=== PATIENT | female | born 1935 | race Caucasian/White ===

== ENCOUNTER 2021-02-23 12:46 | Emergency (ER) | payer MEDICARE ==
[2021-02-23] MEDS ORDERED: HYDROcodone/APAP 5-325MG 1 EACH TAB PO STA (13:12)
--- NOTE | 2021-02-23 13:19 | ED ---
General Adult HPI - General Chief complaint: Back Pain/Injury Stated complaint: Rash Time Seen by Provider: 02/23/21 13:03 Source: patient, RN notes reviewed Mode of arrival: wheelchair Limitations: no limitations - History of Present Illness Initial comments: Patient is a pleasant 85-year-old female presenting to the emergency Department with complaints of rash with discomfort left flank. Onset of symptoms was 2 days ago. Patient did have some mild discomfort a couple of days prior to that. Patient states rash is irritating when something touches it. Area starts in the left mid to lower back and does radiate around to the abdomen. Rash also follows the same distribution. No history of similar symptoms previously. Patient states her did have shingles once with similar rash. Discomfort is moderate. No fever. No headache. - Related Data Home Medications Medication Instructions Recorded Confirmed Acetaminophen [Tylenol] 500 mg PO Q6H PRN 06/04/16 06/16/16 Calcium Carbonate [Tums] 2 - 4 tab PO DAILY PRN 06/04/16 06/16/16 Cholecalciferol [Vitamin D3 (25 2,000 unit PO HS 06/04/16 06/16/16 Mcg = 1000 Iu)] Cyclobenzaprine [Flexeril] 5 mg PO Q8HR PRN 06/04/16 06/16/16 Famotidine [Pepcid] 20 mg OP DAILY 06/04/16 06/16/16 Ferrous Sulfate [Iron (65 MG 325 mg PO HS 06/04/16 06/16/16 Elemental)] Fluticasone Nasal [place] [Flonase 1 spray EA NOSTRIL DAILY 06/04/16 06/16/16 Nasal [place]] Furosemide [Lasix] 60 mg PO DAILY 06/04/16 06/16/16 HYDROcodone/APAP 7.5-325MG [[place] 1 tab PO Q6H PRN 06/04/16 06/16/16 7.5-325] Isosorbide Mononitrate ER [Imdur] 30 mg PO DAILY 06/04/16 06/16/16 Loratadine [Claritin] 10 mg PO DAILY PRN 06/04/16 06/16/16 Magnesium Hydroxide [Milk of 30 ml PO DAILY PRN 06/04/16 06/16/16 Magnesia] Metoprolol Tartrate [Lopressor] 12.5 mg PO HS 06/04/16 06/16/16 Sennosides [Senna] 8.6 mg PO BID 06/04/16 06/16/16 Simvastatin [Zocor] 10 mg PO HS 06/04/16 06/16/16 guaiFENesin [Mucinex] 600 mg PO Q12HR PRN 06/04/16 06/16/16 lisinopriL [Zestril] 10 mg PO BID 06/04/16 06/16/16 Previous Rx's Medication Instructions Recorded ALPRAZolam [Xanax] 0.25 mg PO TID PRN #90 tab 06/19/16 Aspirin 325 mg PO BID #60 tab 06/19/16 HYDROcodone/APAP 7.5-325MG [[place] 1 - 2 each PO Q6HR PRN #90 tab 06/19/16 7.5-325] Sennosides-Docusate Sodium 2 tab PO DAILY #60 tablet 06/19/16 [Senokot-S] bisacodyL [Dulcolax] 10 mg RECTAL DAILY PRN #0 supp 06/19/16 valACYclovir HCL [Valtrex] 1 tab PO BID #14 tablet 02/23/21 Allergies Allergy/AdvReac Type Severity Reaction Status Date / Time clarithromycin Allergy Nausea & Verified 02/23/21 12:53 Vomiting clindamycin Allergy Dyspnea Verified 02/23/21 12:53 Latex, Natural Rubber Allergy SWELLING Verified 02/23/21 12:52 AROUND FACE levalbuterol Allergy Dyspnea Verified 02/23/21 12:53 Penicillins Allergy Swelling Verified 02/23/21 12:52 Review of Systems ROS Statement: Those systems with pertinent positive or pertinent negative responses have been documented in the HPI. ROS Other: All systems not noted in ROS Statement are negative. Constitutional: Denies: fever, chills Eyes: Denies: eye pain ENT: Denies: ear pain Respiratory: Denies: cough Cardiovascular: Denies: chest pain Endocrine: Denies: fatigue Gastrointestinal: Reports: as per HPI Genitourinary: Denies: dysuria Musculoskeletal: Reports: as per HPI Skin: Reports: rash, lesions Neurological: Denies: weakness Past Medical History Past Medical History: Eye Disorder, GERD/Reflux, Hyperlipidemia, Hypertension, Osteoarthritis (OA) Additional Past Medical History / Comment(s): STAGE ONE GLAUCOMA Additional Past Surgical History / Comment(s): LT TKA X 2. ORIF LT LEG. COLONOSCOPY. HERNIA X 2 Additional Past Anesthesia/Blood Transfusion Reaction / Comment(s): OVER MEDICATED AFTER LT TKA. UTI. UNCONTROLLED PAIN BEFORE AND AFTER SURGERY Past Psychological History: No Psychological Hx Reported Smoking Status: Never smoker Past Alcohol Use History: None Reported Past Drug Use History: None Reported - Past Family History Mother Family Medical History: Cancer Additional Family Medical History / Comment(s): age 49 from breast cancer Father Family Medical History: Myocardial Infarction ([place]) Additional Family Medical History / Comment(s): in his 60's from [place] Brother(s) Family Medical History: Diabetes Mellitus Additional Family Medical History / Comment(s): 2nd brother was paralized from accident later from complications Sister(s) Family Medical History: Diabetes Mellitus General Exam Limitations: no limitations General appearance: alert, in no apparent distress Head exam: Present: normocephalic Eye exam: Present: normal appearance Neck exam: Present: normal inspection Respiratory exam: Present: normal lung sounds bilaterally Cardiovascular Exam: Present: regular rate, normal rhythm GI/Abdominal exam: Present: soft. Absent: distended, tenderness Extremities exam: Present: normal inspection Back exam: Present: normal inspection. Absent: vertebral tenderness Neurological exam: Present: alert Psychiatric exam: Present: normal affect, normal mood Skin exam: Present: rash (Patient does have 4 patches extending from her left upper lumbar through left mid abdomen with erythematous base and vesicular lesions.) Course Vital Signs 02/23/21 12:48 Temperature 97.8 F Pulse Rate 102 H Respiratory 18 Rate Blood Pressure 133/80 O2 Sat by Pulse 97 Oximetry Disposition Clinical Impression: Herpes zoster Disposition: HOME SELF-CARE Condition: Stable Instructions (If sedation given, give patient instructions): Shingles (ED), Shingles Vaccine (ED) Additional Instructions: Please do follow-up to primary care physician in the being the week. Prescr iption for antiviral medication has been sent to your pharmacy. Return for fevers, headaches weakness or confusion, worsening symptoms or other concerns. You may also take [id number] ibuprofen for discomfort. Lidocaine patches may also be used. Prescriptions: valACYclovir HCL [Valtrex] 1 tab PO BID #14 tablet Is patient prescribed a controlled substance at d/c from ED?: No Referrals: Bharath Hermosillo MD [Primary Care Provider] - 1-2 days Time of Disposition: 13:17
[2021-02-23] MEDS ORDERED: ACET/COD 300 MG/30 MG STARTER PACK 6 TAB BTL PO STA (14:03)
[2021-02-23] MEDS ORDERED: valACYclovir HCL 1,000 MG TABLET PO STA (14:03)
[2021-02-23 14:51] VITALS: BP 121/70; PULSE 98; RESP 20; TEMP 98
== END 2021-02-23 14:25 | disposition home or self-care (01) ==
LOC: EC 12:46
DX: B02.9 Zoster without complications (principal); M19.90 Unspecified osteoarthritis, unspecified site; K21.9 Gastro-esophageal reflux disease without esophagitis; I10 Essential (primary) hypertension; Z88.1 Allergy status to other antibiotic agents; Z88.0 Allergy status to penicillin; Z91.040 Latex allergy status; Z88.8 Allergy status to other drugs, medicaments and biological substances; Z79.82 Long term (current) use of aspirin; Z79.899 Other long term (current) drug therapy
CPT/HCPCS: 99282

== ENCOUNTER → 2021-05-22 | Outpatient (CLI) | payer MEDICARE ==
--- NOTE | 2021-05-23 07:26 | ECHOF ---
Referral Reason:I48.91 Afib MEASUREMENTS -------- HEIGHT: 165.1 cm WEIGHT: 102.1 kg BP: 129/57 RVIDd: 2.6 cm (< 3.3) IVSd: 1.2 cm (0.6 - 1.1) LVIDd: 4.7 cm (3.9 - 5.3) LVPWd: 1.1 cm (0.6 - 1.1) IVSs: 1.4 cm LVIDs: 3.6 cm LVPWs: 1.4 cm LA Diam: 4.0 cm (2.7 - 3.8) LAESV Index (A-L): 30.32 ml/m Ao Diam: 3.0 cm (2.0 - 3.7) AV Cusp: 1.5 cm (1.5 - 2.6) MV EXCURSION: 13.666 mm (> 18.000) MV EF SLOPE: 73 mm/s (70 - 150) EPSS: 0.8 cm RAP: 5.00 mmHg RVSP: 40.30 mmHg FINDINGS -------- Atrial fibrillation. This was a technically adequate study. The left ventricular size is normal. There is borderline concentric left ventricular hypertrophy. Overall left ventricular systolic function is low-normal with, an EF between 50 - 55 %. The right ventricle is normal in size. LA is midly dilated 29-33ml/m2. The right atrium is normal in size. Interatrial and interventricular septum intact. There is mild aortic valve sclerosis. Trace amount of aortic regurgitation. Mild tricuspid regurgitation present. There is mild pulmonary hypertension. The right ventricular systolic pressure, as measured by Doppler, is 40.30mmHg. Trace/mild (physiologic) pulmonic regurgitation. The aortic root size is normal. Normal inferior vena cava with normal inspiratory collapse consistent with estimated right atrial pre ssure of 5 mmHg. There is no pericardial effusion. CONCLUSIONS -------- 1. The left ventricular size is normal. 2. There is borderline concentric left ventricular hypertrophy. 3. Overall left ventricular systolic function is low-normal with, an EF between 50 - 55 %. 4. LA is midly dilated 29-33ml/m2. 5. Interatrial and interventricular septum intact. 6. There is mild aortic valve sclerosis. 7. Trace amount of aortic regurgitation. 8. Mild tricuspid regurgitation present. 9. There is mild pulmonary hypertension. 10. The right ventricular systolic pressure, as measured by Doppler, is 40.30mmHg. 11. Trace/mild (physiologic) pulmonic regurgitation. 12. There is no pericardial effusion. LIGHTNING ROD INSTALLER: Alycia Arteaga RDCS
== END | disposition home or self-care (01) ==
LOC: RADECHMAIN 14:35
PROVIDERS: ATTEND Internal Medicine Geriatric Medicine
DX: I51.7 Cardiomegaly (principal); I35.8 Other nonrheumatic aortic valve disorders; I35.1 Nonrheumatic aortic (valve) insufficiency; I27.20 Pulmonary hypertension, unspecified; I37.1 Nonrheumatic pulmonary valve insufficiency; I48.91 Unspecified atrial fibrillation
CPT/HCPCS: 93306

== ENCOUNTER 2024-01-26 18:39 | Observation (INO) | payer MEDICARE ==
[2024-01-26 19:37] LABS: Basophils # (A) 0.1 k/uL (0-0.2); Basophils % (A) 1 %; Eosinophils # (A) 0.2 k/uL (0-0.7); Eosinophils % (A) 4 %; HCT 37.5 % (34.0-46.0); HGB 12.7 gm/dL (11.4-16.0); Lymphocytes # (A) 2.1 k/uL (1.0-4.8); Lymphocytes % (A) 35 %; MCH 36.3 pg (25.0-35.0); MCHC 33.9 g/dL (31.0-37.0); MCV 107.1 fL (80.0-100.0); Macrocytosis Moderate; Mean Platelet Volume 8.2; Monocytes # (A) 0.5 k/uL (0-1.0); Monocytes % (A) 8 %; Neutrophils # (A) 2.9 k/uL (1.3-7.7); Neutrophils % (A) 49 %; Platelet Count 194 k/uL (150-450); RDW 12.5 % (11.5-15.5)
--- NOTE | 2024-01-26 19:41 | ED ---
General Adult HPI - General Chief complaint: Extremity Injury, Lower Stated complaint: Swelling in legs Time Seen by Provider: 01/26/24 18:52 Source: patient, RN notes reviewed Mode of arrival: ambulatory Limitations: no limitations - History of Present Illness Initial comments: 88-year-old female presents to the emergency department for evaluation of b ilateral lower extremity edema. She states that over the past few weeks she has noticed worsening edema to both of her legs. She does report that she takes water pills. She admits to shortness of breath when she bends over. Denies orthopnea or PND. Denies fever, chills. Denies chest pain. - Related Data Home Medications Medication Instructions Recorded Confirmed Cholecalciferol [Vitamin D3 (25 50 mcg PO W/LUNCH 06/04/16 01/26/24 Mcg = 1000 Iu)] Ferrous Sulfate [Iron (65 MG 325 mg PO W/SUPPER 06/04/16 06/16/16 Elemental)] Fluticasone Nasal [place] [Flonase 1 spr EA NOSTRIL DAILY PRN 06/04/16 01/26/24 Nasal [place]] Isosorbide Mononitrate ER [Imdur] 30 mg PO DAILY 06/04/16 01/26/24 Metoprolol Tartrate [Lopressor] 25 mg PO BID 06/04/16 01/26/24 guaiFENesin [Mucinex] 600 mg PO Q12HR PRN 06/04/16 01/26/24 Albuterol Inhaler [Ventolin Hfa 1 - 2 puff INHALATION RT-QID PRN 01/26/24 01/26/24 Inhaler] Apixaban [Eliquis] 5 mg PO BID 01/26/24 01/26/24 Brimonidine Tartrate [Alphagan P 1 drop BOTH EYES BID 01/26/24 01/26/24 0.2% Ophth Soln] Budesonide [Pulmicort] 0.5 mg INHALATION RT-BID PRN 01/26/24 01/26/24 Bumetanide [BUMEX] 2 mg PO W/SUPPER 01/26/24 01/26/24 Bumetanide [BUMEX] 4 mg PO DAILY 01/26/24 01/26/24 Cetirizine HCl [Zyrtec] 10 mg PO W/LUNCH 01/26/24 01/26/24 Circulation And Vein Support 1 tab PO W/SUPPER 01/26/24 01/26/24 Ibandronate Sodium [Boniva] 150 mg PO Q30D 01/26/24 01/26/24 L.acidoph,Paracasei, B.lactis 1 cap PO DAILY 01/26/24 01/26/24 [Probiotic] Latanoprost [Latanoprost 0.005%] 1 drop BOTH EYES HS 01/26/24 01/26/24 Montelukast [Singulair] 10 mg PO HS 01/26/24 01/26/24 Multivit-Min/Folic Acid/Biotin 133.3 mcg PO W/SUPPER 01/26/24 01/26/24 [Hair, Skin and Nails Softgel] [place]-3(Unknown Dose) 1 cap PO W/LUNCH 01/26/24 01/26/24 Pantoprazole [Protonix] 40 mg PO W/SUPPER 01/26/24 01/26/24 Potassium Chloride ER [K-Dur 20] 40 meq PO BID 01/26/24 01/26/24 Primidone 100 mg PO BID-W/MEALS 01/26/24 01/26/24 Rosuvastatin [Crestor] 10 mg PO HS 01/26/24 01/26/24 Spironolactone [Aldactone] 25 mg PO DAILY 01/26/24 01/26/24 Vit C/E/Zn/Coppr/Lutein/Zeaxan 1 cap PO BID@1000,2100 01/26/24 01/26/24 [Preservision Areds 2 Softgel] allopurinoL 100 mg PO DAILY 01/26/24 01/26/24 metOLazone [Zaroxolyn] 2.5 mg PO Q2D 01/26/24 01/26/24 rOPINIRole HCL [Requip] 1 mg PO BID@1700,2100 01/26/24 01/26/24 traZODone HCL 100 mg PO HS 01/26/24 01/26/24 Allergies Allergy/AdvReac Type Severity Reaction Status Date / Time clarithromycin Allergy Nausea & Verified 01/26/24 18:47 Vomiting clindamycin Allergy Dyspnea Verified 01/26/24 18:47 Latex, Natural Rubber Allergy SWELLING Verified 01/26/24 18:47 AROUND FACE levalbuterol Allergy Dyspnea Verified 01/26/24 18:47 Penicillins Allergy Swelling Verified 01/26/24 18:47 Review of Systems ROS Statement: Those systems with pertinent positive or pertinent negative responses have been documented in the HPI. ROS Other: All systems not noted in ROS Statement are negative. Past Medical History Past Medical History: Eye Disorder, GERD/Reflux, Hyperlipidemia, Hypertension, Osteoarthritis (OA) Additional Past Medical History / Comment(s): STAGE ONE GLAUCOMA History of Any Multi-Drug Resistant Organisms: None Reported Additional Past Surgical History / Comment(s): LT TKA X 2. ORIF LT LEG. COLONOSCOPY. HERNIA X 2 Additional Past Anesthesia/Blood Transfusion Reaction / Comment(s): OVER MEDICATED AFTER LT TKA. UTI. UNCONTROLLED PAIN BEFORE AND AFTER SURGERY Past Psychological History: No Psychological Hx Reported Smoking Status: Never smoker Past Alcohol Use History: None Reported Past Drug Use History: None Reported - Past Family History Mother Family Medical History: Cancer Additional Family Medical History / Comment(s): age 49 from breast cancer Father Family Medical History: Myocardial Infarction ([place]) Additional Family Medical History / Comment(s): in his 60's from [place] Brother(s) Family Medical History: Diabetes Mellitus Additional Family Medical History / Comment(s): 2nd brother was paralized from accident later from complications Sister(s) Family Medical History: Diabetes Mellitus General Exam Limitations: no limitations General appearance: alert, in no apparent distress Head exam: Present: atraumatic, normocephalic, normal inspection Eye exam: Present: normal appearance, PERRL, EOMI. Absent: scleral icterus, conjunctival injection, periorbital swelling ENT exam: Present: normal exam, mucous membranes moist Respiratory exam: Present: rales (Minimal on the basis of bilateral lungs). Absent: respiratory distress, wheezes, rhonchi, stridor Cardiovascular Exam: Present: regular rate, irregular rhythm, normal heart sounds. Absent: systolic murmur, diastolic murmur, rubs, gallop, clicks GI/Abdominal exam: Present: soft, normal bowel sounds. Absent: distended, tenderness, guarding, rebound, rigid Extremities exam: Present: full ROM, tenderness, normal capillary refill, pedal edema, other (2+ pitting edema bilateral lower extremities). Absent: joint swelling, calf tenderness Back exam: Present: normal inspection Neurological exam: Present: alert, oriented X3 Psychiatric exam: Present: normal affect, normal mood Skin exam: Present: warm, dry, intact, normal color. Absent: rash Course Vital Signs 01/26/24 01/26/24 01/26/24 18:44 19:15 22:35 Temperature 98.0 F Pulse Rate 66 75 70 Respiratory 16 18 18 Rate Blood Pressure 124/73 126/80 135/68 O2 Sat by Pulse 98 99 97 Oximetry - Reevaluation(s) Reevaluation #1: 01/26/24 22:15 Patient reevaluated and informed on results of laboratory studies, chest x-ray. Patient states that she had some pressure in her chest which was new. She did not have this pain when she arrived to the ED. Repeat EKG and troponin obtained. EKG at 2221 shows A-fib with a rate of 76, compared to prior EKG at 1855 which shows no acute T wave changes. Reevaluation #2: 01/26/24 23:00 Patient had negative troponin. Discussed with patient and family. Spoke with Dr. Hermosillo. Patient will be admitted for CHF exacerbation, chest pain. 01/26/24 23:21 Medical Decision Making - Medical Decision Making Was pt. sent in by a medical professional or institution (, PA, FAMILY RESOURCE SPECIALIST, urgent care, hospital, or [place] health care facility...) When possible be specific @ -No Did you speak to anyone other than the patient for history (EMS, parent, family, police, friend...)? What history was obtained from this source @ -No Did you review nursing and triage notes (agree or disagree)? Why? @ -I reviewed and agree with nursing and triage notes Were old charts reviewed (outside hosp., previous admission, EMS record, old EKG, old radiological studies, urgent care reports/EKG's, [place] health care facility records)? Report findings @ -No old charts were reviewed Differential Diagnosis (chest pain, altered mental status, abdominal pain women, abdominal pain men, vaginal bleeding, weakness, fever, dyspnea, syncope, headache, dizziness, GI bleed, back pain, seizure, CVA, palpatations, mental health, musculoskeletal)? @ -Differential Chest Pain: Stable Angina, Unstable Angina, STEMI, NSTEMI Aortic Dissection, Pneumothorax, Musculoskeletal, Esophageal Spasm GERD, Cholecystitis, Pancreatitis, Zoster, this is not meant to be an all-inclusive list. EKG interpreted by me (3pts min.). @ -EKG at 1855 shows A-fib rate 74, QRS 114, QTQTc [id number] EKG at 2221 shows A-fib rate 76, QRS 109, QTQTc [id number] X-rays interpreted by me (1pt min.). @ -Chest x-ray shows cardiomegaly with mild pulmonary vascular congestion CT interpreted by me (1pt min.). @ -None done U/S interpreted by me (1pt. min.). @ -None done What testing was considered but not performed or refused? (CT, X-rays, U/S, labs)? Why? @ -None What meds were considered but not given or refused? Why? @ -None Did you discuss the management of the patient with other professionals (professionals i.e. , PA, FAMILY RESOURCE SPECIALIST, lab, RT, psych nurse, clinical social worker, account maintenance representative, teacher, chief scientific officer, pillowcase cutter)? Give summary @ -Discussed with Dr. Hermosillo, patient will be admitted as observation for chest pain, CHF exacerbation, cardiology will be consulted Was smoking cessation discussed for >3mins.? @ -No Was critical care preformed (if so, how long)? @ -No Were there social determinants of health that impacted care today? How? (Homelessness, low income, unemployed, alcoholism, drug addiction, transportation, low edu. Level, literacy, decrease access to med. care, snf, rehab)? @ -No Was there de-escalation of care discussed even if they declined (Discuss DNR or withdrawal of care, Hospice)? DNR status @ -No What co-morbidities impacted this encounter? (DM, HTN, Smoking, COPD, CAD, Cancer, CVA, ARF, Chemo, Hep., AIDS, mental health diagnosis, sleep apnea, morbid obesity)? @ -CHF, Was patient admitted / discharged? Hospital course, mention meds given and route, prescriptions, significant lab abnormalities, going to OR and other pertinent info. @ -Admitted. Patient presented to the emergency department for evaluation of lower extremity edema. Laboratory studies obtained. CBC shows normal WBC at 6.0, normal h/h; normal coagulation studies; elevated BUN at 58, creatinine 1.24; elevated BNP 3050 ; negative troponin. Chest x-ray shows cardiomegaly with mild pulmonary vascular congestion. While in ED, patient started experiencing chest pressure. Repeat EKG was performed which showed no acute T wave, ST abnormalities. Troponin was obtained which was negative. Repeat troponins will be drawn. Case was discussed with patient's primary care provider, Dr. Hermosillo who is accepting of the admission. Patient will be admitted for observation for chest pain, CHF exacerbation. Consult for cardiology. Patient and family understanding agreeable with plan. Patient stable at time of discharge. Case discussed with Dr. Lou Undiagnosed new problem with uncertain prognosis? @ -No Drug Therapy requiring intensive monitoring for toxicity (Heparin, Nitro, Insulin, Cardizem)? @ -No Were any procedures done? @ -No Diagnosis/symptom? @ -CHF exacerbation, chest pain Acute, or Chronic, or Acute on Chronic? @ -acute Uncomplicated (without systemic symptoms) or Complicated (systemic symptoms)? @ -uncomplicated Side effects of treatment? @ -No Exacerbation, Progression, or Severe Exacerbation? @ -No Poses a threat to life or bodily function? How? (Chest pain, [place], MA, pneumonia, PE, COPD, DKA, ARF, appy, cholecystitis, CVA, Diverticulitis, Homicidal, Suicidal, threat to staff... and all critical care pts) @ -No - Lab Data Result diagrams: 01/26/24 19:29 01/26/24 19:29 Lab Results 01/26/24 01/26/24 01/26/24 Range/Units 19:29 19:29 19:29 WBC 6.0 (3.8-10.6) k/uL RBC 3.50 L (3.80-5.40) m/uL Hgb 12.7 (11.4-16.0) gm/dL Hct 37.5 (34.0-46.0) % MCV 107.1 H (80.0-100.0) fL MCH 36.3 H (25.0-35.0) pg MCHC 33.9 (31.0-37.0) g/dL RDW 12.5 (11.5-15.5) % Plt Count 194 (150-450) k/uL MPV 8.2 Neutrophils % 49 % Lymphocytes % 35 % Monocytes % 8 % Eosinophils % 4 % Basophils % 1 % Neutrophils # 2.9 (1.3-7.7) k/uL Lymphocytes # 2.1 (1.0-4.8) k/uL Monocytes # 0.5 (0-1.0) k/uL Eosinophils # 0.2 (0-0.7) k/uL Basophils # 0.1 (0-0.2) k/uL Macrocytosis Moderate PT 10.6 (10.0-12.5) sec INR 1.0 (<1.2) APTT 22.2 (22.0-30.0) sec Sodium 136 L (137-145) mmol/L Potassium 3.6 (3.5-5.1) mmol/L Chloride 93 L (98-107) mmol/L Carbon Dioxide 36 H (22-30) mmol/L Anion Gap 7 mmol/L BUN 58 H (7-17) mg/dL Creatinine 1.24 H (0.52-1.04) mg/dL Est GFR (CKD-EPI)AfAm 45 (>60 ml/min/1.73 sqM) Est GFR (CKD-EPI)NonAf 39 (>60 ml/min/1.73 sqM) Glucose 104 H (74-99) mg/dL Calcium 9.0 (8.4-10.2) mg/dL Total Bilirubin 0.4 (0.2-1.3) mg/dL AST 19 (14-36) U/L ALT 14 (4-34) U/L Alkaline Phosphatase 59 (38-126) U/L Troponin I (0.000-0.034) ng/mL NT-Pro-B Natriuret Pep 3050 pg/mL Total Protein 6.5 (6.3-8.2) g/dL Albumin 3.7 (3.5-5.0) g/dL Urine Color Urine Appearance (Clear) Urine pH (5.0-8.0) Ur Specific [place] (1.001-1.035) Urine Protein (Negative) Urine Glucose (UA) (Negative) Urine Ketones (Negative) Urine Blood (Negative) Urine Nitrite (Negative) Urine Bilirubin (Negative) Urine Urobilinogen (<2.0) mg/dL Ur Leukocyte Esterase (Negative) Urine RBC (0-5) /hpf Urine WBC (0-5) /hpf Ur Squamous Epith Cells (0-4) /hpf Urine Bacteria (None) /hpf Hyaline Casts (0-2) /lpf Granular Casts (0) /lpf 01/26/24 01/26/24 Range/Units 21:30 22:26 WBC (3.8-10.6) k/uL RBC (3.80-5.40) m/uL Hgb (11.4-16.0) gm/dL Hct (34.0-46.0) % MCV (80.0-100.0) fL MCH (25.0-35.0) pg MCHC (31.0-37.0) g/dL RDW (11.5-15.5) % Plt Count (150-450) k/uL MPV Neutrophils % % Lymphocytes % % Monocytes % % Eosinophils % % Basophils % % Neutrophils # (1.3-7.7) k/uL Lymphocytes # (1.0-4.8) k/uL Monocytes # (0-1.0) k/uL Eosinophils # (0-0.7) k/uL Basophils # (0-0.2) k/uL Macrocytosis PT (10.0-12.5) sec INR (<1.2) APTT (22.0-30.0) sec Sodium (137-145) mmol/L Potassium (3.5-5.1) mmol/L Chloride (98-107) mmol/L Carbon Dioxide (22-30) mmol/L Anion Gap mmol/L BUN (7-17) mg/dL Creatinine (0.52-1.04) mg/dL Est GFR (CKD-EPI)AfAm (>60 ml/min/1.73 sqM) Est GFR (CKD-EPI)NonAf (>60 ml/min/1.73 sqM) Glucose (74-99) mg/dL Calcium (8.4-10.2) mg/dL Total Bilirubin (0.2-1.3) mg/dL AST (14-36) U/L ALT (4-34) U/L Alkaline Phosphatase (38-126) U/L Troponin I <0.012 (0.000-0.034) ng/mL NT-Pro-B Natriuret Pep pg/mL Total Protein (6.3-8.2) g/dL Albumin (3.5-5.0) g/dL Urine Color Colorless Urine Appearance Clear (Clear) Urine pH 7.0 (5.0-8.0) Ur Specific [place] 1.016 (1.001-1.035) Urine Protein Negative (Negative) Urine Glucose (UA) Negative (Negative) Urine Ketones Negative (Negative) Urine Blood Negative (Negative) Urine Nitrite Negative (Negative) Urine Bilirubin Negative (Negative) Urine Urobilinogen <2.0 (<2.0) mg/dL Ur Leukocyte Esterase Large H (Negative) Urine RBC 1 (0-5) /hpf Urine WBC 16 H (0-5) /hpf Ur Squamous Epith Cells 2 (0-4) /hpf Urine Bacteria Rare H (None) /hpf Hyaline Casts 1 (0-2) /lpf Granular Casts 1 (0) /lpf Disposition Clinical Impression: Chest pain, CHF exacerbation Disposition: ADMITTED IP TO THIS HOSP Condition: Stable Is patient prescribed a controlled substance at d/c from ED?: No Referrals: Bharath Hermosillo MD [Primary Care Provider] - 1-2 days
[2024-01-26 19:59] LABS: ALT 14 U/L (4-34); AST 19 U/L (14-36); African American GFR (CKD) 45 (>60 ml/min/1.73 sqM); Albumin 3.7 g/dL (3.5-5.0); Alkaline Phosphatase 59 U/L (38-126); Anion Gap 7 mmol/L; Blood Urea Nitrogen 58 mg/dL (7-17); Carbon Dioxide 36 mmol/L (22-30); Chloride 93 mmol/L (98-107); Glucose 104 mg/dL (74-99); Non-African American GFR(CKD) 39 (>60 ml/min/1.73 sqM); Potassium 3.6 mmol/L (3.5-5.1); Sodium 136 mmol/L (137-145); Total Bilirubin 0.4 mg/dL (0.2-1.3); Total Protein 6.5 g/dL (6.3-8.2)
[2024-01-26 20:00] LABS: Partial Thromboplastin Time 22.2 sec (22.0-30.0); Prothrombin Time 10.6 sec (10.0-12.5)
[2024-01-26 20:07] LABS: NT-Pro-B-Type Natriuretic Pept 3050 pg/mL
--- NOTE | 2024-01-26 20:37 | XR ---
EXAMINATION TYPE: XR chest 2V DATE OF EXAM: 01/26/2024 8:25 PM CLINICAL INDICATION:Female, 88 years old with history of shortness of breath; [facility] COMPARISON: Chest radiographs from 06/18/2016 TECHNIQUE: XR chest 2V Frontal and lateral views of the chest. FINDINGS: Lungs/Pleura: There is no evidence of pleural effusion, focal consolidation, or pneumothorax. Pulmonary vascularity: Pulmonary vascular congestion. Heart/mediastinum: Cardiomediastinal silhouette is prominent in size. Musculoskeletal: No acute osseous pathology. IMPRESSION: Cardiomegaly and mild pulmonary vascular congestion. Correlate with BNP for congestive heart failure.
[2024-01-26 22:06] LABS: Appearance,Urine Clear (Clear); Bacteria,Urine Rare /hpf; Bilirubin,Urine Negative (Negative); Blood,Urine Negative (Negative); Color,Urine Colorless; Glucose,Urine (UA) Negative (Negative); Granular Casts,Urine 1 /lpf (0); Hyaline Casts,Urine 1 /lpf (0-2); Ketones,Urine Negative (Negative); Leukocyte Esterase,Urine Large (Negative); Nitrite,Urine Negative (Negative); Protein,Urine Negative (Negative); RBC,Urine 1 /hpf (0-5); Specific Gravity,Urine 1.016 (1.001-1.035); Squamous Epithelial Cell,Urine 2 /hpf (0-4); Urobilinogen,Urine <2.0 mg/dL (<2.0); WBC,Urine 16 /hpf (0-5)
[2024-01-26] MEDS ORDERED: NALOXONE 0.4 MG/ML 1 ML VIAL IV PRN (22:58)
[2024-01-26] MEDS: MORPHINE SULFATE 4 MG/ML SYRINGE IV PRN (23:32)
[2024-01-26] MEDS: FUROSEMIDE 10 MG/ML 4 ML VIAL IV STA (23:34)
[2024-01-27] MEDS ORDERED: FLUTICASONE 50MCG/SPRAY NASAL 16GM EA NOSTRIL PRN (05:22)
[2024-01-27] MEDS ORDERED: guaiFENesin 600 MG TABLET.ER PO PRN (05:22)
[2024-01-27] MEDS: PRIMIDONE 50 MG TAB PO SCH (06:32)
--- NOTE | 2024-01-27 08:15 | P.HPIM ---
History of Present Illness H&P Date: 01/27/24 HISTORY OF PRESENT ILLNESS: 88-year-old one of our office patient with active medical history of hypertension, hyperlipidemia, A-fib, anasarca, GERD, essential tremor, mild s ystolic congestive heart failure, osteoporosis, chronic kidney disease, chronic anemia, who has a history of asthma as well and has been having significant worsening edema for the last few years with adjustment of her diuretics repeatedly to gain 12 pounds last 2 weeks according to family patient lives in [facility] [place] and take her medication regularly. Has been complaining of worsening shortness of breath and worsening edema along with slight discomfort in the legs bilaterally. Developing and to have PND and orthopnea not been able to lay down flat and tiredness fatigue with minimal exertion. Her Bumex is up to total of 4 mg in the morning 2 mg in the evening still on spironolactone and Zaroxolyn despite the change in medication less than 4 weeks ago patient edema become worse. Patient was seen at the emergency department at [facility] Found to have acute kidney injury with BUN 58 creatinine 1.24 with sodium of 136, her BNP was 3050 troponin was negative normal liver enzymes UA was positive as well patient has not been having any symptoms. EKG showed atrial fibrillation with pulse well- controlled at 76, chest x-ray showed cardiomegaly and mild pulmonary vascular congestion. Do not remember when patient had her echocardiogram last time she was diagnosed early with congestive heart failure and diastolic dysfunction along with her anasarca and lymphedema and the increase in medication and have been gradually she is known to have history of A-fib with mild atherosclerotic heart disease with no anginal signs and symptoms and has not had any heart cath or any intervention. Patient be hospitalized on IV diuretics will adjust her medication consult cardiology echocardiogram will be done repeat CK troponin x 3. REVIEW OF SYSTEMS: CONSTITUTIONAL: Obese in slight distress. EYES: No icterus sclerae, no conjunctivitis. EARS, NOSE, MOUTH, THROAT, and FACE: No sore throat, lymphadenopathy, carotid bruits or deformity. RESPIRATORY: Mild shortness of breath with mild cough no wheezes. CARDIOVASCULAR: Positive PND orthopnea palpitation.. GASTROINTESTINAL: No Abd pain, Nausea or vomiting, no Diarrhea or constipation, No GI Bleed, no distention or masses. GENITOURINARY: Negative for Hematuria or UTI, no kidney stones. Worsening incontinence and recurrent UTI. INTEGUMENT/BREAST: Negative for any muscular injury with mild osteoarthritis. Generalized arthralgia and myalgia. HEMATOLOGIC/LYMPHATIC: Negative for bleed or purpura. MUSCULOSKELTAL: Negative for Myalgia or arthralgia. NEURLOGICAL: No LOC, Sz or syncope, blurred vision dizziness or abnormality. Positive signs of resting tremor. BEHAVIORAL/PSYCH: Negative. ENDOCRINE: Negative. PHYSICAL EXAMINATION: General Appearance: Alert, cooperative, no distress, appears stated age. Neck HEENT: Supple, no lymphadenopathy, no thyroid enlargement, no carotid bruits. Lungs: Decreased breath sound bilaterally with fine rhonchi mild crackles in the bases with mild expiratory wheezes. Chest Wall: Decreased expansion with deep inspiration no tenderness and no deformity was found on exam, no costochondral pain or discomfort. Heart: Irregular rate and rhythm, S1, S2 positive S3 positive systolic murmur. Back: Symmetric, no curvature, ROM normal, no CVA tenderness. Abdomen: Soft, non-tender, bowel sounds active all four quadrants, no masses, no organomegaly. Extremities: 2+ edema with lymphedema as well as slight discoloration bilateral feet are quite bit swelling as well. Pulses: 2+ and symmetric. Skin: Skin color, texture, tugor normal, no rashes or lesions. Neurologic: Alert oriented x3 cranial nerves II through XII intact, no motor de ficit, no abnormal balance or gait. Has essential tremor. ASSESSMENT AND PLAN: _Significant fluid overload and dyspnea: Mostly sign of diastolic congestive heart failure, patient be hospitalized continue IV diuretics resume spironolactone and Zaroxolyn for now continue IV diuretics then IV drip if needed. Consult cardiology, echocardiogram will be done and watch her urine output along with kidney function over the next 2 days. _Atherosclerotic heart disease: With no chest pain or angina, repeat echo continue current management. Isosorbide, metoprolol will add smaller dose of ARB. _A-fib with RVR: Pulse rates under control continue Lopressor 25 mg. Based cat g Eliquis 5 mg twice a day as well. _Asthma/COPD: Has been on Ventolin and Pulmicort has been doing well with it and switch patient to nebulizer if needed. _Acute kidney disease with chronic kidney failure, continue diuretics with watch kidney function closely as well. _ UTI: will start Rocephin today and switch to oral by tomorrow. _Chronic iron deficiency anemia: Still on iron supplement on regular basis. _Chronic hypokalemia: Has improved significantly since start using spironolactone. _Essential tremor with no sign of parkinsonism: Has been on primidone total of 50 mg twice a day. _Restless leg syndrome: Continue Requip 1 mg twice a day. _Hyperlipidemia: Has been on Crestor 10 mg a day. _Severe GERD: Patient remain on pantoprazole 40 mg daily. _Osteoporosis: Remain on Boniva 150 mg monthly along with calcium and vitamin D. _GI prophylaxis: Will continue patient on pantoprazole. _DVT prophylaxis: Still on Eliquis 5 mg twice a day. CODE STATUS: Full code. Admit patient to the inpatient service for more than 2 night stay. Past Medical History Past Medical History: Eye Disorder, GERD/Reflux, Hyperlipidemia, Hypertension, Osteoarthritis (OA) Additional Past Medical History / Comment(s): STAGE ONE GLAUCOMA History of Any Multi-Drug Resistant Organisms: None Reported Additional Past Surgical History / Comment(s): LT TKA X 2. ORIF LT LEG. COLONOSCOPY. HERNIA X 2 Additional Past Anesthesia/Blood Transfusion Reaction / Comment(s): OVER MEDICATED AFTER LT TKA. UTI. UNCONTROLLED PAIN BEFORE AND AFTER SURGERY Past Psychological History: No Psychological Hx Reported Smoking Status: Never smoker Past Alcohol Use History: None Reported Past Drug Use History: None Reported - Past Family History Mother Family Medical History: Cancer Additional Family Medical History / Comment(s): age 49 from breast cancer Father Family Medical History: Myocardial Infarction ([place]) Additional Family Medical History / Comment(s): in his 60's from mi Brother(s) Family Medical History: Diabetes Mellitus Additional Family Medical History / Comment(s): 2nd brother was paralized from accident later from complications Sister(s) Family Medical History: Diabetes Mellitus Medications and Allergies Home Medications Medication Instructions Recorded Confirmed Type Cholecalciferol [Vitamin D3 (25 50 mcg PO W/LUNCH 06/04/16 01/26/24 History Mcg = 1000 Iu)] Ferrous Sulfate [Iron (65 MG 325 mg PO W/SUPPER 06/04/16 06/16/16 History Elemental)] Fluticasone Nasal [place] [Flonase 1 spr EA NOSTRIL DAILY PRN 06/04/16 01/26/24 History Nasal [place]] Isosorbide Mononitrate ER [Imdur] 30 mg PO DAILY 06/04/16 01/26/24 History Metoprolol Tartrate [Lopressor] 25 mg PO BID 06/04/16 01/26/24 History guaiFENesin [Mucinex] 600 mg PO Q12HR PRN 06/04/16 01/26/24 History Albuterol Inhaler [Ventolin Hfa 1 - 2 puff INHALATION RT-QID PRN 01/26/24 0 01/26/24 History Inhaler] Apixaban [Eliquis] 5 mg PO BID 01/26/24 01/26/24 History Brimonidine Tartrate [Alphagan P 1 drop BOTH EYES BID 01/26/24 01/26/24 History 0.2% Ophth Soln] Budesonide [Pulmicort] 0.5 mg INHALATION RT-BID PRN 01/26/24 01/26/24 History Bumetanide [BUMEX] 2 mg PO W/SUPPER 01/26/24 01/26/24 History Bumetanide [BUMEX] 4 mg PO DAILY 01/26/24 01/26/24 History Cetirizine HCl [Zyrtec] 10 mg PO W/LUNCH 01/26/24 01/26/24 History Circulation And Vein Support 1 tab PO W/SUPPER 01/26/24 01/26/24 History Ibandronate Sodium [Boniva] 150 mg PO Q30D 01/26/24 01/26/24 History L.acidoph,Paracasei, B.lactis 1 cap PO DAILY 01/26/24 01/26/24 History [Probiotic] Latanoprost [Latanoprost 0.005%] 1 drop BOTH EYES HS 01/26/24 01/26/24 History Montelukast [Singulair] 10 mg PO HS 01/26/24 01/26/24 History Multivit-Min/Folic Acid/Biotin 133.3 mcg PO W/SUPPER 01/26/24 01/26/24 History [Hair, Skin and Nails Softgel] [place]-3(Unknown Dose) 1 cap PO W/LUNCH 01/26/24 01/26/24 History Pantoprazole [Protonix] 40 mg PO W/SUPPER 01/26/24 01/26/24 History Potassium Chloride ER [K-Dur 20] 40 meq PO BID 01/26/24 01/26/24 History Primidone 100 mg PO BID-W/MEALS 01/26/24 01/26/24 History Rosuvastatin [Crestor] 10 mg PO HS 01/26/24 01/26/24 History Spironolactone [Aldactone] 25 mg PO DAILY 01/26/24 01/26/24 History Vit C/E/Zn/Coppr/Lutein/Zeaxan 1 cap PO BID@1000,2100 01/26/24 01/26/24 History [Preservision Areds 2 Softgel] allopurinoL 100 mg PO DAILY 01/26/24 01/26/24 History metOLazone [Zaroxolyn] 2.5 mg PO Q2D 01/26/24 01/26/24 History rOPINIRole HCL [Requip] 1 mg PO BID@1700,2100 01/26/24 01/26/24 History traZODone HCL 100 mg PO HS 01/26/24 01/26/24 History Allergies Allergy/AdvReac Type Severity Reaction Status Date / Time clarithromycin Allergy Nausea & Verified 01/26/24 18:47 Vomiting clindamycin Allergy Dyspnea Verified 01/26/24 18:47 Latex, Natural Rubber Allergy SWELLING Verified 01/26/24 18:47 AROUND FACE levalbuterol Allergy Dyspnea Verified 01/26/24 18:47 Penicillins Allergy Swelling Verified 01/26/24 18:47 Physical Exam Vitals: Vital Signs Temp Pulse Resp BP Pulse Ox 01/27/24 03:31 73 16 125/51 96 01/27/24 01:06 69 18 109/48 96 01/26/24 23:26 78 H 115/73 93 L 01/26/24 22:35 70 18 135/68 97 01/26/24 19:15 75 18 126/80 99 01/26/24 18:44 98.0 F 66 16 124/73 98 Intake and Output 01/26/24 01/26/24 01/27/24 14:59 22:59 06:59 Other: Weight 96.615 kg Results CBC & Chem 7: 01/26/24 19:29 01/26/24 19:29 Labs: Abnormal Lab Results - Last 24 Hours (Table) 01/26/24 01/26/2401/25/24 Range/Units 19:29 19:29 21:30 RBC 3.50 L (3.80-5.40) m/uL MCV 107.1 H (80.0-100.0) fL MCH 36.3 H (25.0-35.0) pg Sodium 136 L (137-145) mmol/L Chloride 93 L (98-107) mmol/L Carbon Dioxide 36 H (22-30) mmol/L BUN 58 H (7-17) mg/dL Creatinine 1.24 H (0.52-1.04) mg/dL Glucose 104 H (74-99) mg/dL Ur Leukocyte Esterase Large H (Negative) Urine WBC 16 H (0-5) /hpf Urine Bacteria Rare H (None) /hpf
[2024-01-27] MEDS: ISOSORBIDE MONONITRATE ER 30 MG TAB.ER.24H PO SCH (09:55)
[2024-01-27] MEDS: diphenhydrAMINE 25 MG CAP PO PRN (09:55)
[2024-01-27] MEDS: LACTOBACILLUS ACIDOPHILUS/PECT 1 EACH CAPSULE PO SCH (09:55)
[2024-01-27] MEDS: METOPROLOL TARTRATE 25 MG TAB PO SCH (09:55)
[2024-01-27] MEDS: SPIRONOLACTONE 25 MG TAB PO SCH (09:55)
[2024-01-27] MEDS: APIXABAN 5 MG TAB PO SCH (09:55)
[2024-01-27] MEDS: allopurinoL 100 MG TAB PO SCH (09:55)
[2024-01-27] MEDS: POTASSIUM CHLORIDE ER 20 MEQ TAB.ER PO SCH (09:56)
[2024-01-27] MEDS: VIT A,C & E-LUTEIN-MINERALS 1 EACH TAB PO SCH (09:59)
[2024-01-27] MEDS: metOLazone 2.5 MG TAB PO SCH (09:59)
[2024-01-27] MEDS: BRIMONIDINE TARTRATE 0.2% DROPS 5 ML BTL BOTH EYES SCH (09:59)
[2024-01-27] MEDS: FUROSEMIDE 10 MG/ML 10 ML VIAL IV SCH (10:05)
--- NOTE | 2024-01-27 10:50 | P.CRDCN ---
History of Present Illness Consult date: 01/27/24 Consult reason: chest pain, congestive heart failure History of present illness: History of present illness: This is an 88-year-old female patient of Dr. 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 We have been asked to evaluate the patient for chest pain and CHF. Patient gives history that she came into the hospital with lower extremity edema. She states she has been taking her water pills and the swelling has not gone down. She feels that she is not urinating very much even though she is taking all of her medications as directed. She states she is also following a low-sodium diet. She states she has developed some right lower extremity cellulitis and has been started on antibiotics. She states the symptoms have been going on for couple weeks and not improving. Patient has had a weight gain of 14 pounds. Patient also has left-sided pressure in her chest that started while she was in the emergency center. She states is better now but she occasionally feels a little heaviness. Patient is seen today in the emergency center waiting for a bed on the observation unit. Patient is status post 1 dose of IV Lasix 40 mg followed by 60 mg IV every 8 hours. EKG atrial fibrillation with ventricular rate of 76 Chest x-ray: Cardiomegaly and mild pulmonary vascular congestion. Correlate for heart failure. WBC 6, hemoglobin 12.7. Sodium 136, potassium 3.6, BUN 58, creatinine 1.24. Troponin negative x 3. proBNP 3050. Urinalysis reveals leukoesterase large, WBCs 16. Home cardiac medications: Eliquis 5 mg twice daily, Bumex 4 mg in the morning and 2 mg with supper, Imdur 30 mg daily, Zaroxolyn 2.5 mg every 2 days, Lopressor 25 mg twice daily, K. Dur 40 mEq twice daily, Crestor 10 mg at bedtime, Aldactone 25 mg daily. Echocardiogram performed in the office on 01/13/2024 reveals EF 55%. Mild co ncentric left ventricular hypertrophy. Mild aortic regurgitation. Moderate to severe mitral regurgitation. Moderate tricuspid regurgitation. PASP 48 mmHg. Review Of Systems: At the time of my exam: CONSTITUTIONAL: Denies fever or chills. HEENT: Denies blurred vision, vision changes, or eye pain. Denies hemoptysis CARDIOVASCULAR: Denies chest pain. Denies orthopnea. Denies PND. Denies palpita tions. Reports lower extremity edema RESPIRATORY: Denies shortness of breath. GASTROINTESTINAL: Denies abdominal pain. Denies nausea or vomiting. HEMATOLOGIC: Denies bleeding disorders. GENITOURINARY: Denies any blood in urine. SKIN: Denies pruitis. Denies rash. Physical examination: Gen: This is an 88-year-old female in no acute distress VS: reviewed blood pressure 127/62, heart rate 72, pulse ox 95%. HEENT: Head is atraumatic, normocephalic. Pupils equal, round. Sclerae is anicteric. NECK: Supple. No JVD. LUNGS: Clear to auscultation. No wheezes or rhonchi. No intercostal retractions . HEART: Irregular rate and rhythm. Systolic murmur at the right and left upper sternal border. ABDOMEN: Soft No tenderness. EXTREMITIES: 2+ lower extremity edema. No calf tenderness. NEUROLOGICAL: Patient is awake, alert and oriented x3. Assessment: Acute on chronic diastolic heart failure Valvular heart disease with mild aortic regurgitation, moderate to severe mitral regurgitation Pulmonary hypertension Permanent atrial fibrillation Hypertension Dyslipidemia Chronic kidney disease Possible urinary tract infection Plan: Resume patient's home cardiac medications Continue IV Lasix 60 mg every 8 hours Monitor SORAYA, daily weights, electrolytes and renal function No need to repeat echocardiogram as this was done in the office on 01/13/2024 Plan will be for outpatient CONRADO and catheterization at a later date to further evaluate valvular heart disease Further recommendations to follow based upon clinical course Thank you kindly for this consultation. Nurse practitioner note has been reviewed, I agree with documented findings and plan of care. Patient was seen and examined. Past Medical History Past Medical History: Eye Disorder, GERD/Reflux, Hyperlipidemia, Hypertension, Osteoarthritis (OA) Additional Past Medical History / Comment(s): STAGE ONE GLAUCOMA History of Any Multi-Drug Resistant Organisms: None Reported Additional Past Surgical History / Comment(s): LT TKA X 2. ORIF LT LEG. COLONOSCOPY. HERNIA X 2 Additional Past Anesthesia/Blood Transfusion Reaction / Comment(s): OVER MEDICATED AFTER LT TKA. UTI. UNCONTROLLED PAIN BEFORE AND AFTER SURGERY Past Psychological History: No Psychological Hx Reported Smoking Status: Never smoker Past Alcohol Use History: None Reported Past Drug Use History: None Reported - Past Family History Mother Family Medical History: Cancer Additional Family Medical History / Comment(s): age 49 from breast cancer Father Family Medical History: Myocardial Infarction ([place]) Additional Family Medical History / Comment(s): in his 60's from mi Brother(s) Family Medical History: Diabetes Mellitus Additional Family Medical History / Comment(s): 2nd brother was paralized from accident later from complications Sister(s) Family Medical History: Diabetes Mellitus Medications and Allergies Home Medications Medication Instructions Recorded Confirmed Type Cholecalciferol [Vitamin D3 (25 50 mcg PO W/LUNCH 06/04/16 01/26/24 History Mcg = 1000 Iu)] Ferrous Sulfate [Iron (65 MG 325 mg PO W/SUPPER 06/04/16 06/16/16 History Elemental)] Fluticasone Nasal [place] [Flonase 1 spr EA NOSTRIL DAILY PRN 06/04/16 01/26/24 History Nasal [place]] Isosorbide Mononitrate ER [Imdur] 30 mg PO DAILY 06/04/16 01/26/24 History Metoprolol Tartrate [Lopressor] 25 mg PO BID 06/04/16 01/26/24 History guaiFENesin [Mucinex] 600 mg PO Q12HR PRN 06/04/16 01/26/24 History Albuterol Inhaler [Ventolin Hfa 1 - 2 puff INHALATION RT-QID PRN 01/26/24 01/26/24 History Inhaler] Apixaban [Eliquis] 5 mg PO BID 01/26/24 01/26/24 History Brimonidine Tartrate [Alphagan P 1 drop BOTH EYES BID 01/26/24 01/26/24 History 0.2% Ophth Soln] Budesonide [Pulmicort] 0.5 mg INHALATION RT-BID PRN 01/26/24 01/26/24 History Bumetanide [BUMEX] 2 mg PO W/SUPPER 01/26/24 01/26/24 History Bumetanide [BUMEX] 4 mg PO DAILY 01/26/24 01/26/24 History Cetirizine HCl [Zyrtec] 10 mg PO W/LUNCH 01/26/24 01/26/24 History Circulation And Vein Support 1 tab PO W/SUPPER 01/26/24 01/26/24 History Ibandronate Sodium [Boniva] 150 mg PO Q30D 01/26/24 01/26/24 History L.acidoph,Paracasei, B.lactis 1 cap PO DAILY 01/26/24 01/26/24 History [Probiotic] Latanoprost [Latanoprost 0.005%] 1 drop BOTH EYES HS 01/26/24 01/26/24 History Montelukast [Singulair] 10 mg PO HS 01/26/24 01/26/24 History Multivit-Min/Folic Acid/Biotin 133.3 mcg PO W/SUPPER 01/26/24 01/26/24 History [Hair, Skin and Nails Softgel] [place]-3(Unknown Dose) 1 cap PO W/LUNCH 01/26/24 01/26/24 History Pantoprazole [Protonix] 40 mg PO W/SUPPER 01/26/24 01/26/24 History Potassium Chloride ER [K-Dur 20] 40 meq PO BID 01/26/24 01/26/24 History Primidone 100 mg PO BID-W/MEALS 01/26/24 01/26/24 History Rosuvastatin [Crestor] 10 mg PO HS 01/26/24 01/26/24 History Spironolactone [Aldactone] 25 mg PO DAILY 01/26/24 01/26/24 History Vit C/E/Zn/Coppr/Lutein/Zeaxan 1 cap PO BID@1000,2100 01/26/24 01/26/24 History [Preservision Areds 2 Softgel] allopurinoL 100 mg PO DAILY 01/26/24 01/26/24 History metOLazone [Zaroxolyn] 2.5 mg PO Q2D 01/26/24 01/26/24 History rOPINIRole HCL [Requip] 1 mg PO BID@1700,2100 01/26/24 01/26/24 History traZODone HCL 100 mg PO HS 01/26/24 01/26/24 History Allergies Allergy/AdvReac Type Severity Reaction Status Date / Time clarithromycin Allergy Nausea & Verified 01/26/24 18:47 Vomiting clindamycin Allergy Dyspnea Verified 01/26/24 18:47 Latex, Natural Rubber Allergy SWELLING Verified 01/26/24 18:47 AROUND FACE levalbuterol Allergy Dyspnea Verified 01/26/24 18:47 Penicillins Allergy Swelling Verified 01/26/24 18:47 Physical Exam Vitals: Vital Signs Temp Pulse Resp BP Pulse Ox 01/27/24 06:10 72 14 127/62 95 01/27/24 03:31 73 16 125/51 96 01/27/24 01:06 69 18 109/48 96 01/26/24 23:26 78 H 115/73 93 L 01/26/24 22:35 70 18 135/68 97 01/26/24 19:15 75 18 126/80 99 01/26/24 18:44 98.0 F 66 16 124/73 98 Intake and Output 01/26/24 01/27/24 01/27/24 22:59 06:59 14:59 Other: Weight 96.615 kg Results 01/26/24 19:29 01/26/24 19:29 Cardiac Enzymes 01/26/24 01/26/24 01/26/24 Range/Units 19:29 22:26 23:34 AST 19 (14-36) U/L Troponin I <0.012 <0.012 (0.000-0.034) ng/mL 01/27/24 Range/Units 04:55 AST (14-36) U/L Troponin I <0.012 (0.000-0.034) ng/mL Coagulation 01/26/24 Range/Units 19:29 PT 10.6 (10.0-12.5) sec APTT 22.2 (22.0-30.0) sec CBC 01/26/24 Range/Units 19:29 WBC 6.0 (3.8-10.6) k/uL RBC 3.50 L (3.80-5.40) m/uL Hgb 12.7 (11.4-16.0) gm/dL Hct 37.5 (34.0-46.0) % Plt Count 194 (150-450) k/uL Comprehensive Metabolic Panel 01/26/24 Range/Units 19:29 Sodium 136 L (137-145) mmol/L Potassium 3.6 (3.5-5.1) mmol/L Chloride 93 L (98-107) mmol/L Carbon Dioxide 36 H (22-30) mmol/L BUN 58 H (7-17) mg/dL Creatinine 1.24 H (0.52-1.04) mg/dL Glucose 104 H (74-99) mg/dL Calcium 9.0 (8.4-10.2) mg/dL AST 19 (14-36) U/L ALT 14 (4-34) U/L Alkaline Phosphatase 59 (38-126) U/L Total Protein 6.5 (6.3-8.2) g/dL Albumin 3.7 (3.5-5.0) g/dL Current Medications Generic Name Dose Route Start Last Admin Trade Name Freq PRN Reason Stop Dose Admin Acetaminophen 650 mg 01/26/24 22:58 Acetaminophen Tab 325 Mg Tab PO Q6HR PRN Mild Pain or Fever > 100.5 Albuterol Sulfate 2.5 mg 01/27/24 05:22 Albuterol Nebulized 2.5 Mg/3 Ml INHALATION RT-QID PRN Shortness Of Breath Allopurinol 100 mg 01/27/24 09:00 Allopurinol 100 Mg Tab PO DAILY [facility] Apixaban 5 mg 01/27/24 09:00 Apixaban 5 Mg Tab PO BID [facility] Protocol Atorvastatin Calcium 20 mg 01/27/24 21:00 Atorvastatin 20 Mg Tab PO HS [facility] Brimonidine Tartrate 1 drops 01/27/24 09:00 Brimonidine Tartrate 0.2% Drops 5 Ml Btl BOTH EYES BID [facility] Budesonide 0.5 mg 01/27/24 05:22 Budesonide 0.5 Mg/2 Ml Nebu INHALATION RT-BID PRN Shortness Of Breath Cholecalciferol 50 mcg 01/27/24 12:30 Cholecalciferol 25 Mcg (1000 Iu) Tablet PO W/LUNCH [facility] Ferrous Sulfate 325 mg 01/27/24 17:30 Ferrous Sulfate 325 Mg Tab PO W/SUPPER [facility] Fluticasone Propionate 1 spray 01/27/24 05:22 Fluticasone 50mcg/Mio Nasal 16gm EA NOSTRIL DAILY PRN Allergy Symptoms Furosemide 60 mg 01/27/24 08:15 Furosemide 10 Mg/Ml 10 Ml Vial IV Q8HR TIA Guaifenesin 600 mg 01/27/24 05:22 Guaifenesin 600 Mg Tablet.Er PO Q12HR PRN CONGESTION/COUGH Ceftriaxone Sodium 1 gm/ 50 mls @ 100 mls/hr 01/27/24 09:00 Sodium Chloride IVPB Q24HR [facility] Protocol Isosorbide Mononitrate 30 mg 01/27/24 09:00 Isosorbide Mononitrate Er 30 Mg Tab.Er.24h PO DAILY [facility] Lactobacillus Acidophilus 1 each 01/27/24 09:00 Lactobacillus Acidophilus/Pect 1 Each Capsule PO DAILY [facility] Latanoprost 1 drops 01/27/24 21:00 Latanoprost 0.005% Ophth Drops 2.5 Ml Btl BOTH EYES HS [facility] Loratadine 10 mg 01/27/24 12:30 Loratadine 10 Mg Tab PO W/LUNCH [facility] Metolazone 2.5 mg 01/27/24 09:00 Metolazone 2.5 Mg Tab PO Q2D [facility] Metoprolol Tartrate 25 mg 01/27/24 09:00 Metoprolol Tartrate 25 Mg Tab PO BID [facility] Montelukast Sodium 10 mg 01/27/24 21:00 Montelukast 10 Mg Tab PO HS [facility] Morphine Sulfate 4 mg 01/26/24 22:58 01/27/24 05:11 Morphine Sulfate 4 Mg/Ml Syringe IV 4 mg Q4HR PRN Administration Severe Pain (Scale 7 to 10) Multivitamins/Minerals 1 each 01/27/24 10:00 Vit A,C & I-Emnwao-Adqrdjqi 1 Each Tab PO BID@1000,2100 [facility] Naloxone HCl 0.2 mg 01/26/24 22:58 Naloxone 0.4 Mg/Ml 1 Ml Vial IV Q2M PRN Opioid Reversal Pantoprazole Sodium 40 mg 01/27/24 17:30 Pantoprazole 40 Mg Tablet PO W/SUPPER [facility] Potassium Chloride 40 meq 01/27/24 09:00 Potassium Chloride Er 20 Meq Tab.Er PO BID [facility] Primidone 100 mg 01/27/24 07:30 01/27/24 06:32 Primidone 50 Mg Tab PO 100 mg BID-W/MEALS [facility] Administration Ropinirole HCl 1 mg 01/27/24 17:00 Ropinirole Hcl 1 Mg Tab PO BID@1700,2100 [facility] Spironolactone 25 mg 01/27/24 09:00 Spironolactone 25 Mg Tab PO DAILY [facility] Trazodone HCl 100 mg 01/27/24 21:00 Trazodone Hcl 100 Mg Tab PO HS [facility] Intake and Output 01/26/24 01/27/24 01/27/24 22:59 06:59 14:59 Other: Weight 96.615 kg 01/26/24 19:29 01/26/24 19:29
[2024-01-27] MEDS ORDERED: OMEGA PO SCH (12:30)
[2024-01-27] MEDS: CHOLECALCIFEROL 25 MCG (1000 IU) TABLET PO SCH (13:05)
[2024-01-27] MEDS: LORATADINE 10 MG TAB PO SCH (13:05)
[2024-01-27] MEDS: PANTOPRAZOLE 40 MG TABLET PO SCH (17:21)
[2024-01-27] MEDS: FERROUS SULFATE 325 MG TAB PO SCH (17:21)
[2024-01-27] MEDS ORDERED: [UNRECOGNIZED DRUG - OTHER] PO SCH (17:30)
[2024-01-27] MEDS ORDERED: NON FORMULARY DRUG (Multivit-Min/Folic Acid/Biotin [Hair, Skin And Nails Softgel] 133.3 MC PO SCH (17:30)
[2024-01-27] MEDS: MONTELUKAST 10 MG TAB PO SCH (20:57)
[2024-01-27] MEDS: ATORVASTATIN 20 MG TAB PO SCH (20:58)
[2024-01-27] MEDS: traZODone HCL 100 MG TAB PO SCH (20:58)
[2024-01-27] MEDS: LATANOPROST 0.005% OPHTH DROPS 2.5 ML BTL BOTH EYES SCH (22:27)
[2024-01-28 06:53] LABS: Basophils % (A) 1 %; Eosinophils # (A) 0.2 k/uL (0-0.7); Eosinophils % (A) 3 %; HCT 37.8 % (34.0-46.0); HGB 12.9 gm/dL (11.4-16.0); Lymphocytes # (A) 1.6 k/uL (1.0-4.8); Lymphocytes % (A) 23 %; MCH 36.5 pg (25.0-35.0); MCHC 34.1 g/dL (31.0-37.0); Macrocytosis Moderate; Mean Platelet Volume 7.8; Monocytes # (A) 0.6 k/uL (0-1.0); Monocytes % (A) 8 %; Neutrophils # (A) 4.4 k/uL (1.3-7.7); Neutrophils % (A) 64 %; Platelet Count 183 k/uL (150-450); RBC 3.54 m/uL (3.80-5.40); RDW 12.5 % (11.5-15.5); WBC 6.9 k/uL (3.8-10.6)
[2024-01-28 07:05] LABS: ALT 45 U/L (4-34); AST 43 U/L (14-36); African American GFR (CKD) 51 (>60 ml/min/1.73 sqM); Albumin 3.5 g/dL (3.5-5.0); Albumin/Globulin Ratio 1.3; Alkaline Phosphatase 72 U/L (38-126); Anion Gap 7 mmol/L; Blood Urea Nitrogen 40 mg/dL (7-17); Carbon Dioxide 35 mmol/L (22-30); Chloride 95 mmol/L (98-107); Globulin 2.8 g/dL; Glucose 102 mg/dL (74-99); Magnesium 2.1 mg/dL (1.6-2.3); Non-African American GFR(CKD) 44 (>60 ml/min/1.73 sqM); Potassium 3.5 mmol/L (3.5-5.1); Sodium 137 mmol/L (137-145); Total Bilirubin 0.9 mg/dL (0.2-1.3); Total Protein 6.3 g/dL (6.3-8.2)
[2024-01-28 07:12] LABS: NT-Pro-B-Type Natriuretic Pept 3120 pg/mL
[2024-01-28] MEDS: ACETAMINOPHEN TAB 325 MG TAB PO PRN (09:38)
--- NOTE | 2024-01-28 09:45 | P.PN ---
Subjective Progress Note Date: 01/28/24 Consult reason: chest pain, congestive heart failure History of present illness: This is an 88-year-old female patient of Dr. 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 We have been asked to evaluate the patient for chest pain and CHF. Patient gives history that she came into the hospital with lower extremity edema. She states she has been taking her water pills and the swelling has not gone down. She feels that she is not urinating very much even though she is taking all of her medications as directed. She states she is also following a low-sodium diet. She states she has developed some right lower extremity cellulitis and has been started on antibiotics. She states the symptoms have been going on for couple weeks and not improving. Patient has had a weight gain of 14 pounds. Patient also has left-sided pressure in her chest that started while she was in the emergency center. She states is better now but she occasionally feels a little heaviness. Patient is seen today in the emergency center waiting for a bed on the observation unit. Patient is status post 1 dose of IV Lasix 40 mg followed by 60 mg IV every 8 hours. EKG atrial fibrillation with ventricular rate of 76 Chest x-ray: Cardiomegaly and mild pulmonary vascular congestion. Correlate for heart failure. WBC 6, hemoglobin 12.7. Sodium 136, potassium 3.6, BUN 58, creatinine 1.24. Troponin negative x 3. proBNP 3050. Urinalysis reveals leukoesterase large, WBCs 16. Home cardiac medications: Eliquis 5 mg twice daily, Bumex 4 mg in the morning and 2 mg with supper, Imdur 30 mg daily, Zaroxolyn 2.5 mg every 2 days, Lopressor 25 mg twice daily, K. Dur 40 mEq twice daily, Crestor 10 mg at bedtime, Aldactone 25 mg daily. Echocardiogram performed in the office on 01/13/2024 reveals EF 55%. Mild concentric left ventricular hypertrophy. Mild aortic regurgitation. Moderate to severe mitral regurgitation. Moderate tricuspid regurgitation. PASP 48 mmHg. 01/27 Patient is seen today in follow-up on the observation unit. She has been maintained on IV Lasix 60 mg every 8 hours. Patient has a negative fluid balance. She states her legs feel jumpy. Her breathing is a lot better and she has less lower extremity edema. Recommended the patient wear compression socks which she states she normally wears diabetic socks. Blood pressure 131/67, heart rate 82, pulse ox 96% on room air. Repeat blood work reveals hemoglobin 12.9. BUN 40, creatinine 1.12. proBNP 3120. Physical examination: Gen: This is an 88-year-old female in no acute distress VS: reviewed HEENT: Head is atraumatic, normocephalic. Pupils equal, round. Sclerae is anicteric. LUNGS: Few expiratory wheeze. No intercostal retractions. HEART: Irregular rate and rhythm. Systolic murmur at the right and left upper sternal border. EXTREMITIES: Minimal lower extremity edema. No calf tenderness. NEUROLOGICAL: Patient is awake, alert and oriented x3. Assessment: Acute on chronic diastolic heart failure Valvular heart disease with mild aortic regurgitation, moderate to severe mitral regurgitation Pulmonary hypertension Permanent atrial fibrillation Hypertension Dyslipidemia Chronic kidney disease Possible urinary tract infection Plan: Continue current cardiac medications Monitor SORAYA, daily weights, electrolytes and renal function No need to repeat echocardiogram as this was done in the office on 01/13/2024 Plan will be for outpatient CONRADO and catheterization at a later date to further evaluate valvular heart disease If patient is feeling well this afternoon, IV Lasix may be transitioned to her home dose of oral Bumex and patient can be discharged home and follow-up with Dr. Spencer in the office in 1 to 2 weeks. Nurse practitioner note has been reviewed, I agree with documented findings and plan of care. Patient was seen and examined. Objective - Vital Signs Vital signs: Vital Signs Temp 98.6 F 01/28/24 07:00 Pulse 82 01/28/24 07:00 Resp 20 01/28/24 07:00 BP 131/67 01/28/24 07:00 Pulse Ox 96 01/28/24 07:00 FiO2 Intake & Output 01/27/24 01/28/24 01/28/24 18:59 06:59 18:59 Output Total 1400 1100 Balance -1400 -1100 Output: Urine 1400 1100 Other: Voiding Method Diaper Diaper Incontinent Incontinent # Bowel Movements 0 - Labs CBC & Chem 7: 01/28/24 06:30 01/28/24 06:30 Labs: Abnormal Lab Results - Last 24 Hours (Table) 01/28/24 01/28/24 Range/Units 06:30 06:30 RBC 3.54 L (3.80-5.40) m/uL MCV 107.0 H (80.0-100.0) fL MCH 36.5 H (25.0-35.0) pg Chloride 95 L (98-107) mmol/L Carbon Dioxide 35 H (22-30) mmol/L BUN 40 H (7-17) mg/dL Creatinine 1.12 H (0.52-1.04) mg/dL Glucose 102 H (74-99) mg/dL AST 43 H (14-36) U/L ALT 45 H (4-34) U/L
[2024-01-29] MEDS: BUDESONIDE 0.5 MG/2 ML NEBU INHALATION PRN (09:40)
[2024-01-29] MEDS: ALBUTEROL NEBULIZED 2.5 MG/3 ML INHALATION PRN (09:40)
--- NOTE | 2024-01-29 12:48 | P.PN ---
Subjective Progress Note Date: 01/29/24 This is an 88-year-old female patient of Dr. 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 We have been asked to evaluate the patient for chest pain and CHF. Patient gives history that she came into the hospital with lower extremity edema. She states she has been taking her water pills and the swelling has not gone down. She feels that she is not urinating very much even though she is taking all of her medications as directed. She states she is also following a low-sodium diet. She states she has developed some right lower extremity cellulitis and has been started on antibiotics. She states the symptoms have been going on for couple weeks and not improving. Patient has had a weight gain of 14 pounds. Patient also has left-sided pressure in her chest that started while she was in the emergency center. She remains on IV Lasix 60 mg every 8 hours. She is unsure if her breathing is better as she has not been very active. She has been up to the chair yesterday without much difficulty in breathing. Most of her breathing issues at home were mostly with bending over and getting dressed. Vital signs have been stable. She had an episode earlier this morning of left-sided chest pressure similar to what she had yesterday and prior to admission. Discomfort occurred at rest lasted about 15 minutes and resolved on its own gradually. She did feel some shortness of breath at the time. Objective - Vital Signs Vital signs: Vital Signs Temp 98.6 F 01/29/24 07:00 Pulse 80 01/29/24 09:48 Resp 16 01/29/24 07:00 BP 140/88 01/29/24 07:00 Pulse Ox 96 01/29/24 07:00 FiO2 Intake & Output 01/28/24 01/29/24 01/29/24 18:59 06:59 18:59 Output Total 1000 700 Balance -1000 -700 Output: Urine 1000 700 Other: Voiding Method Diaper Diaper Incontinent Incontinent External Catheter External Catheter # Voids 250 # Bowel Movements 0 - Exam Gen: This is an 88-year-old female in no acute distress VS: reviewed HEENT: Head is atraumatic, normocephalic. Pupils equal, round. Sclerae is anicteric. LUNGS: Few expiratory wheeze. No intercostal retractions. HEART: Irregular rate and rhythm. Systolic murmur at the right and left upper sternal border. EXTREMITIES: Minimal lower extremity edema. No calf tenderness. NEUROLOGICAL: Patient is awake, alert and oriented x3. - Labs CBC & Chem 7: 01/28/24 06:30 01/28/24 06:30 Assessment and Plan Assessment: Acute on chronic diastolic heart failure Valvular heart disease with mild aortic regurgitation, moderate to severe mitral regurgitation Pulmonary hypertension Permanent atrial fibrillation Hypertension Dyslipidemia Chronic kidney disease Possible urinary tract infection Plan: From cardiology's perspective medications were reviewed and we will continue the same. Will add Farxiga 10 mg p.o. daily. Continue to monitor renal function and electrolytes. Depending on patient's clinical course further recommendations will be made. SERVICE CENTER TECHNICIAN note has been reviewed, I agree with a documented findings and plan of care. Patient was seen and examined.
[2024-01-29] MEDS: DAPAGLIFLOZIN PROPANEDIOL 10 MG TABLET PO SCH (13:38)
--- NOTE | 2024-01-29 13:57 | P.DS ---
Providers Date of admission: 01/26/24 22:58 Expected date of discharge: 01/29/24 Attending physician: Bharath Hermosillo Consults: 01/26/24 22:58 Consult Physician Routine Consulting Provider: Yayo Spencer Consult Reason/Comments: chest pain, chf Do you want consulting provider notified?: Yes, Notify in am Primary care physician: Bharath Hermosillo [facility] Course: Discharge diagnoses; Significant fluid overload and dyspnea Acute on chronic diastolic CHF Continue home regimen of diuretics, added Farxiga _Atherosclerotic heart disease: Isosorbide, metoprolol ,ARB. _A-fib with RVR: Continue Lopressor, Eliquis _Asthma/COPD: Has been on Ventolin and Pulmicort has been doing well with it and switch patient to nebulizer if needed. _Acute kidney disease with chronic kidney failure, continue diuretics with watch kidney function closely as well. _ UTI: Completed course of Rocephin _Chronic iron deficiency anemia: Still on iron supplement on regular basis. _Chronic hypokalemia: Resolved _Essential tremor with no sign of parkinsonism: Has been on primidone total of 50 mg twice a day. _Restless leg syndrome: Continue Requip 1 mg twice a day. _Hyperlipidemia: Has been on Crestor 10 mg a day. _Severe GERD: Patient remain on pantoprazole 40 mg daily. _Osteoporosis: Remain on Boniva 150 mg monthly along with calcium and vitamin D. Hospital course; 88-year-old one of our office patient with active medical history of hypertension, hyperlipidemia, A-fib, anasarca, GERD, essential tremor, mild systolic congestive heart failure, osteoporosis, chronic kidney disease, chronic anemia, who has a history of asthma as well and has been having significant worsening edema for the last few years with adjustment of her diuretics repeatedly to gain 12 pounds last 2 weeks according to family patient lives in [facility] and take her medication regularly. Has been complaining of worsening shortness of breath and worsening edema along with slight discomfort in the legs bilaterally. Developing and to have PND and orthopnea not been able to lay down flat and tiredness fatigue with minimal exertion. Her Bumex is up to total of 4 mg in the morning 2 mg in the evening still on spironolactone and Zaroxolyn despite the change in medication less than 4 weeks ago patient edema become worse. Patient was seen at the emergency department at [facility] Found to have acute kidney injury with BUN 58 creatinine 1.24 with sodium of 136, her BNP was 3050 troponin was negative normal liver enzymes UA was positive as well patient has not been having any symptoms. EKG showed atrial fibrillation with pulse well- controlled at 76, chest x-ray showed cardiomegaly and mild pulmonary vascular congestion. Do not remember when patient had her echocardiogram last time she was diagnosed early with congestive heart failure and diastolic dysfunction along with her anasarca and lymphedema and the increase in medication and have been gradually she is known to have history of A-fib with mild atherosclerotic heart disease with no anginal signs and symptoms and has not had any heart cath or any intervention. Patient be hospitalized on IV diuretics will adjust her medication consult cardiology echocardiogram will be done repeat CK troponin x 3. 5/. Patient seen and examined. Patient was evaluated by cardiology, they recommended discharging patient on her home regimen of diuretics. Patient was discharged on Farxiga per cardiology recommendations. PHYSICAL EXAMINATION: GENERAL: The patient is alert and oriented x3, not in any acute distress. Well developed, well nourished. HEENT: Pupils are round and equally reacting to light. EOMI. No scleral icterus. No conjunctival pallor. Normocephalic, atraumatic. No pharyngeal erythema. No thyromegaly. CARDIOVASCULAR: S1 and S2 present. No murmurs, rubs, or gallops. PULMONARY: Chest is clear to auscultation, no wheezing or crackles. ABDOMEN: Soft, nontender, nondistended, normoactive bowel sounds. No palpable organomegaly. MUSCULOSKELETAL: No joint swelling or deformity. EXTREMITIES: No cyanosis, clubbing, or pedal edema. NEUROLOGICAL: Gross neurological examination did not reveal any focal deficits. SKIN: No rashes. Dictation was produced using [employer] dictation software. please excuse any grammatical, word or spelling errors. Patient Condition at Discharge: Stable Plan - Discharge Summary New Discharge Prescriptions: New Dapagliflozin Propanediol [Farxiga] 10 mg PO DAILY 30 Days #30 tab Continue Cholecalciferol [Vitamin D3 (25 Mcg = 1000 Iu)] 50 mcg PO W/LUNCH Ferrous Sulfate [Iron (65 MG Elemental)] 325 mg PO W/SUPPER Fluticasone Nasal [place] [Flonase Nasal [place]] 1 spr EA NOSTRIL DAILY PRN PRN Reason: Allergy Symptoms guaiFENesin [Mucinex] 600 mg PO Q12HR PRN PRN Reason: CONGESTION/COUGH Isosorbide Mononitrate ER [Imdur] 30 mg PO DAILY Metoprolol Tartrate [Lopressor] 25 mg PO BID Albuterol Inhaler [Ventolin Hfa Inhaler] 1 - 2 puff INHALATION RT-QID PRN PRN Reason: Shortness Of Breath Montelukast [Singulair] 10 mg PO HS Circulation And Vein Support 1 tab PO W/SUPPER rOPINIRole HCL [Requip] 1 mg PO BID@1700,2100 Primidone 100 mg PO BID-W/MEALS Pantoprazole [Protonix] 40 mg PO W/SUPPER Vit C/E/Zn/Coppr/Lutein/Zeaxan [Preservision Areds 2 Softgel] 1 cap PO BID@1000,2100 metOLazone [Zaroxolyn] 2.5 mg PO Q2D Bumetanide [BUMEX] 2 mg PO W/SUPPER Latanoprost [Latanoprost 0.005%] 1 drop BOTH EYES HS Ibandronate Sodium [Boniva] 150 mg PO Q30D traZODone HCL 100 mg PO HS Budesonide [Pulmicort] 0.5 mg INHALATION RT-BID PRN PRN Reason: Shortness Of Breath Rosuvastatin [Crestor] 10 mg PO HS Multivit-Min/Folic Acid/Biotin [Hair, Skin and Nails Softgel] 133.3 mcg PO W/SUPPER Comstock-3(Unknown Dose) 1 cap PO W/LUNCH Cetirizine HCl [Zyrtec] 10 mg PO W/LUNCH L.acidoph,Paracasei, B.lactis [Probiotic] 1 cap PO DAILY Spironolactone [Aldactone] 25 mg PO DAILY Bumetanide [BUMEX] 4 mg PO DAILY Apixaban [Eliquis] 5 mg PO BID allopurinoL 100 mg PO DAILY Potassium Chloride ER [K-Dur 20] 40 meq PO BID Brimonidine Tartrate [Alphagan P 0.2% Ophth Soln] 1 drop BOTH EYES BID Discharge Medication List Cholecalciferol [Vitamin D3 (25 Mcg = 1000 Iu)] 50 mcg PO W/LUNCH 06/04/16 [History] Ferrous Sulfate [Iron (65 MG Elemental)] 325 mg PO W/SUPPER 06/04/16 [History] Fluticasone Nasal [place] [Flonase Nasal [place]] 1 spr EA NOSTRIL DAILY PRN 06/04/16 [History] Isosorbide Mononitrate ER [Imdur] 30 mg PO DAILY 06/04/16 [History] Metoprolol Tartrate [Lopressor] 25 mg PO BID 06/04/16 [History] guaiFENesin [Mucinex] 600 mg PO Q12HR PRN 06/04/16 [History] Albuterol Inhaler [Ventolin Hfa Inhaler] 1 - 2 puff INHALATION RT-QID PRN 01/26/24 [History] Apixaban [Eliquis] 5 mg PO BID 01/26/24 [History] Brimonidine Tartrate [Alphagan P 0.2% Ophth Soln] 1 drop BOTH EYES BID 01/26/24 [History] Budesonide [Pulmicort] 0.5 mg INHALATION RT-BID PRN 01/26/24 [History] Bumetanide [BUMEX] 2 mg PO W/SUPPER 01/26/24 [History] Bumetanide [BUMEX] 4 mg PO DAILY 01/26/24 [History] Cetirizine HCl [Zyrtec] 10 mg PO W/LUNCH 01/26/24 [History] Circulation And Vein Support 1 tab PO W/SUPPER 01/26/24 [History] Ibandronate Sodium [Boniva] 150 mg PO Q30D 01/26/24 [History] L.acidoph,Paracasei, B.lactis [Probiotic] 1 cap PO DAILY 01/26/24 [History] Latanoprost [Latanoprost 0.005%] 1 drop BOTH EYES HS 01/26/24 [History] Montelukast [Singulair] 10 mg PO HS 01/26/24 [History] Multivit-Min/Folic Acid/Biotin [Hair, Skin and Nails Softgel] 133.3 mcg PO W/SUPPER 01/26/24 [History] [place]-3(Unknown Dose) 1 cap PO W/LUNCH 01/26/24 [History] Pantoprazole [Protonix] 40 mg PO W/SUPPER 01/26/24 [History] Potassium Chloride ER [K-Dur 20] 40 meq PO BID 01/26/24 [History] Primidone 100 mg PO BID-W/MEALS 01/26/24 [History] Rosuvastatin [Crestor] 10 mg PO HS 01/26/24 [History] Spironolactone [Aldactone] 25 mg PO DAILY 01/26/24 [History] Vit C/E/Zn/Coppr/Lutein/Zeaxan [Preservision Areds 2 Softgel] 1 cap PO BID@1000,2100 01/26/24 [History] allopurinoL 100 mg PO DAILY 01/26/24 [History] metOLazone [Zaroxolyn] 2.5 mg PO Q2D 01/26/24 [History] rOPINIRole HCL [Requip] 1 mg PO BID@1700,2100 01/26/24 [History] traZODone HCL 100 mg PO HS 01/26/24 [History] Dapagliflozin Propanediol [Farxiga] 10 mg PO DAILY 30 Days #30 tab 01/29/24 [Rx] Follow up Appointment(s)/Referral(s): Bharath Hermosillo MD [Primary Care Provider] - 1-2 days Yayo Spencer MD [STAFF PHYSICIAN] - 1 Week Discharge Disposition: HOME SELF-CARE
[2024-01-29 15:07] VITALS: BP 101/65; PULSE 78; RESP 15; TEMP 97.6
== END 2024-01-29 16:35 | disposition home or self-care (01) ==
LOC: EC 18:39 → 6NMEDSUR 22:58
PROVIDERS: ADMIT Internal Medicine Geriatric Medicine; ATTEND Internal Medicine Geriatric Medicine
DX: I13.0 Hypertensive heart and chronic kidney disease with heart failure and stage 1 through stage 4 chronic kidney disease, or unspecified chronic kidney disease (principal); I50.43 Acute on chronic combined systolic (congestive) and diastolic (congestive) heart failure; N17.9 Acute kidney failure, unspecified; N18.9 Chronic kidney disease, unspecified; N39.0 Urinary tract infection, site not specified; I48.91 Unspecified atrial fibrillation; G25.81 Restless legs syndrome; E78.5 Hyperlipidemia, unspecified; K21.9 Gastro-esophageal reflux disease without esophagitis; M81.0 Age-related osteoporosis without current pathological fracture; G25.0 Essential tremor; E87.6 Hypokalemia; J45.909 Unspecified asthma, uncomplicated
CPT/HCPCS: 96365 ×2; 96366 ×2; 96367 ×2; 96376; 99285; 51798; 36415; 94640; 93005; 97162; 83880 ×2; 80053 ×2; 83735; 84484 ×2; 85025 ×2; 85610; 85730; 81001; 71046; G0378 ×4; J2270 ×2; J1940 ×4; J0696 ×3

== ENCOUNTER 2024-10-10 17:57 | Inpatient (IN) | payer MEDICARE ==
--- NOTE | 2024-10-10 18:29 | ED ---
General Adult HPI - General Chief complaint: Extremity Problem,Nontraumatic Stated complaint: SOB/HAS A COLD Time Seen by Provider: 10/10/24 18:03 Source: patient, EMS, RN notes reviewed, old records reviewed Mode of arrival: EMS Limitations: no limitations - History of Present Illness Initial comments: 88-year-old female presenting for evaluation of cough, dyspnea, lower extremity swelling. Patient developed a productive cough with fever and chills approximately 1 week ago. She states she had a negative COVID test at that time. Her symptoms have progressed and she has had poor appetite with associated nausea and has been unable to take her daily medication which does include water pill. She is developed worsening bilateral lower extremity edema. She was seen by her primary care provider yesterday prescribed antibiotics, steroids, Tessalon Perles. - Related Data Home Medications Medication Instructions Recorded Confirmed Cholecalciferol [Vitamin D3 (25 50 mcg PO W/LUNCH 06/04/16 01/26/24 Mcg = 1000 Iu)] Ferrous Sulfate [Iron (65 MG 325 mg PO W/SUPPER 06/04/16 06/16/16 Elemental)] Fluticasone Nasal [place] [Flonase 1 spr EA NOSTRIL DAILY PRN 06/04/16 01/26/24 Nasal [place]] Isosorbide Mononitrate ER [Imdur] 30 mg PO DAILY 06/04/16 01/26/24 Metoprolol Tartrate [Lopressor] 25 mg PO BID 06/04/16 01/26/24 guaiFENesin [Mucinex] 600 mg PO Q12HR PRN 06/04/16 01/26/24 Albuterol Inhaler [Ventolin Hfa 1 - 2 puff INHALATION RT-QID PRN 01/26/24 01/26/24 Inhaler] Apixaban [Eliquis] 5 mg PO BID 01/26/24 01/26/24 Brimonidine Tartrate [Alphagan P 1 drop BOTH EYES BID 01/26/24 01/26/24 0.2% Ophth Soln] Budesonide [Pulmicort] 0.5 mg INHALATION RT-BID PRN 01/26/24 01/26/24 Bumetanide [BUMEX] 2 mg PO W/SUPPER 01/26/24 01/26/24 Bumetanide [BUMEX] 4 mg PO DAILY 01/26/24 01/26/24 Cetirizine HCl [Zyrtec] 10 mg PO W/LUNCH 01/26/24 01/26/24 Circulation And Vein Support 1 tab PO W/SUPPER 01/26/24 01/26/24 Ibandronate Sodium [Boniva] 150 mg PO Q30D 01/26/24 01/26/24 L.acidoph,Paracasei, B.lactis 1 cap PO DAILY 01/26/24 01/26/24 [Probiotic] Latanoprost [Latanoprost 0.005%] 1 drop BOTH EYES HS 01/26/24 01/26/24 Montelukast [Singulair] 10 mg PO HS 01/26/24 01/26/24 Multivit-Min/Folic Acid/Biotin 133.3 mcg PO W/SUPPER 01/26/24 01/26/24 [Hair, Skin and Nails Softgel] Bivalve-3(Unknown Dose) 1 cap PO W/LUNCH 01/26/24 01/26/24 Pantoprazole [Protonix] 40 mg PO W/SUPPER 01/26/24 01/26/24 Potassium Chloride ER [K-Dur 20] 40 meq PO BID 01/26/24 01/26/24 Primidone 100 mg PO BID-W/MEALS 01/26/24 01/26/24 Rosuvastatin [Crestor] 10 mg PO HS 01/26/24 01/26/24 Spironolactone [Aldactone] 25 mg PO DAILY 01/26/24 01/26/24 Vit C/E/Zn/Coppr/Lutein/Zeaxan 1 cap PO BID@1000,2100 01/26/24 01/26/24 [Preservision Areds 2 Softgel] allopurinoL 100 mg PO DAILY 01/26/24 01/26/24 metOLazone [Zaroxolyn] 2.5 mg PO Q2D 01/26/24 01/26/24 rOPINIRole HCL [Requip] 1 mg PO BID@1700,2100 01/26/24 01/26/24 traZODone HCL 100 mg PO HS 01/26/24 01/26/24 Previous Rx's Medication Instructions Recorded Dapagliflozin Propanediol [Farxiga] 10 mg PO DAILY 30 Days #30 tab 01/29/24 Allergies Allergy/AdvReac Type Severity Reaction Status Date / Time clarithromycin Allergy Nausea & Verified 10/10/24 18:12 Vomiting clindamycin Allergy Dyspnea Verified 10/10/24 18:12 Latex, Natural Rubber Allergy SWELLING Verified 10/10/24 18:12 AROUND FACE levalbuterol Allergy Dyspnea Verified 10/10/24 18:12 Penicillins Allergy Swelling Verified 10/10/24 18:12 Review of Systems ROS Statement: Those systems with pertinent positive or pertinent negative responses have been documented in the HPI. ROS Other: All systems not noted in ROS Statement are negative. Past Medical History Past Medical History: Eye Disorder, GERD/Reflux, Hyperlipidemia, Hypertension, Osteoarthritis (OA) Additional Past Medical History / Comment(s): STAGE ONE GLAUCOMA History of Any Multi-Drug Resistant Organisms: None Reported Additional Past Surgical History / Comment(s): LT TKA X 2. ORIF LT LEG. COLONOSCOPY. HERNIA X 2 Additional Past Anesthesia/Blood Transfusion Reaction / Comment(s): OVER MEDICATED AFTER LT TKA. UTI. UNCONTROLLED PAIN BEFORE AND AFTER SURGERY Past Psychological History: No Psychological Hx Reported Smoking Status: Never smoker Past Alcohol Use History: None Reported Past Drug Use History: None Reported - Past Family History Mother Family Medical History: Cancer Additional Family Medical History / Comment(s): age 49 from breast cancer Father Family Medical History: Myocardial Infarction ([place]) Additional Family Medical History / Comment(s): in his 60's from [place] Brother(s) Family Medical History: Diabetes Mellitus Additional Family Medical History / Comment(s): 2nd brother was paralized from accident later from complications Sister(s) Family Medical History: Diabetes Mellitus General Exam Limitations: no limitations General appearance: alert, in no apparent distress Head exam: Present: atraumatic, normocephalic Eye exam: Present: normal appearance, PERRL ENT exam: Present: normal exam Neck exam: Present: normal inspection. Absent: tenderness, meningismus Respiratory exam: Present: rhonchi, decreased breath sounds. Absent: respiratory distress Cardiovascular Exam: Present: regular rate, normal rhythm GI/Abdominal exam: Present: soft. Absent: distended, tenderness Extremities exam: Present: pedal edema Neurological exam: Present: alert, oriented X3, CN II-XII intact. Absent: motor sensory deficit Psychiatric exam: Present: normal affect, normal mood Skin exam: Present: warm, dry, intact. Absent: cyanosis, diaphoretic Course Vital Signs 10/10/24 10/10/24 18:06 20:26 Temperature 98.8 F Pulse Rate 90 82 Respiratory 18 18 Rate Blood Pressure 109/42 113/60 O2 Sat by Pulse 95 95 Oximetry Medical Decision Making - Medical Decision Making Was pt. sent in by a medical professional or institution (, KENNETH, IRON WORKER APPRENTICE, urgent care, hospital, or half-way...) When possible be specific @ -No Did you speak to anyone other than the patient for history (EMS, parent, family, police, friend...)? What history was obtained from this source @ -No Did you review nursing and triage notes (agree or disagree)? Why? @ -I reviewed and agree with nursing and triage notes Were old charts reviewed (outside hosp., previous admission, EMS record, old EKG, old radiological studies, urgent care reports/EKG's, half-way records)? Report findings @ -No old charts were reviewed Differential Diagnosis (chest pain, altered mental status, abdominal pain women, abdominal pain men, vaginal bleeding, weakness, fever, dyspnea, syncope, headache, dizziness, GI bleed, back pain, seizure, CVA, palpatations, mental health, musculoskeletal)? @ -Not applicable EKG interpreted by me (3pts min.). @ -EKG: Atrial fibrillation no ST segment elevation, rate of 86, AR interval 130, QRS duration 370 X-rays interpreted by me (1pt min.). @Chest x-ray showing bilateral lower lobe infiltrate suspect right-sided pleural effusion. CT interpreted by me (1pt min.). @ -None done U/S interpreted by me (1pt. min.). @ -None done What testing was considered but not performed or refused? (CT, X-rays, U/S, labs)? Why? @ -None What meds were considered but not given or refused? Why? @ -None Did you discuss the management of the patient with other professionals (professionals i.e. , KENNETH, IRON WORKER APPRENTICE, lab, RT, psych nurse, adoption social worker, carcass trimmer, teacher, ship's officer, block and case maker)? Give summary @ -Bernadette durant for [facility] Was smoking cessation discussed for >3mins.? @ -No Was critical care preformed (if so, how long)? @ -No Were there social determinants of health that impacted care today? How? (Homelessness, low income, unemployed, alcoholism, drug addiction, transportation, low edu. Level, literacy, decrease access to med. care, residential, rehab)? @ -No Was there de-escalation of care discussed even if they declined (Discuss DNR or withdrawal of care, Hospice)? DNR status @ -No What co-morbidities impacted this encounter? (DM, HTN, Smoking, COPD, CAD, Cancer, CVA, ARF, Chemo, Hep., AIDS, mental health diagnosis, sleep apnea, morbid obesity)? @Congestive heart failure Was patient admitted / discharged? Hospital course, mention meds given and route, prescriptions, significant lab abnormalities, going to OR and other pertinent info. @ -[88-year-old female with productive cough, not feeling well for about 5 days. Patient was started on oral antibiotics. She has been unable to take her medications including her diuretics and has had worsening dyspnea as well as bilateral lower extremity edema. Workup reveals chest x-ray showing concern for bilateral lower lobe pneumonia. She has an elevated white blood cell count of 14.5. Her potassium is 2.5 requiring both IV and oral replacement. Her BNP is also significantly elevated which I believe is due to not taking her diuretics over the past 5 days. Her potassium will be replaced and then she will be started back on IV Lasix. She is given IV antibiotics to cover pneumonia in the emergency department. Admitted to [facility]. Lactic acid is normal Undiagnosed new problem with uncertain prognosis? @ -No Drug Therapy requiring intensive monitoring for toxicity (Heparin, Nitro, Ins ulin, Cardizem)? @ -No Were any procedures done? @ -No Diagnosis/symptom? @Pneumonia, fluid overload, failed outpatient treatment Acute, or Chronic, or Acute on Chronic? @ -Acute Uncomplicated (without systemic symptoms) or Complicated (systemic symptoms)? @ -Default Side effects of treatment? @ -No Exacerbation, Progression, or Severe Exacerbation? @ -No Poses a threat to life or bodily function? How? (Chest pain, [place], [place], pneumonia, PE, COPD, DKA, ARF, appy, cholecystitis, CVA, Diverticulitis, Homicidal, Suicidal, threat to staff... and all critical care pts) @ -Yes, sepsis, CHF - Lab Data Result diagrams: 10/10/24 19:20 10/10/24 19:20 Lab Results 10/10/24 10/10/24 10/10/24 Range/Units 18:43 19:20 19:20 WBC 14.5 H (3.8-10.6) k/uL RBC 3.49 L (3.80-5.40) m/uL Hgb 12.7 (11.4-16.0) gm/dL Hct 36.7 (34.0-46.0) % MCV 105.3 H (80.0-100.0) fL MCH 36.3 H (25.0-35.0) pg MCHC 34.5 (31.0-37.0) g/dL RDW 12.5 (11.5-15.5) % Plt Count 218 (150-450) k/uL MPV 8.0 Neutrophils % 78 % Lymphocytes % 11 % Monocytes % 8 % Eosinophils % 1 % Basophils % 0 % Neutrophils # 11.4 H (1.3-7.7) k/uL Lymphocytes # 1.6 (1.0-4.8) k/uL Monocytes # 1.1 H (0-1.0) k/uL Eosinophils # 0.1 (0-0.7) k/uL Basophils # 0.0 (0-0.2) k/uL Macrocytosis Slight PT 11.1 (10.0-12.5) sec INR 1.0 (<1.2) APTT 30.0 (22.0-30.0) sec Sodium (137-145) mmol/L Potassium (3.5-5.1) mmol/L Chloride (98-107) mmol/L Carbon Dioxide (22-30) mmol/L Anion Gap mmol/L BUN (7-17) mg/dL Creatinine (0.52-1.04) mg/dL Est GFR (CKD-EPI)AfAm (>60 ml/min/1.73 sqM) Est GFR (CKD-EPI)NonAf (>60 ml/min/1.73 sqM) Glucose (74-99) mg/dL Plasma Lactic Acid Gualberto (0.7-2.0) mmol/L Calcium (8.4-10.2) mg/dL Total Bilirubin (0.2-1.3) mg/dL AST (14-36) U/L ALT (4-34) U/L Alkaline Phosphatase (38-126) U/L Troponin I (0.000-0.034) ng/mL NT-Pro-B Natriuret Pep pg/mL Total Protein (6.3-8.2) g/dL Albumin (3.5-5.0) g/dL Influenza Type A (PCR) Not Detected (Not Detectd) Influenza Type B (PCR) Not Detected (Not Detectd) RSV (PCR) Not Detected (Not Detectd) SARS-CoV-2 (PCR) Not Detected (Not Detectd) 10/10/24 10/10/24 10/10/24 Range/Units 19:20 19:20 19:20 WBC (3.8-10.6) k/uL RBC (3.80-5.40) m/uL Hgb (11.4-16.0) gm/dL Hct (34.0-46.0) % MCV (80.0-100.0) fL MCH (25.0-35.0) pg MCHC (31.0-37.0) g/dL RDW (11.5-15.5) % Plt Count (150-450) k/uL MPV Neutrophils % % Lymphocytes % % Monocytes % % Eosinophils % % Basophils % % Neutrophils # (1.3-7.7) k/uL Lymphocytes # (1.0-4.8) k/uL Monocytes # (0-1.0) k/uL Eosinophils # (0-0.7) k/uL Basophils # (0-0.2) k/uL Macrocytosis PT (10.0-12.5) sec INR (<1.2) APTT (22.0-30.0) sec Sodium 132 L (137-145) mmol/L Potassium 2.5 L* (3.5-5.1) mmol/L Chloride 87 L (98-107) mmol/L Carbon Dioxide 36 H (22-30) mmol/L Anion Gap 9 mmol/L BUN 42 H (7-17) mg/dL Creatinine 1.06 H (0.52-1.04) mg/dL Est GFR (CKD-EPI)AfAm 54 (>60 ml/min/1.73 sqM) Est GFR (CKD-EPI)NonAf 47 (>60 ml/min/1.73 sqM) Glucose 101 H (74-99) mg/dL Plasma Lactic Acid Gualberto 1.3 (0.7-2.0) mmol/L Calcium 8.5 (8.4-10.2) mg/dL Total Bilirubin 0.9 (0.2-1.3) mg/dL AST 48 H (14-36) U/L ALT 48 H (4-34) U/L Alkaline Phosphatase 99 (38-126) U/L Troponin I 0.027 (0.000-0.034) ng/mL NT-Pro-B Natriuret Pep 6790 pg/mL Total Protein 6.3 (6.3-8.2) g/dL Albumin 3.4 L (3.5-5.0) g/dL Influenza Type A (PCR) (Not Detectd) Influenza Type B (PCR) (Not Detectd) RSV (PCR) (Not Detectd) SARS-CoV-2 (PCR) (Not Detectd) Disposition Clinical Impression: Community acquired pneumonia, CHF exacerbation Disposition: ADMITTED IP TO THIS HOSP Condition: Stable Is patient prescribed a controlled substance at d/c from ED?: No Referrals: Bharath Hermosillo MD [Primary Care Provider] - 1-2 days Time of Disposition: 21:35
[2024-10-10 19:28] LABS: Basophils % (A) 0 %; Eosinophils # (A) 0.1 k/uL (0-0.7); Eosinophils % (A) 1 %; HCT 36.7 % (34.0-46.0); HGB 12.7 gm/dL (11.4-16.0); Lymphocytes # (A) 1.6 k/uL (1.0-4.8); Lymphocytes % (A) 11 %; MCH 36.3 pg (25.0-35.0); MCHC 34.5 g/dL (31.0-37.0); MCV 105.3 fL (80.0-100.0); Macrocytosis Slight; Monocytes # (A) 1.1 k/uL (0-1.0); Monocytes % (A) 8 %; Neutrophils # (A) 11.4 k/uL (1.3-7.7); Neutrophils % (A) 78 %; Platelet Count 218 k/uL (150-450); RBC 3.49 m/uL (3.80-5.40); RDW 12.5 % (11.5-15.5); WBC 14.5 k/uL (3.8-10.6)
[2024-10-10 19:41] LABS: Influenza A Not Detected (Not Detectd); Influenza B Not Detected (Not Detectd); RSV Not Detected (Not Detectd)
--- NOTE | 2024-10-10 19:41 | XR ---
EXAMINATION TYPE: XR chest 2V DATE OF EXAM: 10/10/2024 7:11 PM COMPARISON: None. CLINICAL INDICATION: Female, 88 years old with history of difficulty breathing, TECHNIQUE: XR chest 2V view(s) obtained. FINDINGS: The heart size is normal. The pulmonary vasculature is normal. There is a right lower lobe infiltrate. Correlate for atelectasis or pneumonia.. Some left retrocard iac infiltrate may be present. IMPRESSION: 1. Bibasilar infiltrates. Correlate for atelectasis or pneumonia. [facility], , 10/10/2024 7:39 PM
[2024-10-10 19:42] LABS: ALT 48 U/L (4-34); AST 48 U/L (14-36); African American GFR (CKD) 54 (>60 ml/min/1.73 sqM); Albumin 3.4 g/dL (3.5-5.0); Alkaline Phosphatase 99 U/L (38-126); Anion Gap 9 mmol/L; Blood Urea Nitrogen 42 mg/dL (7-17); Calcium 8.5 mg/dL (8.4-10.2); Carbon Dioxide 36 mmol/L (22-30); Chloride 87 mmol/L (98-107); Glucose 101 mg/dL (74-99); Non-African American GFR(CKD) 47 (>60 ml/min/1.73 sqM); Sodium 132 mmol/L (137-145); Total Bilirubin 0.9 mg/dL (0.2-1.3); Total Protein 6.3 g/dL (6.3-8.2)
[2024-10-10 19:49] LABS: NT-Pro-B-Type Natriuretic Pept 6790 pg/mL
[2024-10-10 19:58] LABS: Potassium 2.5 mmol/L (3.5-5.1)
[2024-10-10 20:10] LABS: Prothrombin Time 11.1 sec (10.0-12.5)
[2024-10-10] MEDS: POTASSIUM CHLORIDE 10 MEQ in WATER FOR INJECTION 1 100ML.BAG IVPB SCH (20:30)
[2024-10-10] MEDS: POTASSIUM CHLORIDE ER 20 MEQ TAB.ER PO STA (20:30)
[2024-10-10] MEDS ORDERED: NALOXONE 0.4 MG/ML 1 ML VIAL IV PRN (21:27)
[2024-10-11 07:08] LABS: Basophils % (A) 0 %; Eosinophils # (A) 0.1 k/uL (0-0.7); Eosinophils % (A) 0 %; HCT 35.2 % (34.0-46.0); HGB 12.5 gm/dL (11.4-16.0); Lymphocytes # (A) 1.6 k/uL (1.0-4.8); Lymphocytes % (A) 11 %; MCH 37.4 pg (25.0-35.0); MCHC 35.5 g/dL (31.0-37.0); MCV 105.4 fL (80.0-100.0); Macrocytosis Slight; Mean Platelet Volume 8.1; Monocytes % (A) 7 %; Neutrophils # (A) 11.3 k/uL (1.3-7.7); Neutrophils % (A) 79 %; Platelet Count 224 k/uL (150-450); RBC 3.34 m/uL (3.80-5.40); RDW 12.4 % (11.5-15.5); WBC 14.3 k/uL (3.8-10.6)
[2024-10-11 07:36] LABS: ALT 48 U/L (4-34); AST 49 U/L (14-36); African American GFR (CKD) 63 (>60 ml/min/1.73 sqM); Albumin 3.1 g/dL (3.5-5.0); Alkaline Phosphatase 98 U/L (38-126); Anion Gap 7 mmol/L; Blood Urea Nitrogen 40 mg/dL (7-17); Calcium 8.5 mg/dL (8.4-10.2); Carbon Dioxide 32 mmol/L (22-30); Chloride 90 mmol/L (98-107); Glucose 114 mg/dL (74-99); Non-African American GFR(CKD) 54 (>60 ml/min/1.73 sqM); Potassium 3.3 mmol/L (3.5-5.1); Sodium 129 mmol/L (137-145); Total Bilirubin 1.3 mg/dL (0.2-1.3)
[2024-10-11] MEDS ORDERED: BUDESONIDE 0.5 MG/2 ML NEBU INHALATION PRN (09:31)
[2024-10-11] MEDS: DOXYCYCLINE 100 MG CAP PO SCH (09:53)
[2024-10-11] MEDS: allopurinoL 100 MG TAB PO SCH (09:53)
[2024-10-11] MEDS: SPIRONOLACTONE 25 MG TAB PO SCH (09:54)
[2024-10-11] MEDS: FUROSEMIDE 10 MG/ML 2 ML VIAL IV SCH (09:54)
[2024-10-11] MEDS: APIXABAN 5 MG TAB PO SCH (09:54)
[2024-10-11] MEDS: METOPROLOL TARTRATE 25 MG TAB PO SCH (09:56)
[2024-10-11] MEDS: CHOLECALCIFEROL 25 MCG (1000 IU) TABLET PO SCH (11:15)
[2024-10-11] MEDS: methylPREDNISolone SOD SUCCI 125 MG/2 ML VIAL IV SCH (11:15)
[2024-10-11] MEDS: MULTIVITAMINS, THERA 1 EACH TAB PO SCH (11:15)
[2024-10-11] MEDS: VIT A,C & E-LUTEIN-MINERALS 1 EACH TAB PO SCH (11:16)
[2024-10-11 12:09] LABS: C Reactive Protein 22.4 mg/dL (<1.0)
[2024-10-11] MEDS ORDERED: NON FORMULARY DRUG (Omega-3/Dha/Epa/Fish Oil [Omega-3 Fish Oil 1,000 Mg Sfgl] 1 EACH Capsu PO SCH (12:30)
--- NOTE | 2024-10-11 13:19 | P.HPIM ---
History of Present Illness H&P Date: 10/11/24 History of present illness; patient is a 88-year-old lady with past medical history significant for hypertension, hyperlipidemia, A-fib, anasarca, GERD, essential tremor, systolic congestive heart failure, osteoporosis, chronic kidney disease, chronic anemia Who presented to the ER because of cough and shortness of breath. Patient stated she was all right a week back when she started noticing that she was having cough and shortness of breath. Patient was also having fever and chills. Patient was complaining of lethargic and weakness. Patient denied any chest pain. There was complaint of worsening swelling of lower extremities, patient at baseline takes oral diuretics. Patient went to see his PCP and they did a COVID test was negative, patient was prescribed oral antibiotics and Tessalon Perles. Patient continued to worsen with worsening shortness of breath. Because of this, patient brought to the ER Initial lab work done in the ER showed WBC 14.5, hemoglobin 12.7, platelet count 218, sodium 132, potassium 2.5, BUN 42, creatinine 1.06, glucose 101, AST 48, ALT 48, Influenza A not detected Influenza B not detected RSV not detected COVID-19 not detected EKG done in the ER showed heart rate of 86, irregular rhythm, no ST segment elevation or depression seen, no T-wave inversions seen. Chest x-ray done in the ER showed bibasilar atelectasis with infiltrates, pneumonia suspected Patient admitted to internal medicine service REVIEW OF SYSTEMS: CONSTITUTIONAL: As mentioned above HEENT: No recent visual problems or hearing problems. Denied any sore throat. CARDIOVASCULAR: As mentioned above PULMONARY: As mentioned above GASTROINTESTINAL: No diarrhea, no nausea, no vomiting, no abdominal pain. NEUROLOGICAL: No headaches, no weakness, no numbness. HEMATOLOGICAL: Denies any bleeding or petechiae. GENITOURINARY: Denies any burning micturition, frequency, or urgency. MUSCULOSKELETAL/RHEUMATOLOGICAL: Denies any joint pain, swelling, or any muscle pain. ENDOCRINE: Denies any polyuria or polydipsia. The rest of the 14-point review of systems is negative. PHYSICAL EXAMINATION: GENERAL: The patient is alert and oriented x3, not in any acute distress. Well developed, well nourished. HEENT: Pupils are round and equally reacting to light. EOMI. No scleral icterus. No conjunctival pallor. Normocephalic, atraumatic. No pharyngeal erythema. No thyromegaly. CARDIOVASCULAR: S1 and S2 present. No murmurs, rubs, or gallops. PULMONARY: Coarse breath sound bilaterally, no wheezing or crackles. ABDOMEN: Soft, nontender, nondistended, normoactive bowel sounds. No palpable organomegaly. MUSCULOSKELETAL: No joint swelling or deformity. EXTREMITIES: No cyanosis, clubbing, chronic lower extremity edema NEUROLOGICAL: Gross neurological examination did not reveal any focal deficits. SKIN: No rashes. Assessment and plan Bacterial pneumonia, failed outpatient treatment Leukocytosis Hyponatremia Hypokalemia Atherosclerotic heart disease Chronic atrial fibrillation History of asthma History of anemia Essential tremor restless leg syndrome Hyperlipidemia GERD Osteoporosis Monitor vital signs Monitor CBC Monitor CMP Continue telemetry monitoring Ordered blood cultures Ordered sputum cultures Ordered IV Rocephin and azithromycin Ordered IV Lasix Resume home med Consult pulmonology Labs and medication were reviewed.. Continue same treatment. Continue with symptomatic treatment. Resume home medication. Monitor labs and vitals. DVT and GI prophylaxis. Further recommendations as per clinical course of the patient Dictation was produced using [employer] dictation software. please excuse any grammatical, word or spelling errors. Past Medical History Past Medical History: Eye Disorder, GERD/Reflux, Hyperlipidemia, Hypertension, Osteoarthritis (OA) Additional Past Medical History / Comment(s): STAGE ONE GLAUCOMA History of Any Multi-Drug Resistant Organisms: None Reported Additional Past Surgical History / Comment(s): LT TKA X 2. ORIF LT LEG. COLONOSCOPY. HERNIA X 2 Additional Past Anesthesia/Blood Transfusion Reaction / Comment(s): OVER MEDICATED AFTER LT TKA. UTI. UNCONTROLLED PAIN BEFORE AND AFTER SURGERY Past Psychological History: No Psychological Hx Reported Smoking Status: Never smoker Past Alcohol Use History: None Reported Past Drug Use History: None Reported - Past Family History Mother Family Medical History: Cancer Additional Family Medical History / Comment(s): age 49 from breast cancer Father Family Medical History: Myocardial Infarction ([place]) Additional Family Medical History / Comment(s): in his 60's from [place] Brother(s) Family Medical History: Diabetes Mellitus Additional Family Medical History / Comment(s): 2nd brother was paralized from accident later from complications Sister(s) Family Medical History: Diabetes Mellitus Medications and Allergies Home Medications Medication Instructions Recorded Confirmed Type Ferrous Sulfate [Iron (65 MG 325 mg PO W/SUPPER 06/04/16 10/11/24 History Elemental)] Fluticasone Nasal [place] [Flonase 1 spr EA NOSTRIL DAILY PRN 06/04/16 10/11/24 History Nasal [place]] Isosorbide Mononitrate ER [Imdur] 30 mg PO DAILY 06/04/16 10/11/24 History Metoprolol Tartrate [Lopressor] 25 mg PO BID 06/04/16 10/11/24 History guaiFENesin [Mucinex] 600 mg PO Q12HR PRN 06/04/16 10/11/24 History Albuterol Inhaler [Ventolin Hfa 1 - 2 puff INHALATION RT-QID PRN 01/26/24 10/11/24 History Inhaler] Apixaban [Eliquis] 5 mg PO BID 01/26/24 10/11/24 History Brimonidine Tartrate [Alphagan P 1 drop BOTH EYES BID 01/26/24 10/11/24 History 0.2% Ophth Soln] Budesonide [Pulmicort] 0.5 mg INHALATION RT-BID PRN 01/26/24 10/11/24 History Bumetanide [BUMEX] 3 mg PO BID@0800,1200 01/26/24 10/11/24 History Cetirizine HCl [Zyrtec] 10 mg PO W/LUNCH 01/26/24 10/11/24 History L.acidoph,Paracasei, B.lactis 1 cap PO W/SUPPER 01/26/24 10/11/24 History [Probiotic] Montelukast [Singulair] 10 mg PO HS 01/26/24 10/11/24 History Pantoprazole [Protonix] 40 mg PO W/SUPPER 01/26/24 10/11/24 History Potassium Chloride ER [K-Dur 20] 40 meq PO BID 01/26/24 10/11/24 History Primidone 100 mg PO BID-W/MEALS 01/26/24 10/11/24 History Rosuvastatin [Crestor] 10 mg PO HS 01/26/24 10/11/24 History Spironolactone [Aldactone] 25 mg PO DAILY 01/26/24 10/11/24 History Vit C/E/Zn/Coppr/Lutein/Zeaxan 1 cap PO BID@1200,2100 01/26/24 10/11/24 History [Preservision Areds 2 Softgel] allopurinoL 100 mg PO DAILY 01/26/24 10/11/24 History metOLazone [Zaroxolyn] 2.5 mg PO Q2D 01/26/24 10/11/24 History rOPINIRole HCL [Requip] 1 mg PO BID@1700,2100 01/26/24 10/11/24 History Benzonatate [Tessalon Perles] 100 mg PO TID 10/11/24 10/11/24 History Calcium Carbonate 1,000 mg PO DAILY 10/11/24 10/11/24 History Cholecalciferol (Vitamin D3) 50 mcg PO W/LUNCH 10/11/24 10/11/24 History [Vitamin D3 (50 Mcg = 2000 Iu) Chew Tab] Doxycycline Hyclate 100 mg PO BID 10/11/24 10/11/24 History Multivitamins, Thera [Multivitamin 1 tab PO W/LUNCH 10/11/24 10/11/24 History (formulary)] Hanna-3/Dha/Epa/Fish Oil [Hanna-3 1 cap PO W/LUNCH 10/11/24 10/11/24 History Fish Oil 1,000 mg Sfgl] methylPREDNISolone Dose Pack See Taper PO DIRECTED 10/11/24 10/11/24 History [Medrol Dose Pack] traZODone HCL [Desyrel] 50 mg PO HS PRN 10/11/24 10/11/24 History Allergies Allergy/AdvReac Type Severity Reaction Status Date / Time clindamycin Allergy Heavy Verified 10/11/24 08:38 chest/SOB Latex, Natural Rubber Allergy Rash/Hives Verified 10/11/24 08:38 levalbuterol Allergy Heavy Verified 10/11/24 08:38 chest/SOB Penicillins Allergy Rash/Hives Verified 10/11/24 08:38 clarithromycin AdvReac Nausea & Verified 10/11/24 08:38 Vomiting Physical Exam Vitals: Vital Signs Temp Pulse Resp BP Pulse Ox 10/11/24 07:32 110 H 24 122/56 94 L 10/11/24 06:00 98.9 F 110 H 22 114/78 97 10/11/24 00:43 98.5 F 109 H 22 120/50 97 10/10/24 20:26 82 18 113/60 95 10/10/24 18:06 98.8 F 90 18 109/42 95 Intake and Output 10/10/24 10/11/24 10/11/24 22:59 06:59 14:59 Output Total 300 Balance -300 Output: Urine 300 Straight 300 Other: Weight 92.533 kg Results CBC & Chem 7: 10/11/24 06:54 10/11/24 06:54 Labs: Abnormal Lab Results - Last 24 Hours (Table) 10/10/24 10/10/24 10/11/24 Range/Units 19:20 19:20 06:54 WBC 14.5 H 14.3 H (3.8-10.6) k/uL RBC 3.49 L 3.34 L (3.80-5.40) m/uL MCV 105.3 H 105.4 H (80.0-100.0) fL MCH 36.3 H 37.4 H (25.0-35.0) pg Neutrophils # 11.4 H 11.3 H (1.3-7.7) k/uL Monocytes # 1.1 H (0-1.0) k/uL Sodium 132 L (137-145) mmol/L Potassium 2.5 L* (3.5-5.1) mmol/L Chloride 87 L (98-107) mmol/L Carbon Dioxide 36 H (22-30) mmol/L BUN 42 H (7-17) mg/dL Creatinine 1.06 H (0.52-1.04) mg/dL Glucose 101 H (74-99) mg/dL AST 48 H (14-36) U/L ALT 48 H (4-34) U/L Total Protein (6.3-8.2) g/dL Albumin 3.4 L (3.5-5.0) g/dL 10/11/24 Range/Units 06:54 WBC (3.8-10.6) k/uL RBC (3.80-5.40) m/uL MCV (80.0-100.0) fL MCH (25.0-35.0) pg Neutrophils # (1.3-7.7) k/uL Monocytes # (0-1.0) k/uL Sodium 129 L (137-145) mmol/L Potassium 3.3 L (3.5-5.1) mmol/L Chloride 90 L (98-107) mmol/L Carbon Dioxide 32 H (22-30) mmol/L BUN 40 H (7-17) mg/dL Creatinine (0.52-1.04) mg/dL Glucose 114 H (74-99) mg/dL AST 49 H (14-36) U/L ALT 48 H (4-34) U/L Total Protein 6.0 L (6.3-8.2) g/dL Albumin 3.1 L (3.5-5.0) g/dL
--- NOTE | 2024-10-11 15:26 | P.CNPUL ---
History of Present Illness Consult date: 10/11/24 Requesting physician: Kyle E Brian Reason for consult: dyspnea, cough, abnormal CXR/CT Chief complaint: Shortness of breath, cough, congestion History of present illness: This is a pleasant 88-year-old female patient with a known history of atrial fibrillation anticoagulated with Eliquis, congestive heart failure, asthma, gout, hyperlipidemia, hypertension, osteoarthritis, gastroesophageal reflux disease, lifelong non-smoker. She presented here to the emergency room last evening with a 1 week history of increasing shortness of breath, cough congestion, fever. Generalized weakness. Yellow productive sputum. Poor appetite. Chest x-ray reveals bibasilar infiltrates consistent with pneumonia versus fluid volume overload, atelectasis. EKG reveals atrial fibrillation with a controlled ventricular response. White count 14.3. Hemoglobin 12.5. Platelets 224. Sodium 129. Potassium 3.3. Bicarb 32. BUN 40. Creatinine 0.94. Glucose 114. AST 49. ALT 48. proBNP 4900. Viral screen negative. She is seen today in consultation in the emergency department. Currently sitting up on a stretcher. Awake and alert in no acute distress. Maintaining O2 saturations in the 90s on room air. She does have a very congested cough with some yellow productive sputum. She is afebrile. Hemodynamically stable. Review of Systems REVIEW OF SYSTEMS: CONSTITUTIONAL: Denies any recent significant weight loss or weight gain. EYES: Denies change in vision. EARS, NOSE, MOUTH, THROAT: Denies headaches, denies sore throat. CARDIOVASCULAR: Denies chest pain, palpitations or syncopal episodes. RESPIRATORY: Positive for shortness of breath, cough, congestion no hemoptysis. GASTROINTESTINAL: Denies change in appetite, denies abdominal pain GENITOURINARY: Denies hematuria, denies infections. MUSKULOSKELETAL: Denies pain, denies swelling. INTEGUMENTARY: Denies rash, denies eczema. NEUROLOGICAL: Denies recent memory loss, no recent seizure activity. PSYCHIATRIC: Denies anxiety, denies depression. HEMATOLOGIC/LYMPHATIC: Denies anemia, denies enlarged lymph nodes. Past Medical History Past Medical History: Eye Disorder, GERD/Reflux, Hyperlipidemia, Hypertension, Osteoarthritis (OA) Additional Past Medical History / Comment(s): STAGE ONE GLAUCOMA History of Any Multi-Drug Resistant Organisms: None Reported Additional Past Surgical History / Comment(s): LT TKA X 2. ORIF LT LEG. COLONOSCOPY. HERNIA X 2 Additional Past Anesthesia/Blood Transfusion Reaction / Comment(s): OVER MEDICATED AFTER LT TKA. UTI. UNCONTROLLED PAIN BEFORE AND AFTER SURGERY Past Psychological History: No Psychological Hx Reported Smoking Status: Never smoker Past Alcohol Use History: None Reported Past Drug Use History: None Reported - Past Family History Mother Family Medical History: Cancer Additional Family Medical History / Comment(s): age 49 from breast cancer Father Family Medical History: Myocardial Infarction ([place]) Additional Family Medical History / Comment(s): in his 60's from mi Brother(s) Family Medical History: Diabetes Mellitus Additional Family Medical History / Comment(s): 2nd brother was paralized from accident later from complications Sister(s) Family Medical History: Diabetes Mellitus Medications and Allergies Home Medications Medication Instructions Recorded Confirmed Type Ferrous Sulfate [Iron (65 MG 325 mg PO W/SUPPER 06/04/16 10/11/24 History Elemental)] Fluticasone Nasal [facility] [Flonase 1 spr EA NOSTRIL DAILY PRN 06/04/16 10/11/24 History Nasal [facility]] Isosorbide Mononitrate ER [Imdur] 30 mg PO DAILY 06/04/16 10/11/24 History Metoprolol Tartrate [Lopressor] 25 mg PO BID 06/04/16 10/11/24 History guaiFENesin [Mucinex] 600 mg PO Q12HR PRN 06/04/16 10/11/24 History Albuterol Inhaler [Ventolin Hfa 1 - 2 puff INHALATION RT-QID PRN 01/26/24 10/11/24 History Inhaler] Apixaban [Eliquis] 5 mg PO BID 01/26/24 10/11/24 History Brimonidine Tartrate [Alphagan P 1 drop BOTH EYES BID 01/26/24 10/11/24 History 0.2% Ophth Soln] Budesonide [Pulmicort] 0.5 mg INHALATION RT-BID PRN 01/26/24 10/11/24 History Bumetanide [BUMEX] 3 mg PO BID@0800,1200 01/26/24 10/11/24 History Cetirizine HCl [Zyrtec] 10 mg PO W/LUNCH 01/26/24 10/11/24 History L.acidoph,Paracasei, B.lactis 1 cap PO W/SUPPER 01/26/24 10/11/24 History [Probiotic] Montelukast [Singulair] 10 mg PO HS 01/26/24 10/11/24 History Pantoprazole [Protonix] 40 mg PO W/SUPPER 01/26/24 10/11/24 History Potassium Chloride ER [K-Dur 20] 40 meq PO BID 01/26/24 10/11/24 History Primidone 100 mg PO BID-W/MEALS 01/26/24 10/11/24 History Rosuvastatin [Crestor] 10 mg PO HS 01/26/24 10/11/24 History Spironolactone [Aldactone] 25 mg PO DAILY 01/26/24 10/11/24 History Vit C/E/Zn/Coppr/Lutein/Zeaxan 1 cap PO BID@1200,2100 01/26/24 10/11/24 History [Preservision Areds 2 Softgel] allopurinoL 100 mg PO DAILY 01/26/24 10/11/24 History metOLazone [Zaroxolyn] 2.5 mg PO Q2D 01/26/24 10/11/24 History rOPINIRole HCL [Requip] 1 mg PO BID@1700,2100 01/26/24 10/11/24 History Benzonatate [Tessalon Perles] 100 mg PO TID 10/11/24 10/11/24 History Calcium Carbonate 1,000 mg PO DAILY 10/11/24 10/11/24 History Cholecalciferol (Vitamin D3) 50 mcg PO W/LUNCH 10/11/24 10/11/24 History [Vitamin D3 (50 Mcg = 2000 Iu) Chew Tab] Doxycycline Hyclate 100 mg PO BID 10/11/24 10/11/24 History Multivitamins, Thera [Multivitamin 1 tab PO W/LUNCH 10/11/24 10/11/24 History (formulary)] Dunlap-3/Dha/Epa/Fish Oil [Dunlap-3 1 cap PO W/LUNCH 10/11/24 10/11/24 History Fish Oil 1,000 mg Sfgl] methylPREDNISolone Dose Pack See Taper PO DIRECTED 10/11/24 10/11/24 History [Medrol Dose Pack] traZODone HCL [Desyrel] 50 mg PO HS PRN 10/11/24 10/11/24 History Allergies Allergy/AdvReac Type Severity Reaction Status Date / Time clindamycin Allergy Heavy Verified 10/11/24 08:38 chest/SOB Latex, Natural Rubber Allergy Rash/Hives Verified 10/11/24 08:38 levalbuterol Allergy Heavy Verified 10/11/24 08:38 chest/SOB Penicillins Allergy Rash/Hives Verified 10/11/24 08:38 clarithromycin AdvReac Nausea & Verified 10/11/24 08:38 Vomiting Physical Exam Vitals: Vital Signs Temp Pulse Resp BP Pulse Ox 10/11/24 14:00 75 16 115/69 96 10/11/24 12:00 84 20 110/57 94 L 10/11/24 11:00 80 16 112/83 92 L 10/11/24 09:59 110 H 20 126/65 92 L 10/11/24 07:32 110 H 24 122/56 94 L 10/11/24 06:00 98.9 F 110 H 22 114/78 97 10/11/24 00:43 98.5 F 109 H 22 120/50 97 10/10/24 20:26 82 18 113/60 95 10/10/24 18:06 98.8 F 90 18 109/42 95 GENERAL EXAM: Alert, pleasant 88-year-old female, on room air, fairly comfort able in no apparent distress. HEAD: Normocephalic. EYES: Normal reaction of pupils, equal size. NOSE: Clear with pink turbinates. THROAT: No erythema or exudates. NECK: No masses, no JVD. CHEST: No chest wall deformity. LUNGS: Equal air entry with bilateral bases, few scattered rhonchi. CVS: S1 and S2 normal with no audible murmur, regular rhythm. ABDOMEN: No hepatosplenomegaly, normal bowel sounds, no guarding or rigidity. SPINE: No scoliosis or deformity SKIN: No rashes CENTRAL NERVOUS SYSTEM: No focal deficits, tone is normal in all 4 extremities. EXTREMITIES: There is 1+ peripheral edema. No clubbing, no cyanosis. Peripheral pulses are intact. Results - Laboratory Findings CBC and BMP: 10/11/24 06:54 10/11/24 06:54 PT/INR, D-dimer PT 11.1 sec (10.0-12.5) 10/10/24 19:20 INR 1.0 (<1.2) 10/10/24 19:20 Abnormal lab findings: Abnormal Labs 10/10/24 10/10/24 10/11/24 19:20 19:20 06:54 WBC 14.5 H 14.3 H RBC 3.49 L 3.34 L MCV 105.3 H 105.4 H MCH 36.3 H 37.4 H Neutrophils # 11.4 H 11.3 H Monocytes # 1.1 H Sodium 132 L Potassium 2.5 L* Chloride 87 L Carbon Dioxide 36 H BUN 42 H Creatinine 1.06 H Glucose 101 H AST 48 H ALT 48 H C-Reactive Protein Total Protein Albumin 3.4 L 10/11/24 10/11/24 06:54 06:54 WBC RBC MCV MCH Neutrophils # Monocytes # Sodium 129 L Potassium 3.3 L Chloride 90 L Carbon Dioxide 32 H BUN 40 H Creatinine Glucose 114 H AST 49 H ALT 48 H C-Reactive Protein 22.4 H Total Protein 6.0 L Albumin 3.1 L - Diagnostic Findings Chest x-ray: image reviewed Assessment and Plan Assessment: Acute dyspnea secondary to an acute exacerbation of mild intermittent chronic bronchial asthma, suspected community-acquired pneumonia versus diastolic congestive heart failure Leukocytosis secondary to above Acute kidney injury secondary to dehydration Hyponatremia secondary to above Hypokalemia secondary to above Mild transaminitis secondary to above Chronic atrial fibrillation, anticoagulated with Eliquis Hypertension Hyperlipidemia History of gout History of mild intermittent chronic bronchial asthma Lifelong non-smoker History of congestive heart failure Plan: The patient was seen and evaluated Chest x-ray, labs and medications reviewed Continue ceftriaxone and doxycycline Add albuterol, Pulmicort inhalations Add Solu-Medrol Continue Mucinex, Tessalon Perles Continue IV diuretics Replace electrolytes Check a procalcitonin Sputum and blood cultures Resume home medications Oxygen supplement if needed We will continue to follow and make further recommendations based on her clinical status I have personally seen and examined the patient, performed the documentation and the assessment and plan as written. Number of minutes spent on the visit: 20 Dictation was produced using weipassation software. Please excuse any grammatical, word or spelling errors.
[2024-10-11] MEDS: BENZONATATE 100 MG CAP PO SCH (15:30)
[2024-10-11] MEDS: ACETAMINOPHEN TAB 325 MG TAB PO PRN (15:30)
[2024-10-11] MEDS: LACTOBACILLUS ACIDOPHILUS/PECT 1 EACH CAPSULE PO SCH (17:08)
[2024-10-11] MEDS: PRIMIDONE 50 MG TAB PO SCH (17:09)
[2024-10-11] MEDS: PANTOPRAZOLE 40 MG TABLET PO SCH (17:09)
[2024-10-11] MEDS: FERROUS SULFATE 325 MG TAB PO SCH (17:09)
[2024-10-11] MEDS: BUDESONIDE 1 MG/2 ML NEBU INHALATION SCH (20:07)
[2024-10-11] MEDS: POTASSIUM CHLORIDE ER 20 MEQ TAB.ER PO SCH (20:44)
[2024-10-11] MEDS: ATORVASTATIN 20 MG TAB PO SCH (20:44)
[2024-10-11] MEDS: MONTELUKAST 10 MG TAB PO SCH (20:45)
[2024-10-12 09:10] LABS: ALT 39 U/L (8-44); AST 24 U/L (13-35); Albumin 2.8 g/dL (3.8-4.9); Albumin/Globulin Ratio 1.12 Ratio (1.60-3.17); Alkaline Phosphatase 76 U/L (41-126); BUN/Creat Ratio 42.44 Ratio (12.00-20.00); Blood Urea Nitrogen 38.2 mg/dL (9.0-27.0); Calcium 8.2 mg/dL (8.7-10.3); Carbon Dioxide 28.9 mmol/L (21.6-31.8); Chloride 91 mmol/L (96-109); Globulin 2.5 g/dL (1.6-3.3); Glucose 118 mg/dL (70-110); Potassium 3.7 mmol/L (3.5-5.5); Sodium 131 mmol/L (135-145); Total Bilirubin 0.4 mg/dL (0.3-1.2); Total Protein 5.3 g/dL (6.2-8.2)
[2024-10-12 09:11] LABS: Basophils # (A) 0.03 X 10*3/uL (0.00-0.10); Basophils % (A) 0.3 %; Eosinophils # (A) 0.02 X 10*3/uL (0.04-0.35); Eosinophils % (A) 0.2 %; HCT 32.6 % (37.2-46.3); HGB 11.3 g/dL (12.0-15.0); Lymphocytes # (A) 1.38 X 10*3/uL (0.90-5.00); Lymphocytes % (A) 12.2 %; MCH 35.5 pg (27.0-32.0); MCHC 34.7 g/dL (32.0-37.0); MCV 102.5 FL (80.0-97.0); Mean Platelet Volume 10.6 FL (9.5-12.2); Monocytes # (A) 0.82 X 10*3/uL (0.20-1.00); Monocytes % (A) 7.2 %; NRBC Per 100 WBC 0 X 10*3/uL (0.00-0.01); Neutrophils # (A) 8.93 X 10*3/uL (1.80-7.70); Neutrophils % (A) 78.8 %; Platelet Count 230 X 10*3/uL (140-440); RBC 3.18 X 10*6/uL (4.10-5.20); RDW 13.2 % (11.5-14.5); WBC 11.33 X 10*3/uL (4.50-10.00)
[2024-10-12] MEDS: ISOSORBIDE MONONITRATE ER 30 MG TAB.ER.24H PO SCH (09:25)
--- NOTE | 2024-10-12 12:51 | P.PN ---
Subjective Progress Note Date: 10/12/24 This is a pleasant 88-year-old female patient with a known history of atrial fibrillation anticoagulated with Eliquis, congestive heart failure, asthma, gout, hyperlipidemia, hypertension, osteoarthritis, gastroesophageal reflux disease, lifelong non-smoker. She presented here to the emergency room last evening with a 1 week history of increasing shortness of breath, cough congestion, fever. Generalized weakness. Yellow productive sputum. Poor appetite. Chest x-ray reveals bibasilar infiltrates consistent with pneumonia versus fluid volume overload, atelectasis. EKG reveals atrial fibrillation with a controlled ventricular response. White count 14.3. Hemoglobin 12.5. Platelets 224. Sodium 129. Potassium 3.3. Bicarb 32. BUN 40. Creatinine 0.94. Glucose 114. AST 49. ALT 48. proBNP 4900. Viral screen negative. She is seen today in consultation in the emergency department. Currently sitting up on a stretcher. Awake and alert in no acute distress. Maintaining O2 saturations in the 90s on room air. She does have a very congested cough with some yellow productive sputum. She is afebrile. Hemodynamically stable. The patient is seen today October 12, 2024 in follow-up on the regular medical floor. She is awake and alert in no acute distress. Currently sitting up in a chair. Denies any worsening shortness of breath, cough or congestion. Doing a bit better today compared to yesterday. Maintaining O2 saturation in the 90s on 1 L/min per nasal cannula. Her procalcitonin was negative at 0.14. Her antibiotics will be discontinued. She remains on albuterol, Pulmicort, Solu- Medrol and Singulair. She is continued on Lasix 20 mg IV every 12 hours. Anticoagulated with Eliquis. White count 11.3. Hemoglobin 11.3. Platelets 230. Sodium 131. Potassium 3.7. Bicarb 29. BUN 38. Creatinine 0.9. Glucose 118. Objective - Vital Signs Vital signs: Vital Signs Temp 97.6 F 10/12/24 07:05 Pulse 96 10/12/24 08:24 Resp 16 10/12/24 08:24 BP 103/64 10/12/24 07:05 Pulse Ox 93 L 10/12/24 08:16 FiO2 Intake & Output 10/11/24 10/12/24 10/12/24 18:59 06:59 18:59 Output Total 700 200 Balance -700 -200 Weight 92.533 kg Output: Urine 700 200 Other: Voiding Method External Catheter External Catheter # Voids 1 - Exam GENERAL EXAM: Alert, 88-year-old female, on room air, sitting up in a chair, comfortable in no apparent distress. HEAD: Normocephalic. EYES: Normal reaction of pupils, equal size. NOSE: Clear with pink turbinates. THROAT: No erythema or exudates. NECK: No masses, no JVD. CHEST: No chest wall deformity. LUNGS: Equal air entry with few scattered rhonchi, end expiratory wheeze. CVS: S1 and S2 normal with no audible murmur, regular rhythm. ABDOMEN: No hepatosplenomegaly, normal bowel sounds, no guarding or rigidity. SPINE: No scoliosis or deformity SKIN: No rashes CENTRAL NERVOUS SYSTEM: No focal deficits, tone is normal in all 4 extremities. EXTREMITIES: There is 1+ peripheral edema. No clubbing, no cyanosis. Peripheral pulses are intact. - Labs CBC & Chem 7: 10/12/24 04:47 10/12/24 04:47 Labs: Abnormal Lab Results - Last 24 Hours (Table) 10/11/24 10/12/24 10/12/24 Range/Units 06:54 04:47 04:47 WBC 11.33 H (4.50-10.00) X 10*3/uL RBC 3.18 L (4.10-5.20) X 10*6/uL Hgb 11.3 L (12.0-15.0) g/dL Hct 32.6 L (37.2-46.3) % MCV 102.5 H (80.0-97.0) FL MCH 35.5 H (27.0-32.0) pg Immature Gran # 0.15 H (0.00-0.04) X 10*3/uL Neutrophils # 8.93 H (1.80-7.70) X 10*3/uL Eosinophils # 0.02 L (0.04-0.35) X 10*3/uL ESR 50 H (0-30) mm/Hr Sodium 131 L (135-145) mmol/L Chloride 91 L (96-109) mmol/L BUN 38.2 H (9.0-27.0) mg/dL BUN/Creatinine Ratio 42.44 H (12.00-20.00) Ratio Glucose 118 H (70-110) mg/dL Calcium 8.2 L (8.7-10.3) mg/dL Total Protein 5.3 L (6.2-8.2) g/dL Albumin 2.8 L (3.8-4.9) g/dL Albumin/Globulin Ratio 1.12 L (1.60-3.17) Ratio Microbiology - Last 24 Hours (Table) 10/10/24 19:16 Blood Culture - Preliminary Blood Assessment and Plan Assessment: Acute exacerbation of mild intermittent chronic bronchial asthma, diastolic congestive heart failure. Procalcitonin negative. Antibiotics discontinued Leukocytosis secondary to above, improving Acute kidney injury secondary to dehydration, improving Hyponatremia secondary to above Hypokalemia secondary to above, improved Mild transaminitis secondary to above Chronic atrial fibrillation, anticoagulated with Eliquis Hypertension Hyperlipidemia History of gout History of mild intermittent chronic bronchial asthma Lifelong non-smoker History of congestive heart failure Plan: The patient was seen and evaluated Labs and medications reviewed Discontinue ceftriaxone and doxycycline Continue bronchodilators, steroids Continue IV diuretics Titrate down the FiO2 as tolerated We will continue to follow I have personally seen and examined the patient, performed the documentation and the assessment and plan as written. Number of minutes spent on the visit: 10 Dictation was produced using [employer] dictation software. Please excuse any grammatical, word or spelling errors.
--- NOTE | 2024-10-12 13:43 | P.PN ---
Subjective Progress Note Date: 10/12/24 patient is a 88-year-old lady with past medical history significant for hypertension, hyperlipidemia, A-fib, anasarca, GERD, essential tremor, systolic congestive heart failure, osteoporosis, chronic kidney disease, chronic anemia Who presented to the ER because of cough and shortness of breath. Patient s tated she was all right a week back when she started noticing that she was having cough and shortness of breath. Patient was also having fever and chills. Patient was complaining of lethargic and weakness. Patient denied any chest pain. There was complaint of worsening swelling of lower extremities, patient at baseline takes oral diuretics. Patient went to see his PCP and they did a COVID test was negative, patient was prescribed oral antibiotics and Tessalon Perles. Patient continued to worsen with worsening shortness of breath. Because of this, patient brought to the ER Initial lab work done in the ER showed WBC 14.5, hemoglobin 12.7, platelet count 218, sodium 132, potassium 2.5, BUN 42, creatinine 1.06, glucose 101, AST 48, ALT 48, Influenza A not detected Influenza B not detected RSV not detected COVID-19 not detected EKG done in the ER showed heart rate of 86, irregular rhythm, no ST segment elevation or depression seen, no T-wave inversions seen. Chest x-ray done in the ER showed bibasilar atelectasis with infiltrates, pneumonia suspected Patient admitted to internal medicine service 10/12. Patient seen and examined. Blood work done showed WBC 11.33, hemoglobin 9.3, sodium 135, potassium 3.7, BUN 38, creatinine 0.9,. Breathing is improved. Patient is complaining of lethargic and weakness REVIEW OF SYSTEMS: CONSTITUTIONAL: No fever, no malaise,. CARDIOVASCULAR: No chest pain, no palpitations, no syncope. PULMONARY: No shortness of breath, no cough, GASTROINTESTINAL: No diarrhea, no nausea, no vomiting, no abdominal pain. NEUROLOGICAL: No headaches, no weakness, PHYSICAL EXAMINATION: GENERAL: The patient is alert and oriented x3, ill looking HEENT: Pupils are round and equally reacting to light. EOMI. No scleral icterus. No conjunctival pallor. Normocephalic, atraumatic. No pharyngeal erythema. No thyromegaly. CARDIOVASCULAR: S1 and S2 present. No murmurs, rubs, or gallops. PULMONARY: Diminished breath sounds at the bases bilaterally, no wheezing or crackles. ABDOMEN: Soft, nontender, nondistended, normoactive bowel sounds. No palpable organomegaly. MUSCULOSKELETAL: No joint swelling or deformity. EXTREMITIES: No cyanosis, clubbing, or pedal edema. NEUROLOGICAL: Gross neurological examination did not reveal any focal deficits. SKIN: No rashes. Assessment and plan Bacterial pneumonia, failed outpatient treatment Leukocytosis Hyponatremia Hypokalemia Atherosclerotic heart disease Chronic atrial fibrillation History of asthma History of anemia Essential tremor restless leg syndrome Hyperlipidemia GERD Osteoporosis Monitor vital signs Monitor CBC Monitor CMP Follow-up on blood cultures Follow-up sputum culture Continue IV Rocephin azithromycin Continue IV Lasix Pulmonology following Labs and medication were reviewed.. Continue same treatment. Continue with symptomatic treatment. Resume home medication. Monitor labs and vitals. DVT and GI prophylaxis. Further recommendations as per clinical course of the candido ent Dictation was produced using [employer] dictation software. please excuse any grammatical, word or spelling errors. Objective - Vital Signs Vital signs: Vital Signs Temp 97.6 F 10/12/24 07:05 Pulse 96 10/12/24 08:24 Resp 16 10/12/24 08:24 BP 103/64 10/12/24 07:05 Pulse Ox 93 L 10/12/24 08:16 FiO2 Intake & Output 10/11/24 10/12/24 10/12/24 18:59 06:59 18:59 Output Total 700 200 Balance -700 -200 Weight 92.533 kg Output: Urine 700 200 Other: Voiding Method External Catheter External Catheter # Voids 1 - Labs CBC & Chem 7: 10/12/24 04:47 10/12/24 04:47 Labs: Abnormal Lab Results - Last 24 Hours (Table) 10/11/24 10/12/24 10/12/24 Range/Units 06:54 04:47 04:47 WBC 11.33 H (4.50-10.00) X 10*3/uL RBC 3.18 L (4.10-5.20) X 10*6/uL Hgb 11.3 L (12.0-15.0) g/dL Hct 32.6 L (37.2-46.3) % MCV 102.5 H (80.0-97.0) FL MCH 35.5 H (27.0-32.0) pg Immature Gran # 0.15 H (0.00-0.04) X 10*3/uL Neutrophils # 8.93 H (1.80-7.70) X 10*3/uL Eosinophils # 0.02 L (0.04-0.35) X 10*3/uL ESR 50 H (0-30) mm/Hr Sodium 131 L (135-145) mmol/L Chloride 91 L (96-109) mmol/L BUN 38.2 H (9.0-27.0) mg/dL BUN/Creatinine Ratio 42.44 H (12.00-20.00) Ratio Glucose 118 H (70-110) mg/dL Calcium 8.2 L (8.7-10.3) mg/dL Total Protein 5.3 L (6.2-8.2) g/dL Albumin 2.8 L (3.8-4.9) g/dL Albumin/Globulin Ratio 1.12 L (1.60-3.17) Ratio Microbiology - Last 24 Hours (Table) 10/10/24 19:16 Blood Culture - Preliminary Blood
[2024-10-12] MEDS ORDERED: ZINC OXIDE PASTE (Z-GUARD) 1 APPLIC TOPICAL PRN (16:54)
--- NOTE | 2024-10-12 17:15 | CDI ---
Documentation Clarification Form Date: 10/12/2024 From: Cynthia Em Contact via ARI Email: [email or web address] Admit Date: 10/10/2024 09:28:00 PM Patient Name: Lynn Jones Visit Number: [id number] ATTENTION: The Clinical Documentation Specialists (CDI) and [facility] Coding Staff appreciate your assistance in clarifying documentation. Please respond to the clarification below the line at the bottom and electronically sign. The CDI & [facility] Coding staff will review the response and follow-up if needed. Please note: Queries are made part of the Legal Health Record. If you have any questions, please contact the author of this message via ITS. Doctor/Provider: Jaspal Helton The patient has leukocytosis, bacterial pneumonia, and acute kidney injury. Based on this information and the findings below, is there an additional diagnosis that is clinically appropriate for this patient? History/Risk Factors: 88yo presented with productive cough, dyspnea, subjective fever and chills for 1 week, and B/L lower extremity edema. Clinical Indicators: H&P noted coarse breath sounds. Pulm consult noted productive cough w/ yellow sputum CXR 10/10: Bibasilar infiltrates correlate clinically for atelectasis or pneumonia WBC: 10/10 14.5, 10/11 14.3, 10/12 11.33 Lactic acid 10/10: 1.3 CRP: 10/11 22.4 BNP: 10/10 6790, 10/11 4900 Procalcitonin 10/11: 0.14 Vitals signs: 10/10 @ 1806 98.8, 90, 18, 109/42, 95% on RA 10/11 @ 0043 98.5, 109, 22, 120/50, 97% on RA Treatment: Rocephin IV, Lasix IV, SVN, Solu-Medrol IV Is there an additional diagnosis that is clinically appropriate for this patient? [ ] Sepsis secondary to bacterial pneumonia [ x ] SIRS, without underlying infectious process secondary to CHF exacerbation [ ] No additional diagnosis/not clinically significant [ ] Other, please specify [ ] Unable to determine SIRS Criteria: 2 or more of the following may indicate SIRS Temperature < 96.8F (36C) or > 101.0F (38.3C) Heart Rate > 90 bpm Respiratory Rate > 20 breaths/min or PaCO2 < 32 mmHg White Blood Cell Count > 12,000 or < 4,000 cells/mm3 or > 10% bands (Template Last Reviewed: September 2022) [facility]
[2024-10-12] MEDS: ALBUTEROL NEBULIZED 2.5 MG/3 ML INHALATION PRN (20:28)
--- NOTE | 2024-10-13 10:53 | XR ---
EXAMINATION TYPE: XR chest 1V portable DATE OF EXAM: 10/13/2024 7:07 AM COMPARISON: 10/10/2024 CLINICAL INDICATION: Female, 88 years old with history of CHF, TECHNIQUE: XR chest 1V portable view(s) obtained. FINDINGS: The heart size is prominent. The pulmonary vasculature is normal. Right lower lobe infiltrate is present. Left costophrenic angle infiltrate is present. There is some platelike atelectasis in the left midlung. IMPRESSION: 1. Cardiomegaly. 2. Bibasilar infiltrates. Correlate for atelectasis [facility], Workstation: [facility], 10/13/2024 10:50 AM
--- NOTE | 2024-10-13 14:26 | P.PN ---
Subjective Progress Note Date: 10/13/24 This is a pleasant 88-year-old female patient with a known history of atrial fibrillation anticoagulated with Eliquis, congestive heart failure, asthma, gout, hyperlipidemia, hypertension, osteoarthritis, gastroesophageal reflux disease, lifelong non-smoker. She presented here to the emergency room last evening with a 1 week history of increasing shortness of breath, cough congestion, fever. Generalized weakness. Yellow productive sputum. Poor appetite. Chest x-ray reveals bibasilar infiltrates consistent with pneumonia versus fluid volume overload, atelectasis. EKG reveals atrial fibrillation with a controlled ventricular response. White count 14.3. Hemoglobin 12.5. Platelets 224. Sodium 129. Potassium 3.3. Bicarb 32. BUN 40. Creatinine 0.94. Glucose 114. AST 49. ALT 48. proBNP 4900. Viral screen negative. She is seen today in consultation in the emergency department. Currently sitting up on a stretcher. Awake and alert in no acute distress. Maintaining O2 saturations in the 90s on room air. She does have a very congested cough with some yellow productive sputum. She is afebrile. Hemodynamically stable. The patient is seen today October 12, 2024 in follow-up on the regular medical floor. She is awake and alert in no acute distress. Currently sitting up in a chair. Denies any worsening shortness of breath, cough or congestion. Doing a bit better today compared to yesterday. Maintaining O2 saturation in the 90s on 1 L/min per nasal cannula. Her procalcitonin was negative at 0.14. Her antibiotics will be discontinued. She remains on albuterol, Pulmicort, Solu- Medrol and Singulair. She is continued on Lasix 20 mg IV every 12 hours. Anticoagulated with Eliquis. White count 11.3. Hemoglobin 11.3. Platelets 230. Sodium 131. Potassium 3.7. Bicarb 29. BUN 38. Creatinine 0.9. Glucose 118. The patient is seen today October 13, 2024 in follow-up on the regular medical floor. She is currently sitting up in a chair at the bedside. Awake and alert in no acute distress. Denies any worsening shortness of breath, cough or congestion. She is maintaining good O2 saturations in the 90s on 2 L/min per nasal cannula. Follow-up chest x-ray reveals cardiomegaly. Bibasilar infiltrates. Suspect atelectasis. She is encouraged regarding the increased use of the incentive spirometer. Sputum cultures pending. She remains on albuterol, Solu-Medrol, Tessalon Perles, Singulair. Antibiotics in the form of ceftriaxone and doxycycline. Remains on IV diuretics. Currently in a -650 balance. Objective - Vital Signs Vital signs: Vital Signs Temp 97.5 F L 10/13/24 08:00 Pulse 96 10/13/24 09:38 Resp 18 10/13/24 08:00 BP 102/57 10/13/24 08:00 Pulse Ox 95 10/13/24 09:23 FiO2 Intake & Output 10/12/24 10/13/24 10/13/24 18:59 06:59 18:59 Intake Total 50 Output Total 700 Balance 50 -700 Weight 97 kg Intake: Intake, IV Titration 50 Amount cefTRIAXone 2 gm In 50 Sodium Chloride 0.9% 50 ml @ 100 mls/hr IVPB Q24HR [facility] Rx#:[id number] Output: Urine 700 Other: Voiding Method External Catheter External Catheter Diaper External Catheter # Voids 1 # Bowel Movements 1 - Exam GENERAL EXAM: Alert, pleasant 88-year-old female, on room air, up in a chair, in no apparent distress. HEAD: Normocephalic. EYES: Normal reaction of pupils, equal size. NOSE: Clear with pink turbinates. THROAT: No erythema or exudates. NECK: No masses, no JVD. CHEST: No chest wall deformity. LUNGS: Equal air entry with few scattered rhonchi, end expiratory wheeze. CVS: S1 and S2 normal with no audible murmur, regular rhythm. ABDOMEN: No hepatosplenomegaly, normal bowel sounds, no guarding or rigidity. SPINE: No scoliosis or deformity SKIN: No rashes CENTRAL NERVOUS SYSTEM: No focal deficits, tone is normal in all 4 extremities. EXTREMITIES: There is 1+ peripheral edema. No clubbing, no cyanosis. Peripheral pulses are intact. - Labs CBC & Chem 7: 10/12/24 04:47 10/12/24 04:47 Labs: Microbiology - Last 24 Hours (Table) 10/11/24 18:59 Gram Stain - Preliminary Sputum Sputum Culture - Preliminary 10/10/24 19:16 Blood Culture - Preliminary Blood Assessment and Plan Assessment: Acute exacerbation of mild intermittent chronic bronchial asthma, diastolic congestive heart failure. Procalcitonin negative. Remains on IV diuretics Leukocytosis secondary to above, improving Acute kidney injury secondary to dehydration, improving Hyponatremia secondary to above Hypokalemia secondary to above, improved Mild transaminitis secondary to above Chronic atrial fibrillation, anticoagulated with Eliquis Hypertension Hyperlipidemia History of gout History of mild intermittent chronic bronchial asthma Lifelong non-smoker History of congestive heart failure Plan: The patient was seen and evaluated Labs and medications reviewed Sputum culture pending Continue bronchodilators, steroids Continue IV diuretics Titrate down the FiO2 as tolerated Increase the use of the incentive spirometer Increase her activity as tolerated I have personally seen and examined the patient, performed the documentation and the assessment and plan as written. Number of minutes spent on the visit: 10 Dictation was produced using [employer] dictation software. Please excuse any grammatical, word or spelling errors.
[2024-10-13] MEDS: guaiFENesin 600 MG TABLET.ER PO PRN (21:01)
[2024-10-13] MEDS: traZODone HCL 50 MG TAB PO PRN (21:02)
[2024-10-14 09:58] LABS: HCT 32.3 % (37.2-46.3); HGB 11.2 g/dL (12.0-15.0); MCH 36.7 pg (27.0-32.0); MCHC 34.7 g/dL (32.0-37.0); MCV 105.9 FL (80.0-97.0); Mean Platelet Volume 10.4 FL (9.5-12.2); NRBC Per 100 WBC 0 X 10*3/uL (0.00-0.01); Platelet Count 345 X 10*3/uL (140-440); RBC 3.05 X 10*6/uL (4.10-5.20); RDW 13.4 % (11.5-14.5); WBC 10.82 X 10*3/uL (4.50-10.00)
[2024-10-14 10:34] LABS: BUN/Creat Ratio 49.11 Ratio (12.00-20.00); Blood Urea Nitrogen 44.2 mg/dL (9.0-27.0); Carbon Dioxide 31.4 mmol/L (21.6-31.8); Chloride 94 mmol/L (96-109); Glucose 129 mg/dL (70-110); Potassium 6.2 mmol/L (3.5-5.5); Sodium 133 mmol/L (135-145)
[2024-10-14 10:55] LABS: Basophils # (A) 0.02 X 10*3/uL (0.00-0.10); Basophils % (A) 0.2 %; Eosinophils # (A) 0.01 X 10*3/uL (0.04-0.35); Eosinophils % (A) 0.1 %; Lymphocytes # (A) 1.21 X 10*3/uL (0.90-5.00); Lymphocytes % (A) 11.2 %; Macrocytosis (M) 2+ (None Seen); Monocytes # (A) 0.36 X 10*3/uL (0.20-1.00); Monocytes % (A) 3.3 %; Neutrophils # (A) 9.04 X 10*3/uL (1.80-7.70); Neutrophils % (A) 83.5 %
--- NOTE | 2024-10-14 12:11 | P.PN ---
Subjective Progress Note Date: 10/14/24 This is a pleasant 88-year-old female patient with a known history of atrial fibrillation anticoagulated with Eliquis, congestive heart failure, asthma, gout, hyperlipidemia, hypertension, osteoarthritis, gastroesophageal reflux disease, lifelong non-smoker. She presented here to the emergency room last evening with a 1 week history of increasing shortness of breath, cough congestion, fever. Generalized weakness. Yellow productive sputum. Poor appetite. Chest x-ray reveals bibasilar infiltrates consistent with pneumonia versus fluid volume overload, atelectasis. EKG reveals atrial fibrillation with a controlled ventricular response. White count 14.3. Hemoglobin 12.5. Platelets 224. Sodium 129. Potassium 3.3. Bicarb 32. BUN 40. Creatinine 0.94. Glucose 114. AST 49. ALT 48. proBNP 4900. Viral screen negative. She is seen today in consultation in the emergency department. Currently sitting up on a stretcher. Awake and alert in no acute distress. Maintaining O2 saturations in the 90s on room air. She does have a very congested cough with some yellow productive sputum. She is afebrile. Hemodynamically stable. The patient is seen today October 12, 2024 in follow-up on the regular medical floor. She is awake and alert in no acute distress. Currently sitting up in a chair. Denies any worsening shortness of breath, cough or congestion. Doing a bit better today compared to yesterday. Maintaining O2 saturation in the 90s on 1 L/min per nasal cannula. Her procalcitonin was negative at 0.14. Her antibiotics will be discontinued. She remains on albuterol, Pulmicort, Solu- Medrol and Singulair. She is continued on Lasix 20 mg IV every 12 hours. Anticoagulated with Eliquis. White count 11.3. Hemoglobin 11.3. Platelets 230. Sodium 131. Potassium 3.7. Bicarb 29. BUN 38. Creatinine 0.9. Glucose 118. The patient is seen today October 13, 2024 in follow-up on the regular medical floor. She is currently sitting up in a chair at the bedside. Awake and alert in no acute distress. Denies any worsening shortness of breath, cough or congestion. She is maintaining good O2 saturations in the 90s on 2 L/min per nasal cannula. Follow-up chest x-ray reveals cardiomegaly. Bibasilar infiltrates. Suspect atelectasis. She is encouraged regarding the increased use of the incentive spirometer. Sputum cultures pending. The patient is seen today October 14, 2024 in follow-up on the regular medical floor. She is awake and alert in no acute distress. Sitting up in bed. Doing a bit better today compared to yesterday. Maintaining good O2 saturations in the high 90s on 2 L/min per nasal cannula. She is afebrile. Hemodynamically stable. Working with the incentive spirometer. Sputum culture revealed no growth. Blood culture revealed no growth. White count 10.8. Hemoglobin 11.2. Platelets 345. Sodium 133. Potassium 6.2. Bicarb 31. BUN 44. Creatinine 0.9. Glucose 129. She remains on albuterol, Solu-Medrol, Tessalon Perles, Si ngulair. Antibiotics in the form of ceftriaxone and doxycycline. Remains on IV diuretics. Currently in a -1250 balance. Objective - Vital Signs Vital signs: Vital Signs Temp 98.1 F 10/14/24 07:11 Pulse 100 10/14/24 08:22 Resp 17 10/14/24 07:11 BP 125/78 10/14/24 07:11 Pulse Ox 97 10/14/24 07:11 FiO2 Intake & Output 10/13/24 10/14/24 10/14/24 18:59 06:59 18:59 Output Total 1250 Balance -1250 Weight 98 kg Output: Urine 1250 Other: Voiding Method Diaper Diaper Diaper External Catheter External Catheter External Catheter # Voids 1 - Exam GENERAL EXAM: Alert, 88-year-old female, on 2 L nasal cannula, resting in bed, in no apparent distress. HEAD: Normocephalic. EYES: Normal reaction of pupils, equal size. NOSE: Clear with pink turbinates. THROAT: No erythema or exudates. NECK: No masses, no JVD. CHEST: No chest wall deformity. LUNGS: Equal air entry with few scattered rhonchi, end expiratory wheeze. CVS: S1 and S2 normal with no audible murmur, regular rhythm. ABDOMEN: No hepatosplenomegaly, normal bowel sounds, no guarding or rigidity. SPINE: No scoliosis or deformity SKIN: No rashes CENTRAL NERVOUS SYSTEM: No focal deficits, tone is normal in all 4 extremities. EXTREMITIES: There is 1+ peripheral edema. No clubbing, no cyanosis. Peripheral pulses are intact. - Labs CBC & Chem 7: 10/14/24 06:05 10/14/24 06:05 Labs: Abnormal Lab Results - Last 24 Hours (Table) 10/14/24 10/14/24 Range/Units 06:05 06:05 WBC 10.82 H (4.50-10.00) X 10*3/uL RBC 3.05 L (4.10-5.20) X 10*6/uL Hgb 11.2 L (12.0-15.0) g/dL Hct 32.3 L (37.2-46.3) % MCV 105.9 H (80.0-97.0) FL MCH 36.7 H (27.0-32.0) pg Immature Gran # 0.18 H (0.00-0.04) X 10*3/uL Neutrophils # 9.04 H (1.80-7.70) X 10*3/uL Eosinophils # 0.01 L (0.04-0.35) X 10*3/uL Macrocytosis (manual) 2+ A (None Seen) Sodium 133 L (135-145) mmol/L Potassium 6.2 A* (3.5-5.5) mmol/L Chloride 94 L (96-109) mmol/L BUN 44.2 H (9.0-27.0) mg/dL BUN/Creatinine Ratio 49.11 H (12.00-20.00) Ratio Glucose 129 H (70-110) mg/dL Microbiology - Last 24 Hours (Table) 10/11/24 18:59 Gram Stain - Final Sputum Sputum Culture - Final 10/10/24 19:16 Blood Culture - Preliminary Blood Assessment and Plan Assessment: Acute exacerbation of mild intermittent chronic bronchial asthma, diastolic congestive heart failure. Procalcitonin negative. Remains on IV diuretics Leukocytosis secondary to above, improving Acute kidney injury secondary to dehydration, improving Hyponatremia secondary to above Hypokalemia secondary to above, improved Mild transaminitis secondary to above Chronic atrial fibrillation, anticoagulated with Eliquis Hypertension Hyperlipidemia History of gout History of mild intermittent chronic bronchial asthma Lifelong non-smoker History of congestive heart failure Plan: The patient was seen and evaluated Labs and medications reviewed Sputum culture revealed no growth Procalcitonin was negative Recommend discontinuing antibiotics Continue bronchodilators, steroids Continue IV diuretics Increase the use of the incentive spirometer Increase her activity as tolerated I have personally seen and examined the patient, performed the documentation and the assessment and plan as written. Number of minutes spent on the visit: 10 Dictation was produced using [employer] dictation software. Please excuse any grammatical, word or spelling errors.
--- NOTE | 2024-10-14 19:44 | P.PN ---
Subjective Progress Note Date: 10/13/24 88-year-old lady with past medical history significant for hypertension, hyperlipidemia, A-fib, anasarca, GERD, essential tremor, systolic congestive heart failure, osteoporosis, chronic kidney disease, chronic anemia Who presented to the ER because of cough and shortness of breath. Patient stated she was all right a week back when she started noticing that she was having cough and shortness of breath. Patient was also having fever and chills. Patient was complaining of lethargic and weakness. Patient denied any chest pain. There was complaint of worsening swelling of lower extremities, patient at baseline takes oral diuretics. Patient went to see his PCP and they did a COVID test was negative, patient was prescribed oral antibiotics and Tessalon Perles. Patient continued to worsen with worsening shortness of breath. Because of this, patient brought to the ER Initial lab work done in the ER showed WBC 14.5, hemoglobin 12.7, platelet count 218, sodium 132, potassium 2.5, BUN 42, creatinine 1.06, glucose 101, AST 48, ALT 48, Influenza A not detected Influenza B not detected RSV not detected COVID-19 not detected EKG done in the ER showed heart rate of 86, irregular rhythm, no ST segment elevation or depression seen, no T-wave inversions seen. Chest x-ray done in the ER showed bibasilar atelectasis with infiltrates, pneumonia suspected Objective - Vital Signs Vital signs: Vital Signs Temp 97.5 F L 10/13/24 08:00 Pulse 96 10/13/24 09:38 Resp 18 10/13/24 08:00 BP 102/57 10/13/24 08:00 Pulse Ox 95 10/13/24 09:23 FiO2 Intake & Output 10/12/24 10/13/24 10/13/24 18:59 06:59 18:59 Intake Total 50 Output Total 700 Balance 50 -700 Weight 97 kg Intake: Intake, IV Titration 50 Amount cefTRIAXone 2 gm In 50 Sodium Chloride 0.9% 50 ml @ 100 mls/hr IVPB Q24HR [facility] Rx#:[id number] Output: Urine 700 Other: Voiding Method External Catheter External Catheter Diaper External Catheter # Voids 1 # Bowel Movements 1 - Exam GENERAL: The patient is alert and oriented x3, ill looking HEENT: Pupils are round and equally reacting to light. EOMI. No scleral icterus. No conjunctival pallor. Normocephalic, atraumatic. No pharyngeal erythema. No thyromegaly. CARDIOVASCULAR: S1 and S2 present. No murmurs, rubs, or gallops. PULMONARY: Diminished breath sounds at the bases bilaterally, no wheezing or crackles. ABDOMEN: Soft, nontender, nondistended, normoactive bowel sounds. No palpable organomegaly. MUSCULOSKELETAL: No joint swelling or deformity. EXTREMITIES: No cyanosis, clubbing, or pedal edema. NEUROLOGICAL: Gross neurological examination did not reveal any focal deficits. SKIN: No rashes. - Labs CBC & Chem 7: 10/14/24 06:05 10/14/24 13:10 Labs: Microbiology - Last 24 Hours (Table) 10/11/24 18:59 Gram Stain - Preliminary Sputum Sputum Culture - Preliminary 10/10/24 19:16 Blood Culture - Preliminary Blood Assessment and Plan Assessment: Bacterial pneumonia, failed outpatient treatment Leukocytosis Hyponatremia Hypokalemia Atherosclerotic heart disease Chronic atrial fibrillation History of asthma History of anemia Essential tremor restless leg syndrome Hyperlipidemia GERD Osteoporosis Monitor vital signs Monitor CBC Monitor CMP Follow-up on blood cultures Follow-up sputum culture Continue IV Rocephin azithromycin Continue IV Lasix Pulmonology following
--- NOTE | 2024-10-14 19:46 | P.PN ---
Subjective Progress Note Date: 10/14/24 88-year-old lady with past medical history significant for hypertension, hyperlipidemia, A-fib, anasarca, GERD, essential tremor, systolic congestive heart failure, osteoporosis, chronic kidney disease, chronic anemia Who presented to the ER because of cough and shortness of breath. Patient stated she was all right a week back when she started noticing that she was having cough and shortness of breath. Patient was also having fever and chills. Patient was complaining of lethargic and weakness. Patient denied any chest pain. There was complaint of worsening swelling of lower extremities, patient at baseline takes oral diuretics. Patient went to see his PCP and they did a COVID test was negative, patient was prescribed oral antibiotics and Tessalon Perles. Patient continued to worsen with worsening shortness of breath. Because of this, patient brought to the ER Initial lab work done in the ER showed WBC 14.5, hemoglobin 12.7, platelet count 218, sodium 132, potassium 2.5, BUN 42, creatinine 1.06, glucose 101, AST 48, ALT 48, Influenza A not detected Influenza B not detected RSV not detected COVID-19 not detected EKG done in the ER showed heart rate of 86, irregular rhythm, no ST segment elevation or depression seen, no T-wave inversions seen. Chest x-ray done in the ER showed bibasilar atelectasis with infiltrates, pneumonia suspected 10/14/2024 Patient is seen and evaluated in follow-up on the regular medical floor. She is awake and alert in no acute distress. Sitting up in bed. Doing a bit better today compared to yesterday. Maintaining good O2 saturations in the high 90s on 2 L/min per nasal cannula. She is afebrile. Hemodynamically stable. Working with the incentive spirometer. Sputum culture revealed no growth. Blood culture revealed no growth. White count 10.8. Hemoglobin 11.2. Platelets 345. Sodium 133. Potassium 6.2. Bicarb 31. BUN 44. Creatinine 0.9. Glucose 129. She remains on albuterol, Solu-Medrol, Tessalon Perles, Singulair. Antibiotics in the form of ceftriaxone and doxycycline. Remains on IV diuretics. -- Patient did receive potassium supplement of 40 mEq and Aldactone this morning despite elevated potassium levels -I have discontinued potassium supplement; ordering stat potassium level with plans to treat accordingly Objective - Vital Signs Vital signs: Vital Signs Temp 98.1 F 10/14/24 07:11 Pulse 100 10/14/24 08:22 Resp 17 10/14/24 07:11 BP 125/78 10/14/24 07:11 Pulse Ox 97 10/14/24 07:11 FiO2 Intake & Output 10/13/24 10/14/24 10/14/24 18:59 06:59 18:59 Output Total 1250 Balance -1250 Weight 98 kg Output: Urine 1250 Other: Voiding Method Diaper Diaper Diaper External Catheter External Catheter External Catheter # Voids 1 - Exam GENERAL: The patient is alert and oriented x3, ill looking HEENT: Pupils are round and equally reacting to light. EOMI. No scleral icterus. No conjunctival pallor. Normocephalic, atraumatic. No pharyngeal erythema. No thyromegaly. CARDIOVASCULAR: S1 and S2 present. No murmurs, rubs, or gallops. PULMONARY: Diminished breath sounds at the bases bilaterally, no wheezing or crackles. ABDOMEN: Soft, nontender, nondistended, normoactive bowel sounds. No palpable organomegaly. MUSCULOSKELETAL: No joint swelling or deformity. EXTREMITIES: No cyanosis, clubbing, or pedal edema. NEUROLOGICAL: Gross neurological examination did not reveal any focal deficits. SKIN: No rashes. - Labs CBC & Chem 7: 10/14/24 06:05 10/14/24 13:10 Labs: Abnormal Lab Results - Last 24 Hours (Table) 10/14/24 10/14/24 Range/Units 06:05 06:05 WBC 10.82 H (4.50-10.00) X 10*3/uL RBC 3.05 L (4.10-5.20) X 10*6/uL Hgb 11.2 L (12.0-15.0) g/dL Hct 32.3 L (37.2-46.3) % MCV 105.9 H (80.0-97.0) FL MCH 36.7 H (27.0-32.0) pg Immature Gran # 0.18 H (0.00-0.04) X 10*3/uL Neutrophils # 9.04 H (1.80-7.70) X 10*3/uL Eosinophils # 0.01 L (0.04-0.35) X 10*3/uL Macrocytosis (manual) 2+ A (None Seen) Sodium 133 L (135-145) mmol/L Potassium 6.2 A* (3.5-5.5) mmol/L Chloride 94 L (96-109) mmol/L BUN 44.2 H (9.0-27.0) mg/dL BUN/Creatinine Ratio 49.11 H (12.00-20.00) Ratio Glucose 129 H (70-110) mg/dL Microbiology - Last 24 Hours (Table) 10/11/24 18:59 Gram Stain - Final Sputum Sputum Culture - Final 10/10/24 19:16 Blood Culture - Preliminary Blood Assessment and Plan Assessment: Bacterial pneumonia, failed outpatient treatment Leukocytosis Hyponatremia Hypokalemia Atherosclerotic heart disease Chronic atrial fibrillation History of asthma History of anemia Essential tremor restless leg syndrome Hyperlipidemia GERD Osteoporosis Monitor vital signs Monitor CBC Monitor CMP Follow-up on blood cultures Follow-up sputum culture Continue IV Rocephin azithromycin Continue IV Lasix Pulmonology following
[2024-10-14] MEDS: ALBUTEROL NEB (CONC) 2.5 MG/0.5 ML INHALATION ONE (20:22)
--- NOTE | 2024-10-14 21:39 | XR ---
EXAMINATION TYPE: XR chest 1V portable DATE OF EXAM: 10/14/2024 9:27 PM COMPARISON: Chest radiographs from 10/13/2024 CLINICAL INDICATION: Female, 88 years old with history of aspiration, tachycardia; [facility] TECHNIQUE: XR chest 1V portable Frontal view of the chest. FINDINGS: Lungs/Pleura: There is no evidence of pleural effusion, focal consolidation, or pneumothorax. Pulmonary vascularity: Unremarkable. Heart/mediastinum: Cardiomediastinal silhouette is unremarkable. Musculoskeletal: No acute osseous pathology. IMPRESSION: No finding to definitively say aspiration occurred, stable exam. [facility], , 10/14/2024 9:37 PM
[2024-10-14] MEDS: SODIUM ZIRCONIUM CYCLOSILICATE 10 GM PACKET PO ONE (22:36)
[2024-10-14] MEDS: CALCIUM GLUCONATE IN NACL 1 GM in SALINE 1 100ML.BAG IVPB ONE (22:37)
[2024-10-14 23:13] LABS: Glucose,Whole Blood 178 mg/dL (70-110)
[2024-10-14] MEDS: INSULIN REGULAR 100 UNIT/ML VIAL (IV) IV ONE (23:13)
[2024-10-14] MEDS: DEXTROSE 50% SYRINGE 50 ML IVP ONE (23:13)
[2024-10-15 00:17] LABS: Glucose,Whole Blood 142 mg/dL (70-110)
[2024-10-15 12:29] LABS: Basophils % (A) 0 %; Eosinophils # (A) 0.1 k/uL (0-0.7); Eosinophils % (A) 1 %; HCT 34.1 % (34.0-46.0); HGB 11.5 gm/dL (11.4-16.0); Lymphocytes # (A) 1.9 k/uL (1.0-4.8); Lymphocytes % (A) 15 %; MCH 36.9 pg (25.0-35.0); MCHC 33.7 g/dL (31.0-37.0); MCV 109.7 fL (80.0-100.0); Macrocytosis Marked; Mean Platelet Volume 7.6; Monocytes # (A) 0.6 k/uL (0-1.0); Monocytes % (A) 5 %; Neutrophils # (A) 9.7 k/uL (1.3-7.7); Neutrophils % (A) 78 %; Platelet Count 399 k/uL (150-450); RBC 3.11 m/uL (3.80-5.40); RDW 12.8 % (11.5-15.5); WBC 12.5 k/uL (3.8-10.6)
--- NOTE | 2024-10-15 12:37 | P.PN ---
Subjective Progress Note Date: 10/15/24 This is a pleasant 88-year-old female patient with a known history of atrial fibrillation anticoagulated with Eliquis, congestive heart failure, asthma, gout, hyperlipidemia, hypertension, osteoarthritis, gastroesophageal reflux disease, lifelong non-smoker. She presented here to the emergency room last evening with a 1 week history of increasing shortness of breath, cough congestion, fever. Generalized weakness. Yellow productive sputum. Poor appetite. Chest x-ray reveals bibasilar infiltrates consistent with pneumonia versus fluid volume overload, atelectasis. EKG reveals atrial fibrillation with a controlled ventricular response. White count 14.3. Hemoglobin 12.5. Platelets 224. Sodium 129. Potassium 3.3. Bicarb 32. BUN 40. Creatinine 0.94. Glucose 114. AST 49. ALT 48. proBNP 4900. Viral screen negative. She is seen today in consultation in the emergency department. Currently sitting up on a stretcher. Awake and alert in no acute distress. Maintaining O2 saturations in the 90s on room air. She does have a very congested cough with some yellow productive sputum. She is afebrile. Hemodynamically stable. The patient is seen today October 12, 2024 in follow-up on the regular medical floor. She is awake and alert in no acute distress. Currently sitting up in a chair. Denies any worsening shortness of breath, cough or congestion. Doing a bit better today compared to yesterday. Maintaining O2 saturation in the 90s on 1 L/min per nasal cannula. Her procalcitonin was negative at 0.14. Her antibiotics will be discontinued. She remains on albuterol, Pulmicort, Solu- Medrol and Singulair. She is continued on Lasix 20 mg IV every 12 hours. Anticoagulated with Eliquis. White count 11.3. Hemoglobin 11.3. Platelets 230. Sodium 131. Potassium 3.7. Bicarb 29. BUN 38. Creatinine 0.9. Glucose 118. The patient is seen today October 13, 2024 in follow-up on the regular medical floor. She is currently sitting up in a chair at the bedside. Awake and alert in no acute distress. Denies any worsening shortness of breath, cough or congestion. She is maintaining good O2 saturations in the 90s on 2 L/min per nasal cannula. Follow-up chest x-ray reveals cardiomegaly. Bibasilar infiltrates. Suspect atelectasis. She is encouraged regarding the increased use of the incentive spirometer. Sputum cultures pending. The patient is seen today October 14, 2024 in follow-up on the regular medical floor. She is awake and alert in no acute distress. Sitting up in bed. Doing a bit better today compared to yesterday. Maintaining good O2 saturations in the high 90s on 2 L/min per nasal cannula. She is afebrile. Hemodynamically stable. Working with the incentive spirometer. Sputum culture revealed no growth. Blood culture revealed no growth. White count 10.8. Hemoglobin 11.2. Platelets 345. Sodium 133. Potassium 6.2. Bicarb 31. BUN 44. Creatinine 0.9. Glucose 129. She remains on albuterol, Solu-Medrol, Tessalon Perles, Si ngulair. Antibiotics in the form of ceftriaxone and doxycycline. Remains on IV diuretics. Currently in a -1250 balance. The patient is seen today October 15, 2024 in follow-up on the regular medical floor. She is resting comfortably in bed. Awake and alert in no acute distress. Chest x-ray showing improved aeration. She is maintaining O2 saturations in the 90s on 2 L/min per nasal cannula. She continues with a dry nonproductive cough. No fever or chills. She remains on albuterol, Pulmicort inhalations, Singulair, Solu-Medrol. Antibiotics in the form of ceftriaxone and Vibramycin. Continued on IV diuretics. Continued on Mucinex as needed. Objective - Vital Signs Vital signs: Vital Signs Temp 98.7 F 10/15/24 06:58 Pulse 84 10/15/24 09:03 Resp 15 10/15/24 06:58 BP 161/85 10/15/24 06:58 Pulse Ox 98 10/15/24 06:58 FiO2 Intake & Output 10/14/24 10/15/24 10/15/24 18:59 06:59 18:59 Output Total 950 600 Balance -950 -600 Weight 98 kg Output: Urine 950 600 Other: Voiding Method Diaper Diaper Incontinent External Catheter External Catheter External Catheter # Voids 1 # Bowel Movements 1 1 - Exam GENERAL EXAM: Alert, pleasant 88-year-old female, on 2 L nasal cannula, in no apparent distress. HEAD: Normocephalic. EYES: Normal reaction of pupils, equal size. NOSE: Clear with pink turbinates. THROAT: No erythema or exudates. NECK: No masses, no JVD. CHEST: No chest wall deformity. LUNGS: Equal air entry with few scattered rhonchi, end expiratory wheeze. CVS: S1 and S2 normal with no audible murmur, regular rhythm. ABDOMEN: No hepatosplenomegaly, normal bowel sounds, no guarding or rigidity. SPINE: No scoliosis or deformity SKIN: No rashes CENTRAL NERVOUS SYSTEM: No focal deficits, tone is normal in all 4 extremities. EXTREMITIES: There is 1+ peripheral edema. No clubbing, no cyanosis. Peripheral pulses are intact. - Labs CBC & Chem 7: 10/14/24 06:05 10/14/24 23:49 Labs: Abnormal Lab Results - Last 24 Hours (Table) 10/14/24 10/14/24 10/14/24 Range/Units 13:10 23:12 23:49 Potassium 6.2 H* 5.4 H (3.5-5.1) mmol/L POC Glucose (mg/dL) 178 H (70-110) mg/dL 10/15/24 Range/Units 00:16 Potassium (3.5-5.1) mmol/L POC Glucose (mg/dL) 142 H (70-110) mg/dL Microbiology - Last 24 Hours (Table) 10/11/24 18:59 Gram Stain - Final Sputum Sputum Culture - Final Assessment and Plan Assessment: Acute exacerbation of mild intermittent chronic bronchial asthma, diastolic congestive heart failure. Procalcitonin negative. Remains on IV diuretics Leukocytosis secondary to above, improving Acute kidney injury secondary to dehydration, improving Hyponatremia secondary to above Hypokalemia secondary to above, improved Mild transaminitis secondary to above Chronic atrial fibrillation, anticoagulated with Eliquis Hypertension Hyperlipidemia History of gout History of mild intermittent chronic bronchial asthma Lifelong non-smoker History of congestive heart failure Plan: The patient was seen and evaluated Labs and medications reviewed Sputum culture revealed no growth Procalcitonin was negative Antibiotics discontinued Continue bronchodilators, steroids Continue IV diuretics Increase the use of the incentive spirometer Probable discharge in the a.m. I have personally seen and examined the patient, performed the documentation and the assessment and plan as written. Number of minutes spent on the visit: 10 Dictation was produced using [employer] software. Please excuse any grammatical, word or spelling errors.
[2024-10-15 12:39] LABS: African American GFR (CKD) 63 (>60 ml/min/1.73 sqM); Anion Gap 3 mmol/L; Blood Urea Nitrogen 46 mg/dL (7-17); Carbon Dioxide 38 mmol/L (22-30); Chloride 89 mmol/L (98-107); Glucose 105 mg/dL (74-99); Non-African American GFR(CKD) 54 (>60 ml/min/1.73 sqM); Potassium 5.2 mmol/L (3.5-5.1); Sodium 130 mmol/L (137-145)
--- NOTE | 2024-10-15 16:20 | P.PN ---
Subjective Progress Note Date: 10/15/24 88-year-old lady with past medical history significant for hypertension, hyperlipidemia, A-fib, anasarca, GERD, essential tremor, systolic congestive heart failure, osteoporosis, chronic kidney disease, chronic anemia Who presented to the ER because of cough and shortness of breath. Patient stated she was all right a week back when she started noticing that she was having cough and shortness of breath. Patient was also having fever and chills. Patient was complaining of lethargic and weakness. Patient denied any chest pain. There was complaint of worsening swelling of lower extremities, patient at baseline takes oral diuretics. Patient went to see his PCP and they did a COVID test was negative, patient was prescribed oral antibiotics and Tessalon Perles. Patient continued to worsen with worsening shortness of breath. Because of this, patient brought to the ER Initial lab work done in the ER showed WBC 14.5, hemoglobin 12.7, platelet count 218, sodium 132, potassium 2.5, BUN 42, creatinine 1.06, glucose 101, AST 48, ALT 48, Influenza A not detected Influenza B not detected RSV not detected COVID-19 not detected EKG done in the ER showed heart rate of 86, irregular rhythm, no ST segment elevation or depression seen, no T-wave inversions seen. Chest x-ray done in the ER showed bibasilar atelectasis with infiltrates, pneumonia suspected 10/14/2024 Patient is seen and evaluated in follow-up on the regular medical floor. She is awake and alert in no acute distress. Sitting up in bed. Doing a bit better today compared to yesterday. Maintaining good O2 saturations in the high 90s on 2 L/min per nasal cannula. She is afebrile. Hemodynamically stable. Working with the incentive spirometer. Sputum culture revealed no growth. Blood culture revealed no growth. White count 10.8. Hemoglobin 11.2. Platelets 345. Sodium 133. Potassium 6.2. Bicarb 31. BUN 44. Creatinine 0.9. Glucose 129. She remains on albuterol, Solu-Medrol, Tessalon Perles, Singulair. Antibiotics in the form of ceftriaxone and doxycycline. Remains on IV diuretics. -- Patient did receive potassium supplement of 40 mEq and Aldactone this morning despite elevated potassium levels -I have discontinued potassium supplement; ordering stat potassium level with plans to treat accordingly 10/15/2024 Patient is seen and evaluated in follow-up on the regular medical floor. She is resting comfortably in bed. Awake and alert in no acute distress. Chest x-ray showing improved aeration. She is maintaining O2 saturations in the 90s on 2 L/min per nasal cannula. She continues with a dry nonproductive cough. No fever or chills. She remains on albuterol, Pulmicort inhalations, Singulair, Solu-Medrol. Antibiotics in the form of ceftriaxone and Vibramycin. Continued on IV diuretics. Continued on Mucinex as needed. Lab review shows WBC 12.5, hemoglobin of 11.5 and platelet count of 399, sodium 130, potassium 5.2, BUNs/creatinine of 46/0.94 --Potassium supplement of 40 mEq twice daily has been discontinued; Aldactone is currently on hold -- Potassium is down to 5.2 from 6.2 yesterday -Recommend to review potassium levels tomorrow morning and start Aldactone on a lower dose with continued monitoring of potassium levels Objective - Vital Signs Vital signs: Vital Signs Temp 98.7 F 10/15/24 06:58 Pulse 84 10/15/24 09:03 Resp 15 10/15/24 06:58 BP 161/85 10/15/24 06:58 Pulse Ox 98 10/15/24 06:58 FiO2 Intake & Output 10/14/24 10/15/24 10/15/24 18:59 06:59 18:59 Output Total 950 600 Balance -950 -600 Weight 98 kg Output: Urine 950 600 Other: Voiding Method Diaper Diaper Incontinent External Catheter External Catheter External Catheter # Voids 1 # Bowel Movements 1 1 - Exam GENERAL: The patient is alert and oriented x3, ill looking HEENT: Pupils are round and equally reacting to light. EOMI. No scleral icterus. No conjunctival pallor. Normocephalic, atraumatic. No pharyngeal erythema. No thyromegaly. CARDIOVASCULAR: S1 and S2 present. No murmurs, rubs, or gallops. PULMONARY: Diminished breath sounds at the bases bilaterally, no wheezing or crackles. ABDOMEN: Soft, nontender, nondistended, normoactive bowel sounds. No palpable organomegaly. MUSCULOSKELETAL: No joint swelling or deformity. EXTREMITIES: No cyanosis, clubbing, or pedal edema. NEUROLOGICAL: Gross neurological examination did not reveal any focal deficits. SKIN: No rashes. - Labs CBC & Chem 7: 10/15/24 11:58 10/15/24 11:58 Labs: Abnormal Lab Results - Last 24 Hours (Table) 10/14/24 10/14/24 10/14/24 Range/Units 13:10 23:12 23:49 Potassium 6.2 H* 5.4 H (3.5-5.1) mmol/L POC Glucose (mg/dL) 178 H (70-110) mg/dL 10/15/24 Range/Units 00:16 Potassium (3.5-5.1) mmol/L POC Glucose (mg/dL) 142 H (70-110) mg/dL Microbiology - Last 24 Hours (Table) 10/11/24 18:59 Gram Stain - Final Sputum Sputum Culture - Final Assessment and Plan Assessment: Bacterial pneumonia, failed outpatient treatment Leukocytosis Hyponatremia Hypokalemia Atherosclerotic heart disease Chronic atrial fibrillation History of asthma History of anemia Essential tremor restless leg syndrome Hyperlipidemia GERD Osteoporosis Monitor vital signs Monitor CBC Monitor CMP Follow-up on blood cultures Follow-up sputum culture Continue IV Rocephin azithromycin Continue IV Lasix Pulmonology following
[2024-10-16 07:41] VITALS: BP 106/63; RESP 18; TEMP 97.1
[2024-10-16 08:38] LABS: Basophils # (A) 0.03 X 10*3/uL (0.00-0.10); Basophils % (A) 0.3 %; Eosinophils # (A) 0.02 X 10*3/uL (0.04-0.35); Eosinophils % (A) 0.2 %; HCT 34.8 % (37.2-46.3); HGB 11.2 g/dL (12.0-15.0); Lymphocytes # (A) 1.32 X 10*3/uL (0.90-5.00); Lymphocytes % (A) 11.7 %; MCHC 32.2 g/dL (32.0-37.0); MCV 108.8 FL (80.0-97.0); Monocytes # (A) 0.42 X 10*3/uL (0.20-1.00); Monocytes % (A) 3.7 %; NRBC Per 100 WBC 0 X 10*3/uL (0.00-0.01); Neutrophils # (A) 9.16 X 10*3/uL (1.80-7.70); Neutrophils % (A) 81.5 %; Platelet Count 437 X 10*3/uL (140-440); RDW 13.9 % (11.5-14.5); WBC 11.24 X 10*3/uL (4.50-10.00)
[2024-10-16 09:09] VITALS: PULSE 84
[2024-10-16 09:10] LABS: Blood Urea Nitrogen 37.8 mg/dL (9.0-27.0); Calcium 9.1 mg/dL (8.7-10.3); Carbon Dioxide 32.6 mmol/L (21.6-31.8); Chloride 94 mmol/L (96-109); Glucose 133 mg/dL (70-110); Potassium 5.4 mmol/L (3.5-5.5); Sodium 133 mmol/L (135-145)
--- NOTE | 2024-10-16 13:10 | P.DS ---
Providers Date of admission: 10/10/24 21:28 Expected date of discharge: 10/16/24 Attending physician: Racheal Ramirez Consults: 10/11/24 09:34 Consult Physician Routine Consulting Provider: Danie Brush Consult Reason/Comments: Pneumonia Do you want consulting provider notified?: Yes Primary care physician: Bharath Hermosillo [facility] Course: Final diagnosis Bacterial pneumonia, failed outpatient treatment, ruled out, procalcitonin is negative Acute exacerbation of mild intermittent chronic bronchial asthma along with diastolic CHF exacerbation Leukocytosis, trending down Hyponatremia likely secondary to poor oral intake and dehydration Hyperkalemia, recommend low potassium diet History of atherosclerotic heart disease History of chronic atrial fibrillation History of asthma History of anemia Essential tremor restless leg syndrome Hyperlipidemia GERD Osteoporosis Obesity with a BMI of 36.1 GI prophylaxis DVT prophylaxis Full code Discharge disposition Patient is being discharged in a stable condition with guarded prognosis to [facility]. Patient will follow-up with Dr. Hermosillo in the outpatient setting upon discharge. Patient is to continue with prednisone taper and outpatient follow- up with pulmonary Dr. Helton as scheduled. Continue holding metolazone and Aldactone for now and follow-up with repeat CBC, CMP, magnesium in 2 to 3 days. Total time taken is greater than 35 minutes. Hospital course This is a 88-year-old female who was recently admitted with concerns of bacterial pneumonia with failure of outpatient treatment maintained on antibiotics with pulmonary following. Patient also continued on diuresis and will transition to Bumex recommend holding metolazone for now until repeat labs are evaluated. Patient procalcitonin was normal and has completed short course of antibiotics. Per pulmonary patient will not require antibiotics on discharge. Recommend monitoring fluid intake and elevating lower extremities while at rest. Continue with compression stockings in the outpatient setting. Home medications reviewed and resumed as appropriate and also recommend low potassium diet as patient's potassium is 5.4. Please refer to other consultation notes for further HPI. Currently no reports of chest pain, shortness of breath, or palpitations. Patient is afebrile. No reports of nausea or vomiting and patient is tolerating diet. Patient will be going to [facility] today. Guarded prognosis and high risk for readmission given patient significant comorbidities and age. Physical exam: Gen: This is a 88-year-old female who is awake, alert and oriented x 3, well- developed, elderly appearing, obese HEENT: Head is atraumatic, normocephalic. Pupils equal, round. Sclerae is anicteric. NECK: Supple. No JVD. No lymphadenopathy. No thyromegaly. LUNGS: Diminished breath sounds bilaterally otherwise clear to auscultation. No wheezes or rhonchi. No intercostal retractions. HEART: S1, S2 are muffled ABDOMEN: Soft. Bowel sounds are present. No masses. No tenderness. EXTREMITIES: No pedal edema. No calf tenderness. Lower extremity edema bilaterally significantly improved NEUROLOGICAL: Patient is awake, alert and oriented x3. Cranial nerves 2 through 12 are grossly intact. Diffusely weak Please refer to medication reconciliation sheet for a list of medications. The impression and plan of care has been dictated by Laurel Gilbert, Nurse Practitioner as directed. Dr. James MD I have performed a history and examination and MDM of this patient, discussed the same with the dictator, and agree with the dictator's assessment and plan as written ,documented as a scribe. Based on total visit time, I have performed more than 50% of the visit. Patient Condition at Discharge: Stable Plan - Discharge Summary Discharge Rx Participant: No New Discharge Prescriptions: New Acetaminophen Tab [Tylenol] 650 mg PO Q6HR PRN tab PRN Reason: Mild Pain Or Fever > 100.5 predniSONE See Taper PO DIRECTED #30 tab Continue Ferrous Sulfate [Iron (65 MG Elemental)] 325 mg PO W/SUPPER Fluticasone Nasal [place] [Flonase Nasal [place]] 1 spr EA NOSTRIL DAILY PRN PRN Reason: Allergy Symptoms guaiFENesin [Mucinex] 600 mg PO Q12HR PRN PRN Reason: CONGESTION/COUGH Isosorbide Mononitrate ER [Imdur] 30 mg PO DAILY Metoprolol Tartrate [Lopressor] 25 mg PO BID Albuterol Inhaler [Ventolin Hfa Inhaler] 1 - 2 puff INHALATION RT-QID PRN PRN Reason: Shortness Of Breath Montelukast [Singulair] 10 mg PO HS rOPINIRole HCL [Requip] 1 mg PO BID@1700,2100 Primidone 100 mg PO BID-W/MEALS Pantoprazole [Protonix] 40 mg PO W/SUPPER Vit C/E/Zn/Coppr/Lutein/Zeaxan [Preservision Areds 2 Softgel] 1 cap PO BID@1200,2100 [place]-3/Dha/Epa/Fish Oil [[place]-3 Fish Oil 1,000 mg Sfgl] 1 cap PO W/LUNCH Benzonatate [Tessalon Perles] 100 mg PO TID Budesonide [Pulmicort] 0.5 mg INHALATION RT-BID PRN PRN Reason: Shortness Of Breath Rosuvastatin [Crestor] 10 mg PO HS Cetirizine HCl [Zyrtec] 10 mg PO W/LUNCH L.acidoph,Paracasei, B.lactis [Probiotic] 1 cap PO W/SUPPER Bumetanide [BUMEX] 3 mg PO BID@0800,1200 Apixaban [Eliquis] 5 mg PO BID allopurinoL 100 mg PO DAILY Potassium Chloride ER [K-Dur 20] 40 meq PO BID Brimonidine Tartrate [Alphagan P 0.2% Ophth Soln] 1 drop BOTH EYES BID traZODone HCL [Desyrel] 50 mg PO HS PRN PRN Reason: Insomnia Multivitamins, Thera [Multivitamin (formulary)] 1 tab PO W/LUNCH Cholecalciferol (Vitamin D3) [Vitamin D3 (50 Mcg = 2000 Iu) Chew Tab] 50 mcg PO W/LUNCH Discontinued metOLazone [Zaroxolyn] 2.5 mg PO Q2D Calcium Carbonate 1,000 mg PO DAILY methylPREDNISolone Dose Pack [Medrol Dose Pack] See Taper PO DIRECTED Doxycycline Hyclate 100 mg PO BID Spironolactone [Aldactone] 25 mg PO DAILY Discharge Medication List Ferrous Sulfate [Iron (65 MG Elemental)] 325 mg PO W/SUPPER 06/04/16 [History] Fluticasone Nasal [place] [Flonase Nasal [place]] 1 spr EA NOSTRIL DAILY PRN 06/04/16 [History] Isosorbide Mononitrate ER [Imdur] 30 mg PO DAILY 06/04/16 [History] Metoprolol Tartrate [Lopressor] 25 mg PO BID 06/04/16 [History] guaiFENesin [Mucinex] 600 mg PO Q12HR PRN 06/04/16 [History] Albuterol Inhaler [Ventolin Hfa Inhaler] 1 - 2 puff INHALATION RT-QID PRN 01/26/24 [History] Apixaban [Eliquis] 5 mg PO BID 01/26/24 [History] Brimonidine Tartrate [Alphagan P 0.2% Ophth Soln] 1 drop BOTH EYES BID 01/26/24 [History] Budesonide [Pulmicort] 0.5 mg INHALATION RT-BID PRN 01/26/24 [History] Bumetanide [BUMEX] 3 mg PO BID@0800,1200 01/26/24 [History] Cetirizine HCl [Zyrtec] 10 mg PO W/LUNCH 01/26/24 [History] L.acidoph,Paracasei, B.lactis [Probiotic] 1 cap PO W/SUPPER 01/26/24 [History] Montelukast [Singulair] 10 mg PO HS 01/26/24 [History] Pantoprazole [Protonix] 40 mg PO W/SUPPER 01/26/24 [History] Potassium Chloride ER [K-Dur 20] 40 meq PO BID 01/26/24 [History] Primidone 100 mg PO BID-W/MEALS 01/26/24 [History] Rosuvastatin [Crestor] 10 mg PO HS 01/26/24 [History] Vit C/E/Zn/Coppr/Lutein/Zeaxan [Preservision Areds 2 Softgel] 1 cap PO BID@1200,2100 01/26/24 [History] allopurinoL 100 mg PO DAILY 01/26/24 [History] rOPINIRole HCL [Requip] 1 mg PO BID@1700,2100 01/26/24 [History] Benzonatate [Tessalon Perles] 100 mg PO TID 10/11/24 [History] Cholecalciferol (Vitamin D3) [Vitamin D3 (50 Mcg = 2000 Iu) Chew Tab] 50 mcg PO W/LUNCH 10/11/24 [History] Multivitamins, Thera [Multivitamin (formulary)] 1 tab PO W/LUNCH 10/11/24 [History] [place]-3/Dha/Epa/Fish Oil [[place]-3 Fish Oil 1,000 mg Sfgl] 1 cap PO W/LUNCH 10/11/24 [History] traZODone HCL [Desyrel] 50 mg PO HS PRN 10/11/24 [History] Acetaminophen Tab [Tylenol] 650 mg PO Q6HR PRN tab 10/16/24 [Rx] predniSONE See Taper PO DIRECTED #30 tab 10/16/24 [Rx] Follow up Appointment(s)/Referral(s): Bharath Hermosillo MD [Primary Care Provider] - 1-2 days ([facility] please call for follow-up appointment.) Ilya Moreno, [NON-STAFF] - As Needed Ambulatory/Diagnostic Orders: Basic Metabolic Panel [LAB.AMB] Time Frame: 3 Days, Location: None Selected Activity/Diet/Wound Care/Special Instructions: Patient is going to [facility] Activity as tolerated Continue with Bumex and hold metolazone for now, follow-up on repeat labs Continue a prednisone taper Continue with heart healthy diet Follow-up pulmonary outpatient Encourage incentive spirometer use 10 times every hour while awake Continue with zinc barrier paste to the buttock area with offloading Discharge Disposition: TRANSFER TO SNF/ECF
--- NOTE | 2024-10-16 14:28 | P.PN ---
Subjective Progress Note Date: 10/16/24 This is a pleasant 88-year-old female patient with a known history of atrial fibrillation anticoagulated with Eliquis, congestive heart failure, asthma, gout, hyperlipidemia, hypertension, osteoarthritis, gastroesophageal reflux disease, lifelong non-smoker. She presented here to the emergency room last evening with a 1 week history of increasing shortness of breath, cough congestion, fever. Generalized weakness. Yellow productive sputum. Poor appetite. Chest x-ray reveals bibasilar infiltrates consistent with pneumonia versus fluid volume overload, atelectasis. EKG reveals atrial fibrillation with a controlled ventricular response. White count 14.3. Hemoglobin 12.5. Platelets 224. Sodium 129. Potassium 3.3. Bicarb 32. BUN 40. Creatinine 0.94. Glucose 114. AST 49. ALT 48. proBNP 4900. Viral screen negative. She is seen today in consultation in the emergency department. Currently sitting up on a stretcher. Awake and alert in no acute distress. Maintaining O2 saturations in the 90s on room air. She does have a very congested cough with some yellow productive sputum. She is afebrile. Hemodynamically stable. The patient is seen today October 12, 2024 in follow-up on the regular medical floor. She is awake and alert in no acute distress. Currently sitting up in a chair. Denies any worsening shortness of breath, cough or congestion. Doing a bit better today compared to yesterday. Maintaining O2 saturation in the 90s on 1 L/min per nasal cannula. Her procalcitonin was negative at 0.14. Her antibiotics will be discontinued. She remains on albuterol, Pulmicort, Solu- Medrol and Singulair. She is continued on Lasix 20 mg IV every 12 hours. Anticoagulated with Eliquis. White count 11.3. Hemoglobin 11.3. Platelets 230. Sodium 131. Potassium 3.7. Bicarb 29. BUN 38. Creatinine 0.9. Glucose 118. The patient is seen today October 13, 2024 in follow-up on the regular medical floor. She is currently sitting up in a chair at the bedside. Awake and alert in no acute distress. Denies any worsening shortness of breath, cough or congestion. She is maintaining good O2 saturations in the 90s on 2 L/min per nasal cannula. Follow-up chest x-ray reveals cardiomegaly. Bibasilar infiltrates. Suspect atelectasis. She is encouraged regarding the increased use of the incentive spirometer. Sputum cultures pending. The patient is seen today October 14, 2024 in follow-up on the regular medical floor. She is awake and alert in no acute distress. Sitting up in bed. Doing a bit better today compared to yesterday. Maintaining good O2 saturations in the high 90s on 2 L/min per nasal cannula. She is afebrile. Hemodynamically stable. Working with the incentive spirometer. Sputum culture revealed no growth. Blood culture revealed no growth. White count 10.8. Hemoglobin 11.2. Platelets 345. Sodium 133. Potassium 6.2. Bicarb 31. BUN 44. Creatinine 0.9. Glucose 129. She remains on albuterol, Solu-Medrol, Tessalon Perles, Si ngulair. Antibiotics in the form of ceftriaxone and doxycycline. Remains on IV diuretics. Currently in a -1250 balance. The patient is seen today October 15, 2024 in follow-up on the regular medical floor. She is resting comfortably in bed. Awake and alert in no acute distress. Chest x-ray showing improved aeration. She is maintaining O2 saturations in the 90s on 2 L/min per nasal cannula. She continues with a dry nonproductive cough. No fever or chills. She remains on albuterol, Pulmicort inhalations, Singulair, Solu-Medrol. Antibiotics in the form of ceftriaxone and Vibramycin. Continued on IV diuretics. Continued on Mucinex as needed. The patient is seen today October 16, 2024 in follow-up on the regular medical floor. She is currently sitting up in bed. Awake and alert in no acute distress. Maintaining good O2 saturations in the 90s on room air. No worsening shortness of breath, cough or congestion. She remains on IV diuretics. Currently in a -1.7 L balance. Afebrile. Hemodynamically stable. White count 11.2. Hemoglobin 11.2. Platelets 437. Sodium 133. Potassium 5.4. Bicarb 33. BUN 38. Creatinine 0.9. Glucose 133. She is continued on bronchodilators, Tessalon Perles, Mucinex, Singulair and Solu-Medrol. This will be switched to a prednisone taper. She is anticoagulated with Eliquis. Objective - Vital Signs Vital signs: Vital Signs Temp 97.1 F L 10/16/24 07:41 Pulse 84 10/16/24 09:08 Resp 18 10/16/24 07:41 BP 106/63 10/16/24 07:41 Pulse Ox 96 10/16/24 07:41 FiO2 Intake & Output 10/15/24 10/16/24 10/16/24 18:59 06:59 18:59 Intake Total 400 Output Total 1700 Balance -1700 400 Weight 98.5 kg Intake: Oral 400 Output: Urine 1700 Other: Voiding Method Incontinent Diaper Diaper External Catheter External Catheter External Catheter # Voids 2 - Exam GENERAL EXAM: Alert, 88-year-old female, sitting up in bed, on room air, in no apparent distress. HEAD: Normocephalic. EYES: Normal reaction of pupils, equal size. NOSE: Clear with pink turbinates. THROAT: No erythema or exudates. NECK: No masses, no JVD. CHEST: No chest wall deformity. LUNGS: Equal air entry with few scattered rhonchi, end expiratory wheeze. CVS: S1 and S2 normal with no audible murmur, regular rhythm. ABDOMEN: No hepatosplenomegaly, normal bowel sounds, no guarding or rigidity. SPINE: No scoliosis or deformity SKIN: No rashes CENTRAL NERVOUS SYSTEM: No focal deficits, tone is normal in all 4 extremities. EXTREMITIES: There is 1+ peripheral edema. No clubbing, no cyanosis. Peripheral pulses are intact. - Labs CBC & Chem 7: 10/16/24 03:18 10/16/24 03:18 Labs: Abnormal Lab Results - Last 24 Hours (Table) 10/16/24 10/16/24 Range/Units 03:18 03:18 WBC 11.24 H (4.50-10.00) X 10*3/uL RBC 3.20 L (4.10-5.20) X 10*6/uL Hgb 11.2 L (12.0-15.0) g/dL Hct 34.8 L (37.2-46.3) % MCV 108.8 H (80.0-97.0) FL MCH 35.0 H (27.0-32.0) pg Immature Gran # 0.29 H (0.00-0.04) X 10*3/uL Neutrophils # 9.16 H (1.80-7.70) X 10*3/uL Eosinophils # 0.02 L (0.04-0.35) X 10*3/uL Sodium 133 L (135-145) mmol/L Chloride 94 L (96-109) mmol/L Carbon Dioxide 32.6 H (21.6-31.8) mmol/L BUN 37.8 H (9.0-27.0) mg/dL BUN/Creatinine Ratio 42.00 H (12.00-20.00) Ratio Glucose 133 H (70-110) mg/dL Microbiology - Last 24 Hours (Table) 10/10/24 19:16 Blood Culture - Final Blood Assessment and Plan Assessment: Acute exacerbation of mild intermittent chronic bronchial asthma, diastolic congestive heart failure. Procalcitonin negative. Remains on IV diuretics Leukocytosis secondary to above, improving Acute kidney injury secondary to dehydration, improving Hyponatremia secondary to above Hypokalemia secondary to above, improved Mild transaminitis secondary to above Chronic atrial fibrillation, anticoagulated with Eliquis Hypertension Hyperlipidemia History of gout History of mild intermittent chronic bronchial asthma Lifelong non-smoker History of congestive heart failure Plan: The patient was seen and evaluated Labs and medications reviewed Stable and on room air Cleared for discharge Continue HFA as needed Complete a prednisone taper Follow-up in our office in 1 week I have personally seen and examined the patient, performed the documentation and the assessment and plan as written. Number of minutes spent on the visit: 10 Dictation was produced using [employer] dictation software. Please excuse any grammatical, word or spelling errors.
== END 2024-10-16 14:37 | DRG 291 ==
LOC: EC 17:57 → 3SCARD 21:28 → 4SSUR 10-11 18:34
PROVIDERS: ADMIT Hospitalist; ATTEND Hospitalist
DX: I13.0 Hypertensive heart and chronic kidney disease with heart failure and stage 1 through stage 4 chronic kidney disease, or unspecified chronic kidney disease (principal); I50.43 Acute on chronic combined systolic (congestive) and diastolic (congestive) heart failure; J15.9 Unspecified bacterial pneumonia; N17.9 Acute kidney failure, unspecified; E87.1 Hypo-osmolality and hyponatremia; E86.0 Dehydration; I48.20 Chronic atrial fibrillation, unspecified; D63.1 Anemia in chronic kidney disease; Z79.01 Long term (current) use of anticoagulants; J45.21 Mild intermittent asthma with (acute) exacerbation; E66.9 Obesity, unspecified; G25.81 Restless legs syndrome; N18.9 Chronic kidney disease, unspecified; J98.11 Atelectasis; R65.10 Systemic inflammatory response syndrome (SIRS) of non-infectious origin without acute organ dysfunction; E87.5 Hyperkalemia; M10.9 Gout, unspecified; E78.5 Hyperlipidemia, unspecified; H40.89 Other specified glaucoma; G25.0 Essential tremor; E87.6 Hypokalemia; Z68.36 Body mass index [BMI] 36.0-36.9, adult; I25.10 Atherosclerotic heart disease of native coronary artery without angina pectoris; K21.9 Gastro-esophageal reflux disease without esophagitis; M81.0 Age-related osteoporosis without current pathological fracture; Z79.51 Long term (current) use of inhaled steroids; Z79.84 Long term (current) use of oral hypoglycemic drugs; Z79.899 Other long term (current) drug therapy; Z96.652 Presence of left artificial knee joint; Z20.822 Contact with and (suspected) exposure to COVID-19; Z88.0 Allergy status to penicillin; Z88.8 Allergy status to other drugs, medicaments and biological substances; Z88.1 Allergy status to other antibiotic agents; Z91.040 Latex allergy status; Z87.440 Personal history of urinary (tract) infections
CPT/HCPCS: 36415; 51702; 51798; 71045; 71046; 80048; 80053; 83605; 83880; 84132; 84145; 84484; 85025; 85610; 85652; 85730; 86140; 87040; 87070; 87205; 87636; 93005; 94640; 94760; 96365; 96366; 96367; 96368; 96375; 96376; 99285

== ENCOUNTER 2025-03-13 14:08 | Emergency (ER) | payer MEDICARE ==
[2025-03-13 14:27] VITALS: RESP 18
--- NOTE | 2025-03-13 14:36 | ED ---
General Adult HPI - General Chief complaint: Fall Stated complaint: Fall Time Seen by Provider: 03/13/25 14:11 Source: patient, EMS Mode of arrival: EMS Limitations: no limitations - History of Present Illness Initial comments: Dictation was produced using [employer] dictation software. please excuse any grammatical, word or spelling errors. Chief Complaint: 89-year-old female presents emergency department with fall History of Present Illness: 89-year-old female presents to the emergency department after fall. States that she usually stays at home because she is on water pills. Patient felt encouraged to be social. She went to a picnic states that it was hot. She states that after the picnic she was on her way home when she stood up fell to the ground. Patient does take anticoagulation medications. Denies any pain at the bedside. The ROS documented in this emergency department record has been reviewed and confirmed by me. Those systems with pertinent positive or negative responses have been documented in the HPI. All other systems are other negative and/or noncontributory. - Related Data Home Medications Medication Instructions Recorded Confirmed Ferrous Sulfate [Iron (65 MG 325 mg PO W/SUPPER 06/04/16 10/11/24 Elemental)] Fluticasone Nasal [place] [Flonase 1 spr EA NOSTRIL DAILY PRN 06/04/16 10/11/24 Nasal [place]] Isosorbide Mononitrate ER [Imdur] 30 mg PO DAILY 06/04/16 10/11/24 Metoprolol Tartrate [Lopressor] 25 mg PO BID 06/04/16 10/11/24 guaiFENesin [Mucinex] 600 mg PO Q12HR PRN 06/04/16 10/11/24 Albuterol Inhaler [Ventolin Hfa 1 - 2 puff INHALATION RT-QID PRN 01/26/24 10/11/24 Inhaler] Apixaban [Eliquis] 5 mg PO BID 01/26/24 10/11/24 Brimonidine Tartrate [Alphagan P 1 drop BOTH EYES BID 01/26/24 10/11/24 0.2% Ophth Soln] Budesonide [Pulmicort] 0.5 mg INHALATION RT-BID PRN 01/26/24 10/11/24 Bumetanide [BUMEX] 3 mg PO BID@0800,1200 01/26/24 10/11/24 Cetirizine HCl [Zyrtec] 10 mg PO W/LUNCH 01/26/24 10/11/24 L.acidoph,Paracasei, B.lactis 1 cap PO W/SUPPER 01/26/24 10/11/24 [Probiotic] Montelukast [Singulair] 10 mg PO HS 01/26/24 10/11/24 Pantoprazole [Protonix] 40 mg PO W/SUPPER 01/26/24 10/11/24 Potassium Chloride ER [K-Dur 20] 40 meq PO BID 01/26/24 10/11/24 Primidone 100 mg PO BID-W/MEALS 01/26/24 10/11/24 Rosuvastatin [Crestor] 10 mg PO HS 01/26/24 10/11/24 Vit C/E/Zn/Coppr/Lutein/Zeaxan 1 cap PO BID@1200,2100 01/26/24 10/11/24 [Preservision Areds 2 Softgel] allopurinoL 100 mg PO DAILY 01/26/24 10/11/24 rOPINIRole HCL [Requip] 1 mg PO BID@1700,2100 01/26/24 10/11/24 Benzonatate [Tessalon Perles] 100 mg PO TID 10/11/24 10/11/24 Cholecalciferol (Vitamin D3) 50 mcg PO W/LUNCH 10/11/24 10/11/24 [Vitamin D3 (50 Mcg = 2000 Iu) Chew Tab] Multivitamins, Thera [Multivitamin 1 tab PO W/LUNCH 10/11/24 10/11/24 (formulary)] [place]-3/Dha/Epa/Fish Oil [[place]-3 1 cap PO W/LUNCH 10/11/24 10/11/24 Fish Oil 1,000 mg Sfgl] traZODone HCL [Desyrel] 50 mg PO HS PRN 10/11/24 10/11/24 Previous Rx's Medication Instructions Recorded Acetaminophen Tab [Tylenol] 650 mg PO Q6HR PRN tab 10/16/24 predniSONE See Taper PO DIRECTED #30 tab 10/16/24 Allergies Allergy/AdvReac Type Severity Reaction Status Date / Time clindamycin Allergy Heavy Verified 03/13/25 14:26 chest/SOB Latex, Natural Rubber Allergy Rash/Hives Verified 03/13/25 14:26 levalbuterol Allergy Heavy Verified 03/13/25 14:26 chest/SOB Penicillins Allergy Rash/Hives Verified 03/13/25 14:26 clarithromycin AdvReac Nausea & Verified 03/13/25 14:26 Vomiting Review of Systems ROS Statement: Those systems with pertinent positive or pertinent negative responses have been documented in the HPI. ROS Other: All systems not noted in ROS Statement are negative. Past Medical History Past Medical History: Eye Disorder, GERD/Reflux, Hyperlipidemia, Hypertension, Osteoarthritis (OA) Additional Past Medical History / Comment(s): STAGE ONE GLAUCOMA History of Any Multi-Drug Resistant Organisms: None Reported Additional Past Surgical History / Comment(s): LT TKA X 2. ORIF LT LEG. COLONOSCOPY. HERNIA X 2 Additional Past Anesthesia/Blood Transfusion Reaction / Comment(s): OVER MEDICATED AFTER LT TKA. UTI. UNCONTROLLED PAIN BEFORE AND AFTER SURGERY Past Psychological History: No Psychological Hx Reported Smoking Status: Never smoker - Past Family History Mother Family Medical History: Cancer Additional Family Medical History / Comment(s): age 49 from breast cancer Father Family Medical History: Myocardial Infarction (MD) Additional Family Medical History / Comment(s): in his 60's from mi Brother(s) Family Medical History: Diabetes Mellitus Additional Family Medical History / Comment(s): 2nd brother was paralized from accident later from complications Sister(s) Family Medical History: Diabetes Mellitus General Exam - General Exam Comments Initial Comments: PHYSICAL EXAM: General Impression: Alert and oriented x3, not in acute distress HEENT: Normocephalic atraumatic, extra-ocular movements intact, pupils equal and reactive to light bilaterally, mucous membranes moist. Cardiovascular: Heart regular rate and rhythm Chest: Able to complete full sentences, no retractions, no tachypnea Abdomen: abdomen soft, non-tender, non-distended, no organomegaly Musculoskeletal: Pulses present and equal in all extremities, no peripheral edema Motor: no focal deficits noted Neurological: CN II-XII grossly intact, no focal motor or sensory deficits noted Skin: Intact with no visualized rashes Psych: Normal affect and mood Limitations: no limitations Course Vital Signs 03/13/25 03/13/25 14:23 16:07 Temperature 97.6 F 97.8 F Pulse Rate 91 84 Respiratory 18 18 Rate Blood Pressure 127/53 124/69 O2 Sat by Pulse 95 96 Oximetry EKG Findings - EKG Comments: EKG Findings:: My EKG interpretation: Ventricular rate 70, A-fib, TN interval not recorded, QRS 106, QTc 367. No TN prolongation, no QTC prolongation, no ST or T-wave changes noted. Overall, this EKG is unremarkable Medical Decision Making - Medical Decision Making Was pt. sent in by a medical professional or institution (, PA, RESIDENTIAL ASSISTANT, urgent care, hospital, or senior care...) When possible be specific @ -No Did you speak to anyone other than the patient for history (EMS, parent, family, police, friend...)? What history was obtained from this source @ -No Did you review nursing and triage notes (agree or disagree)? Why? @ -I reviewed and agree with nursing and triage notes Were old charts reviewed (outside hosp., previous admission, EMS record, old EKG, old radiological studies, urgent care reports/EKG's, senior care records)? Report findings @ -No old charts were reviewed Differential Diagnosis (chest pain, altered mental status, abdominal pain women, abdominal pain men, vaginal bleeding, musculoskeletal, weakness, fever, dyspnea, syncope, headache, dizziness, GI bleed, back pain, seizure, CVA, palpatations, mental health)? @ -Differential Weakness: Hypoglycemia, shock, sepsis, hyponatremia, anemia, infection, MD, ETOH, adverse medicine reaction, overdose, stroke, this is not meant to be an all-inclusive list. EKG interpreted by me (3pts min.). @ -See above X-rays interpreted by me (1pt min.). @ -Pelvis x-ray chest x-ray shows no acute processes CT interpreted by me (1pt min.). @ -CT head C-spine shows no acute processes U/S interpreted by me (1pt. min.). @ -None done What testing was considered but not performed or refused? (CT, X-rays, U/S, labs)? Why? @ -None What meds were considered but not given or refused? Why? @ -None Was smoking cessation discussed for >3mins.? @ -No Were there social determinants of health that impacted care today? How? (Homelessness, low income, unemployed, alcoholism, drug addiction, transportation, low edu. Level, literacy, decrease access to med. care, usp, rehab)? @ -No Was there de-escalation of care discussed even if they declined (Discuss DNR or withdrawal of care, Hospice)? DNR status @ -No What co-morbidities impacted this encounter? (DM, HTN, Smoking, COPD, CAD, Ca ncer, CVA, ARF, Chemo, Hep., AIDS, mental health diagnosis, sleep apnea, morbid obesity)? @ -None Was patient admitted / discharged? Hospital course, mention meds given and route, prescriptions, significant lab abnormalities, going to OR and other pertinent info. @ -89-year-old female presents emergency department after fall. Patient states that it was hot and caused her to feel little faint fell to the ground. Patient feels fine the bedside states that she does not leave the house because when its warm outside she feels a little faint. Vital signs stable patient well-appearing at the bedside. Physical examination is benign. Labs and imaging are unremarkable. Reevaluated bedside 4:58 PM found to be stable to condition. Patient will be discharged. Chris follow-up primary care doctor. Did you discuss the management of the patient with other professionals (professionals i.e. , PA, RESIDENTIAL ASSISTANT, lab, RT, psych nurse, social media senior associate, insurance business analyst, teacher, animal park code enforcement officer, case management coordinator)? Give summary @ -No Was critical care preformed (if so, how long)? @ -No Undiagnosed new problem with uncertain prognosis? @ -No Drug Therapy requiring intensive monitoring for toxicity (Heparin, Nitro, Ins ulin, Cardizem)? @ -No Were any procedures done? @ -No Diagnosis/symptom? Acute, or Chronic, or Acute on Chronic? Uncomplicated (without systemic symptoms) or Complicated (systemic symptoms)? @ -Fall Side effects of treatment? @ -No Exacerbation, Progression, or Severe Exacerbation? @ -No Poses a threat to life or bodily function? How? (Chest pain, USA, MD, pneumonia, PE, COPD, DKA, ARF, appy, cholecystitis, CVA, Diverticulitis, Homicidal, Suicidal, threat to staff... and all critical care pts) @ -No - Lab Data Result diagrams: 03/13/25 14:51 03/13/25 14:51 Lab Results 06/17/25 06/17/25 Range/Units 14:51 14:51 WBC 5.38 (4.50-10.00) 10*3/uL RBC 3.37 L (4.10-5.20) 10*6/uL Hgb 12.3 (12.0-15.0) g/dL Hct 34.3 L (37.2-46.3) % MCV 101.8 H (80.0-97.0) fL MCH 36.5 H (27.0-32.0) pg MCHC 35.9 (32.0-37.0) g/dL Plt Count 180 (140-440) 10*3/uL MPV 10.0 (9.5-12.2) fL Immature Gran % (Auto) 0.2 % Neutrophils % 50.4 % Lymphocytes % 34.2 % Monocytes % 10.8 % Eosinophils % 3.5 % Basophils % 0.9 % Immature Gran # 0.01 (0.00-0.04) 10*3/uL Neutrophils # 2.71 (1.80-7.70) 10*3/uL Lymphocytes # 1.84 (0.90-5.00) 10*3/uL Monocytes # 0.58 (0.20-1.00) 10*3/uL Eosinophils # 0.19 (0.04-0.35) 10*3/uL Basophils # 0.05 (0.00-0.10) 10*3/uL Sodium 136 L (137-145) mmol/L Potassium 3.7 (3.5-5.1) mmol/L Chloride 96 L (98-107) mmol/L Carbon Dioxide 32 H (22-30) mmol/L Anion Gap 8 mmol/L BUN 66 H (7-17) mg/dL Creatinine 1.06 H (0.52-1.04) mg/dL Est GFR (CKD-EPI)AfAm 54 (>60 ml/min/1.73 sqM) Est GFR (CKD-EPI)NonAf 47 (>60 ml/min/1.73 sqM) Glucose 130 H (74-99) mg/dL Calcium 9.1 (8.4-10.2) mg/dL Disposition Clinical Impression: Fall Disposition: HOME SELF-CARE Condition: Fair Instructions (If sedation given, give patient instructions): Fall Prevention for Older Adults (ED) Is patient prescribed a controlled substance at d/c from ED?: No Referrals: Bharath Hermosillo MD [Primary Care Provider] - 1-2 days Time of Disposition: 16:57
--- NOTE | 2025-03-13 14:41 | CT ---
EXAMINATION TYPE: CT brain orly kennedy DATE OF EXAM: 03/13/2025 COMPARISON: None CLINICAL INDICATION: Female, 89 years old with history of fall; PHH, PAIN AFTER FALL. PT ON THINNERS TECHNIQUE: CT scan of the head and cervical spine are performed without contrast. CT DLP: 1576.[address] CTDI: mGy Automated exposure control for dose reduction was used. Findings: Head CT: Ventricles, basal cisterns and sulci over convexities within normal limits for the patient's age and there is no mass, mass effect or shift of midline structures. No abnormal density is seen throughout the brain parenchyma and there is no acute intra or extra-axia l hemorrhage. Posterior fossa including the brainstem, fourth ventricle and cerebellar pontine angles are grossly n ormal. The intraorbital contents appear normal and symmetric. Visualized paranasal sinuses are well aerated. CT cervical spine: Craniovertebral junction relationships and prevertebral soft tissues are normal. The cervical vertebral segments are normal in height and alignment and there is no fracture subluxati on. There is marked disc space narrowing and spondylosis at the C4-5, C5-6 and C6-7 levels indicating mar ked degenerative disc disease. There is mild facet arthropathy and moderate uncovertebral joint arthr opathy in the lower cervical spine. The bony cervical canal is widely patent. There is severe bony neural foraminal stenosis at C5-6 on t he right. The paraspinal soft tissues unremarkable. IMPRESSION: 1. Head CT: No acute bleed or mass effect. 2. CT cervical spine: No acute trauma. Degenerative changes as described above. [facility], , 03/13/2025 2:39 PM
[2025-03-13 15:10] LABS: Basophils # (A) 0.05 10*3/uL (0.00-0.10); Basophils % (A) 0.9 %; Eosinophils # (A) 0.19 10*3/uL (0.04-0.35); Eosinophils % (A) 3.5 %; HCT 34.3 % (37.2-46.3); HGB 12.3 g/dL (12.0-15.0); Lymphocytes # (A) 1.84 10*3/uL (0.90-5.00); Lymphocytes % (A) 34.2 %; MCH 36.5 pg (27.0-32.0); MCHC 35.9 g/dL (32.0-37.0); MCV 101.8 fL (80.0-97.0); Monocytes # (A) 0.58 10*3/uL (0.20-1.00); Monocytes % (A) 10.8 %; Neutrophils # (A) 2.71 10*3/uL (1.80-7.70); Neutrophils % (A) 50.4 %; Platelet Count 180 10*3/uL (140-440); RBC 3.37 10*6/uL (4.10-5.20); RDW 12.4 % (11.5-14.5); WBC 5.38 10*3/uL (4.50-10.00)
--- NOTE | 2025-03-13 15:24 | XR ---
EXAMINATION TYPE: XR chest 1V portable DATE OF EXAM: 03/13/2025 3:18 PM COMPARISON: Chest radiographs from 10/14/2024. CLINICAL INDICATION: Female, 89 years old with history of fall; TECHNIQUE: XR chest 1V portable Frontal view of the chest. FINDINGS: Lungs/Pleura: There is no evidence of pleural effusion, focal consolidation, or pneumothorax. Pulmonary vascularity: Unremarkable. Heart/mediastinum: Cardiomediastinal silhouette is unremarkable. Musculoskeletal: No acute osseous pathology. Other findings: None IMPRESSION: Cardiomegaly and mild pulmonary vascular congestion. Correlate with BNP for congestive heart failure. [facility], , 03/13/2025 3:22 PM
--- NOTE | 2025-03-13 15:27 | XR ---
EXAMINATION TYPE: XR pelvis AP view DATE OF EXAM: 03/13/2025 3:18 PM COMPARISON: None CLINICAL INDICATION: Female, 89 years old with history of fall; pain TECHNIQUE: XR pelvis AP view, examined in a single projection. FINDINGS: Proximal left femur fixation hardware with fractured most proximal screw seen on frontal vi ew. There is a well-corticated osseous body in the lateral hip region likely postsurgical/posttraumat ic. There is no evidence of fracture or dislocation. There is no soft tissue abnormality. No abnorma l calcifications are present. Multilevel degenerative changes of the lower spine. The hips appear int act. Osteophyte formation of the superior acetabulum bilaterally with mild joint space narrowing. IMPRESSION: 1. No evidence for acute fracture 2. Fracture screw involving the proximal fixation plate of the left femur. [facility], , 03/13/2025 3:25 PM
[2025-03-13 15:46] LABS: African American GFR (CKD) 54 (>60 ml/min/1.73 sqM); Anion Gap 8 mmol/L; Blood Urea Nitrogen 66 mg/dL (7-17); Calcium 9.1 mg/dL (8.4-10.2); Carbon Dioxide 32 mmol/L (22-30); Chloride 96 mmol/L (98-107); Glucose 130 mg/dL (74-99); Non-African American GFR(CKD) 47 (>60 ml/min/1.73 sqM); Sodium 136 mmol/L (137-145)
[2025-03-13 15:53] LABS: Potassium 3.7 mmol/L (3.5-5.1)
[2025-03-13 16:09] VITALS: TEMP 97.8
[2025-03-13 18:21] VITALS: BP 124/78; PULSE 68
== END 2025-03-13 18:24 | disposition home or self-care (01) ==
LOC: EC 14:08
DX: Z04.3 Encounter for examination and observation following other accident (principal); Z88.1 Allergy status to other antibiotic agents; Z88.8 Allergy status to other drugs, medicaments and biological substances; Z88.0 Allergy status to penicillin; Z91.040 Latex allergy status; W19.XXXA Unspecified fall, initial encounter
CPT/HCPCS: 36415; 70450; 71045; 72125; 72170; 80048; 85025; 93005; 99285